=== PATIENT | female | born 1970 | race Caucasian/White ===

== ENCOUNTER 2020-07-18 14:27 | Outpatient (REF) | payer OTHER, SELFPAY ==
--- NOTE | 2020-07-18 | MM_ITS ---
EXAMINATION: MM SCREENING DIGITAL BREAST TOMOSYNTHESIS, BILATERAL CLINICAL INFORMATION: Screening. Asymptomatic. The lifetime risk of breast cancer based on the Tyrer-Cuzick Model is 8%. COMPARISON: Mammography: 07/20/2019, 07/14/2019, 04/07/2018, 12/29/2013; ultrasound right breast 07/20/2019 TECHNIQUE: Digital breast tomosynthesis is performed in both the craniocaudal and mediolateral oblique views along with computer-aided detection (CAD). Synthesized 2D images are generated from the tomosynthesis. FINDINGS: The breasts are heterogeneously dense, which may obscure small masses (ACR BI-RADS breast composition Category c). There are no significant masses, abnormal calcifications, or other abnormalities. The axilla are unremarkable. There is chronic bilateral nipple retraction on CC view similar to prior studies. MM/MM tomosynthesis screening BI IMPRESSION: No significant changes from prior exams. ASSESSMENT: BI-RADS 2: Benign RECOMMENDATION: Routine annual mammography screening. This patient's information was entered into a reminder system with a target due date for their next mammogram.
== END 2020-07-18 14:28 | disposition home or self-care (01) ==
LOC: HO.MAMMO 14:27
PROVIDERS: PCP Internal Medicine; Visit Provider Internal Medicine
DX: Z12.31 Encounter for screening mammogram for malignant neoplasm of breast (principal)
CPT/HCPCS: 77063; 77067

== ENCOUNTER 2021-07-27 13:37 | Outpatient (REF) | payer OTHER, SELFPAY ==
[2021-07-27 19:10] LABS: Free T4 (Free Thyroxine) 1.57 ng/dL (0.71-1.85); Thyroid Stimulating Hormone 1.14 uIU/mL (0.32-4.0)
[2021-07-30 04:11] LABS: SARS COV2 IgG Negative (Negative)
== END 2021-07-27 13:38 | disposition home or self-care (01) ==
LOC: HO.MANLDS 13:37
PROVIDERS: PCP Physician Assistant; Visit Provider Physician Assistant
DX: E03.9 Hypothyroidism, unspecified (principal); U07.1 COVID-19
CPT/HCPCS: 36415; 84439; 84443; 86769

== ENCOUNTER 2021-10-05 10:41 | Outpatient (REF) | payer OTHER, SELFPAY ==
--- NOTE | ~2021-10-05 | MM_ITS ---
EXAMINATION: MM SCREENING DIGITAL BREAST TOMOSYNTHESIS, BILATERAL CLINICAL INFORMATION: Screening. Asymptomatic. The lifetime risk of breast cancer based on the Tyrer-Cuzick Model is 8%. COMPARISON: Mammography: 07/18/2020, 07/20/2019, 07/14/2019, 04/07/2018; right breast ultrasound 07/20/2019. TECHNIQUE: Digital breast tomosynthesis is performed in both the craniocaudal and mediolateral oblique views along with computer-aided detection (CAD). Synthesized 2D images are generated from the tomosynthesis. FINDINGS: The breasts are heterogeneously dense, which may obscure small masses (ACR BI-RADS breast composition Category c). There is no interval mass or architectural abnormality or developing density. Mild bilateral chronic nipple retraction is again demonstrated. There are some scattered bilateral punctate and vascular calcifications again seen. There are no significant changes. MM/MM tomosynthesis screening BI IMPRESSION: No significant changes from prior studies. ASSESSMENT: BI-RADS 2: Benign RECOMMENDATION: Routine annual mammography screening. This patient's information was entered into a reminder system with a target due date for their next mammogram.
== END 2021-10-05 10:42 | disposition home or self-care (01) ==
LOC: HO.MAMMO 10:41
PROVIDERS: PCP Internal Medicine; Visit Provider Internal Medicine
DX: Z12.31 Encounter for screening mammogram for malignant neoplasm of breast (principal)
CPT/HCPCS: 77063; 77067

== ENCOUNTER 2021-12-20 07:57 | Outpatient (REF) | payer OTHER, SELFPAY ==
--- NOTE | ~2021-12-20 | XR_ITS ---
EXAMINATION: BILATERAL KNEES AND LEFT ANKLE CLINICAL INFORMATION: Psoriatic arthropathy, chronic bilateral knee pain COMPARISON: Left ankle 01/29/2017, bilateral knees 06/09/2012 TECHNIQUE: 3 views ankle, 2 views each knee FINDINGS: Left ankle, no significant abnormality is seen without evidence of arthritis. Again noted are 2 small accessory ossicles adjacent to the cuboid. Right knee: There is some minimal narrowing of the medial compartment. A tiny medial distal femoral condyle osteophyte is noted. No joint effusion. No chondrocalcinosis. Left knee: No significant bone joint or soft tissue abnormality is seen. XR/XR knee RT 2V IMPRESSION: Some mild degenerative changes in the knees with some minimal narrowing of the medial compartments bilaterally.
--- NOTE | ~2021-12-20 | XR_ITS ---
EXAMINATION: BILATERAL KNEES AND LEFT ANKLE CLINICAL INFORMATION: Psoriatic arthropathy, chronic bilateral knee pain COMPARISON: Left ankle 01/29/2017, bilateral knees 06/09/2012 TECHNIQUE: 3 views ankle, 2 views each knee FINDINGS: Left ankle, no significant abnormality is seen without evidence of arthritis. Again noted are 2 small accessory ossicles adjacent to the cuboid. Right knee: There is some minimal narrowing of the medial compartment. A tiny medial distal femoral condyle osteophyte is noted. No joint effusion. No chondrocalcinosis. Left knee: No significant bone joint or soft tissue abnormality is seen. XR/XR knee LT 2V IMPRESSION: Some mild degenerative changes in the knees with some minimal narrowing of the medial compartments bilaterally.
--- NOTE | ~2021-12-20 | XR_ITS ---
EXAMINATION: BILATERAL KNEES AND LEFT ANKLE CLINICAL INFORMATION: Psoriatic arthropathy, chronic bilateral knee pain COMPARISON: Left ankle 01/29/2017, bilateral knees 06/09/2012 TECHNIQUE: 3 views ankle, 2 views each knee FINDINGS: Left ankle, no significant abnormality is seen without evidence of arthritis. Again noted are 2 small accessory ossicles adjacent to the cuboid. Right knee: There is some minimal narrowing of the medial compartment. A tiny medial distal femoral condyle osteophyte is noted. No joint effusion. No chondrocalcinosis. Left knee: No significant bone joint or soft tissue abnormality is seen. XR/XR ankle LT min 3V IMPRESSION: Some mild degenerative changes in the knees with some minimal narrowing of the medial compartments bilaterally.
== END 2021-12-20 07:58 | disposition home or self-care (01) ==
LOC: HO.XRAY 07:57
PROVIDERS: PCP Internal Medicine; Visit Provider Internal Medicine Rheumatology
DX: L40.50 Arthropathic psoriasis, unspecified (principal)
CPT/HCPCS: 73560; 73610

== ENCOUNTER 2022-06-23 18:05 | Emergency (ER) | payer OTHER, SELFPAY ==
--- NOTE | ~2022-06-23 | CT_ITS ---
EXAMINATION: CT ABDOMEN AND PELVIS WITHOUT CONTRAST CLINICAL INFORMATION: Flank pain COMPARISON: None TECHNIQUE: Multidetector volumetric imaging was performed from the superior aspect of the liver through the pubic symphysis. Sagittal and coronal reformatted images were obtained on the technologist's workstation. This CT examination was performed using dose optimization techniques as appropriate, variously including the following: *Automated exposure control *Adjustment of mA and/or kV according to patient size (this includes techniques or standardized protocols for targeted exams where dose is matched to indication/reason for exam; i.e. extremities or head) *Use of iterative reconstruction technique DLP: 647 mGy-cm FINDINGS: LUNG BASES: Solid right lower lobe pulmonary micronodule, 4:1. ABDOMINAL AND PELVIC WALL: Unremarkable. LIVER AND BILIARY TREE: Unremarkable. GALLBLADDER: Unremarkable. PANCREAS: Unremarkable. SPLEEN: Unremarkable. ADRENAL GLANDS: Unremarkable. KIDNEYS AND URETERS: A punctate obstructing stone is noted in the distal left ureter, 4:539, with with question of possible additional stone slightly distally 4:574 which results in mild proximal hydroureteronephrosis. Few additional punctate nonobstructing bilateral renal stones are also seen. Left renal hypodensity too small to characterize. GASTROINTESTINAL TRACT: Colonic diverticulosis without evidence of diverticulitis. Normal appendix. VASCULAR: Retroaortic left renal vein. LYMPH NODES/PERITONEUM: No lymphadenopathy. FREE FLUID: None. BLADDER: Unremarkable. PELVIC VISCERA: Sclerosis of the sacroiliac joints which could be seen in the setting of osteitis condensans ilii. OSSEOUS STRUCTURES: Unremarkable. CT/CT abdomen pelvis wo IV con IMPRESSION: * A punctate obstructing stone is noted in the distal left ureter, with question of possible additional stone slightly distally which results in mild proximal hydroureteronephrosis. Few additional punctate nonobstructing bilateral renal stones are also seen. * Solid right lower lobe pulmonary micronodule. Assuming patient has no history of malignancy, recommend follow-up per Fleischner Society recommendations. According to the UPDATED 2017 Fleischner Society recommendations, the advised followup imaging for solid nodules < 6 mm is: * LOW RISK PATIENT: No routine follow up. * HIGH RISK PATIENT: Optional CT at 12 months.
[2022-06-23 20:16] VITALS: BP 124/55; PULSE 58; RESP 18; TEMP 36.5; O2SAT 99; BMI 32.1
[2022-06-23 20:59] LABS: Appearance Urine Clear; Color Urine Yellow; Glucose Urine UA Negative (Negative); Leukocyte Esterase Urine Trace (Negative); Nitrite Urine Negative (Negative); PH 5.5 (5.0-9.0); Specific Gravity - Urine 1.025 (1.005-1.025); UMIC TRIGGER UACC YES; Urine Blood Large (3+) (Negative); Urine Ketones Negative (Negative); Urine Protein Trace mg/dL (Neg-Trace)
[2022-06-23 21:04] LABS: Bacteria Urine None Seen (None Seen); Hyaline Casts Urine 0-2 /LPF (0-2); RBC Urine >20 /HPF (0-2); Squamous Epithelial Cell Urine 0-2 /HPF (0-2); WBC Urine 0-5 /HPF (0-5)
--- OUTSIDE RECORDS SUMMARY | 2022-06-23 22:47 | XMS_ITS ---
:1970 Author Care Team Providers Name Role Phone Noemy Del Cid Mehdi Primary Care Provider Unavailable Allergies Code Code System Name Reaction Severity Status Onset 953741 RxNorm Humira Rash ? Active ? Penicillin Rash Moderate Active ? ? Respiratory Distress Mild Active ? Medications Name Status Start Date Stop Date ? ? albuterol sulfate HFA 90 mcg/actuation aerosol inhaler Active ? Not available azithromycin 250 mg tablet Active ? Not a vailable TAKE 2 TABLETS BY MOUTH TODAY, THEN TAKE 1 TABLET DAILY FOR 4 D AYS betamethasone dipropionate 0.05 % lotion Completed ? 05/24/2020 Cosentyx Pen 300 mg/2 Pens (150 mg/mL) subcutaneous Active ? Not available cyclobenzaprine 10 mg tablet Completed ? 01/2019 Take 1 tablet every day by oral route at bedtime. cyclosporine 0.05 % eye drops in a dropperette Active ? Not available diclofenac 1 % topical gel Active ? Not a vailable APPLY 2G TO AFFECTED AREA EVERY 4-6 HOURS NEEDED. diclofenac sodium 50 mg tablet,delayed release Completed ? 05/24/2020 erythromycin 5 mg/gram (0.5 %) eye ointment Completed ? 06/30/2019 folic acid 1 mg tablet Active ? Not avail able Humira(CF) Pen 40 mg/0.4 mL subcutaneous kit Completed ? 06/30/2019 iron Active ? Not available 325 mg qd levothyroxine 112 mcg tablet Active ? Not available meloxicam 15 mg tablet Completed ? 9 methotrexate sodium 2.5 mg tablet Active ? Not available TAKE 8 TABLETS BY MOUTH ONE TIME PER WEEK methylprednisolone 4 mg tablets in a dose pack Active ? Not available USE DIRECTED molnupiravir 200 mg capsule (EUA) Active ? Not available TAKE 4 CAPSULES EVERY 12 HOURS BY ORAL ROUTE FOR 5 DAYS. nabumetone 750 mg tablet Active ? Not regina ilable Otezla 30 mg tablet Active ? Not availabl e Take 1 mg twice a day by oral route for 30 days. Otezla Starter 10 mg (4)-20 mg (4)-30 mg(47) tablets in Complete d ? 06/30/2019 a dose pack TobraDex 0.3 %-0.1 % eye ointment Completed ? 05/24/2020 Vitamin D3 50 mcg (2,000 unit) tablet Active ? Not available Take 1 tablet every day by oral route. Xeljanz XR 11 mg tablet,extended release Active ? Not available Problems Name Status Onset Date Source ? Hypothyroidism Active 04/08/2018 ? 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 Vitamin D Deficiency Active 06/30/2019 ? Body Mass Index 25-29 - Overweight Active 06/30/2019 ? Wears Bifocal Glasses Active 06/30/2019 ? Covid-19 Active 01/09/2022 ? Pneumonia Caused by SARS-CoV-2 Active 01/11/2022 ? Acute Pharyngitis Active 05/29/2022 ? Procedures Date Name Performed by ? 07/09/2013 Arthroscopic Surgery Information not regina ilable 06/30/2019 Electrocardiogram [facility] [address],[facility] [place] [phone] (Work Place) 06/30/2019 Exercise Stress Test [facility] (Shaista ging) [place] [address] (Work Place) 07/16/2019 MAMMO, Diagnostic, Digital, Unilateral [facility] (Imaging) [place] [address] (Work Place) 05/24/2020 US, Thyroid [facility]Scheduling Dept[facility] [address], [place] [address] (Work Place) Results Lab Results Date Name Specimen Result Interpretation Description Value Range Status Address ? 07/27/2021 TSH + Free T4, Serum ? No observation ? ? ? Keshawn recorded. [facility] (Medical Records): [address] [place] [address] 05/24/2020 TSH + Free T4, Serum ? No observation ? ? ? Keshawn recorded. [facility] : [address] [place] [address] 07/09/2019 Vitamin D, ? No observation ? ? ? Keshawn 25-Hydroxy, Total, recorded. [facility] Serum Laboratory : [address] [place] [address] 07/09/2019 TSH + Free T4, Serum ? No observation ? ? ? Chauncey recorded. [facility] Laboratory : [address] [place] [address] 07/09/2019 Lipids, Total, Serum ? No observation ? ? ? Chauncey recorded. [facility] : [address] [place] [address] 10/13/2018 Vitamin D, 25-Hydroxy ? No observation ? ? ? Chauncey + 1,25-Dihydroxy, recorded. [facility] Serum Laboratory : [address] [place] [address] 10/13/2018 Iron + TIBC + ? No observation ? ? ? Chauncey Ferritin, Serum recorded. [facility] : [address] [place] [address] 04/08/2018 Vitamin D, ? No observation ? ? ? Chauncey 25-Hydroxy, Total, recorded. [facility] : [address] [place] [address] 04/08/2018 Iron + TIBC + ? No observation ? ? ? Chauncey Ferritin, Serum recorded. [facility] : [address] [place] [address] 04/08/2018 TSH + Free T4, Serum ? No observation ? ? ? Chauncey recorded. [facility] : [address] [place] [address], Chauncey ? Electrocardiogram ? Rate & Rhythm 59 sinus ? ? [facility] Internal Medicine: [address] ,[place] ? ? ? Qrs 98 ms ? ? [facility] Internal Medicine: [address] ,[place] ? ? ? AL Interval 134 ms ? ? [facility] Medicine: [address] ,[place] ? ? ? QRS Duration 98 ms ? ? [facility] Internal Medicine: [address] ,[place] ? ? ? QT Interval 420 ? ? [facility] Internal Medicine: [address] ,[place] Past Encounters None recorded. Social History Tobacco Smoking Status Never Smoker Vaccine List Vaccine Type COVID-19, mRNA, LNP-S, PF, 30 mcg/0.3 mL dose (Venafi) 10/06/2020 11/06/2020 Tdap 0.5 mL 0.5 mL Plan of Care Reminders Provider Appointments None recorded. ? ? Lab None recorded. ? ? Referral None recorded. ? ? Procedures None recorded. ? ? Surgeries None recorded. ? ? Imaging None recorded. ? ? Vitals 05/24/2020 09:30AM NEW PROBLEM 15 Height Weight BMI Blood Pressure 5 ft 2 in 163.7 lbs 29.9 kg/m2 120/70 mm[Hg] 06/30/2019 01:30PM ANNUAL EXAM Height Weight BMI Blood Pressure 5 ft 2 in 161.6 lbs 29.6 kg/m2 110/78 mm[Hg] 10/14/2018 09:00AM FOLLOW UP 15 Height Blood Pressure 5 ft 2.25 in 110/62 mm[Hg] 04/08/2018 11:45AM NEW PATIENT 30 Height Weight BMI Blood Pressure 5 ft 2.25 in 157.7 lbs 28.6 kg/m2 94/62 mm[Hg]
--- NOTE | 2022-06-23 22:56 | ED.GENADULT ---
HPI - General Adult General Chief complaint: General Medical Stated complaint: lower back pain,? UTI Time Seen by Provider: 06/23/22 22:55 Source: patient and family (, Bk) Mode of arrival: ambulatory Limitations: no limitations History of Present Illness HPI narrative: 51-year-old female who presents emergency department for evaluation frequency, lower abdominal pressure, left flank pain. Patient states that over the last 3-4 days she has had felt a pressure-like sensation in her lower bladder. She states she has also had frequency where she will urinate and the need to urinate again but only in small amounts. She denied dysuria. She states that today she had a sudden onset of severe left flank pain at 16:00 hours. The pain was a constant sharp pain that came on suddenly was greater than 10/10. She had associated nausea and 2 episodes of vomiting. She states she took Tylenol at 16:00 hours with only minimal improvement of her pain. On presentation to the emergency room her pain was greater than 10/10 at the time my evaluation the patient's pain is 5/10. This is the patient's 1st episode of this type of pain. 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 complaint: Left flank pain Onset (ago): hour(s) (6) Location: left (Flank) Radiation: non-radiation Severity: severe Severity scale (1-10): >10 Quality: sharp Pain Consistency: constant Relieving factors: none Exacerbating factors: none Associated symptoms: nausea/vomiting and other (Urinary frequency) Treatments prior to arrival: other (Tylenol) Related Data Previous Rx's Medication Instructions Recorded morphine 15 mg immediate release 15 mg PO Q4-6H PRN pain #14 tabs 06/24/22 tablet Allergies Allergy/AdvReac Type Severity Reaction Status Date / Time adalimumab [Humira] Allergy Unknown Verified 07/20/19 00:00 penicillin V Allergy Unknown hives, Verified 11/19/17 00:00 throat swelling Penicillins [PENICILLINS] Allergy Unknown HIVES, Unverified 05/11/20 14:51 DIFF BREATHING penicillin Allergy Unknown Uncoded 07/20/19 00:00 Review of Systems Review of Systems: Yes all other systems are reviewed and are negative PMFSH Past Medical History PMFSH Narrative: Past medical history: Psoriatic arthritis on biologic agent, 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 Past surgical history left kidney surgery (partial removal secondary to infection when she was 6 years old. Social history: She denies tobacco, alcohol and drug use. Social History Social History Advance Directives: No Advance Directives Information Provided: No Patient : No Physical Exam ED Vital Signs: Vital Signs - 24 hr 06/23/22 20:16 06/23/22 23:56 Temperature 97.7 F 98.3 F Pulse Rate 58 51 Respiratory Rate 18 16 Blood Pressure 124/55 L 112/48 L Pulse Oximetry 99 99 Oxygen Delivery Method Room Air Room Air BMI result Body Mass Index 32.1 Const General: cooperative and no acute distress Orientation/consciousness: oriented to person and oriented to place Limitations: no limitations HENMT Head: Yes normal to inspection, Yes normocephalic and Yes atraumatic Ears: external ears normal General nose exam: Normal external nose present Face and sinus: Yes normal facial exam Mouth: Normal oral and palatal mucosa present Throat: Yes posterior oropharynx normal Eyes General: appearance normal, both eyes and all related structures Pupils: Equal, round and reactive pupils present Neck Neck: Yes normal visual inspection, Yes no lymphadenopathy, Yes trachea midline and Yes supple Chest Chest palpation & inspection: normal inspection of the chest and normal palpation of entire chest wall Resp Effort & Inspection: normal respiratory effort and able to speak in complete sentences Auscultation: clear to auscultation bilaterally Cardio Rate: regular rate Rhythm: regular rhythm Heart sounds: S1 normal heart sound present, S2 normal heart sound present and no murmurs GI Inspection: Yes normal to inspection Palpation (GI): Soft to palpation, Tenderness to palpation present (GI) in the LLQ (Moderate), in the RLQ (Mild) and suprapubicly (Moderate) and no guarding Auscultation: normal bowel sounds General: Yes CVA tenderness on the left (Mild) Back/Spine/Pelvis Back: CVA tenderness Skin General skin exam: no rashes or lesions noted Neuro General: oriented to person and oriented to place Cranial nerves: Yes CN's II-XII intact bilaterally and Yes Equal, round and reactive pupils present Cognition (Neuro): normal cognition Motor exam (neuro): 5/5 motor strength present throughout Extrem General: Yes normal to inspection Psych Appearance: grossly normal Speech and movement: Normal speech and movement present Affect: normal affect Attitude: cooperative Thought process: Normal thought process present Thought content: Normal thought content present Course Course Course Narrative: 51-year-old female who presents emergency department for evaluation of lower abdominal pressure with urinary frequency times 2 days with sudden onset of left flank pain that occurred today at 16:00 hours which was a constant, sharp pain which was greater than 10/10. Patient had associated nausea and vomiting. At the time of my evaluation her pain improved to 5/10 without treatment. Vital signs were unremarkable. Physical examination did revealed mild left CVA tenderness, moderate suprapubic and left lower quadrant tenderness and mild right lower quadrant tenderness. The patient did have a urinalysis at triage which revealed 3+ blood and trace leukocyte esterase with the microscopic revealing greater than 20 RBCs, 0 WBCs and no bacteria. Patient's presentation is consistent with kidney stone/ureteral stone. I did order laboratory evaluation includes CBC, CMP and lipase. I will obtain a CT scan of the abdomen pelvis without IV contrast to further evaluate her abdominal pain. 0130: Patient did get improvement with the above treatment. Laboratory evaluation did reveal an elevated WBC 42218 and elevated BUN of [address] scan of the abdomen pelvis with IV contrast revealed 2 punctate stones in the distal left ureter with mild proximal hydroureteronephrosis. Patient also had additional bilateral punctate nonobstructing renal stones. There were several incidental findings which I did discuss with the patient as well. Patient was advised to take Tylenol for pain and for pain not relieved by Tylenol she was prescribed morphine. She is also prescribed Zofran ODT for her nausea and vomiting. She was given printed and verbal instructions. She will need to follow-up with our on-call urologist. Medical Decision Making Lab Data Result diagrams: 06/23/22 23:24 06/23/22 23:24 Labs: Lab Results 06/23/22 06/23/22 06/23/22 Range/Units 20:32 23:24 23:24 WBC 19.1 H (4.8-10.8) X10*3/uL RBC 4.44 (4.20-5.50) X10*6/uL Hgb 13.9 (12.0-16.0) g/dl Hct 41.5 (37.0-47.0) % MCV 93.5 (80.0-98.0) fL MCH 31.3 (27.0-33.0) pg MCHC 33.5 (31.0-35.0) g/dl RDW 13.5 (11.0-16.0) % Plt Count 447 H (160-400) X10*3/uL MPV 9.3 L (9.4-12.3) fL Immature Gran % (Auto) 0.7 H (0.0-0.4) % Neut % (Auto) 79.8 H (45-73) % Lymph % (Auto) 14.9 L (20-40) % [place] % (Auto) 4.3 (2-11) % Eos % (Auto) 0.1 (0-4) % Baso % (Auto) 0.2 (0-2) % Lymph # (Auto) 2.8 (1.2-4.9) X10*3/uL [place] # (Auto) 0.8 (0.1-1.2) X10*3/uL Eos # (Auto) 0.0 (0.0-0.4) X10*3/uL Baso # (Auto) 0.0 (0.0-0.2) X10*3/uL Abs Immat Gran (auto) 0.14 H (0.00-0.03) X10*3/uL Absolute Neuts (auto) 15.2 H (2.0-8.3) x10*3/uL Absolute Nucleated RBC 0.000 (0.0-0.012) X10*3/uL Nucleated RBC % (auto) 0.0 (0.0-0.2) /100WBC Sodium 140 (135-145) mmol/L Potassium 4.1 (3.3-5.1) mmol/L Chloride 104 (96-108) mmol/L Carbon Dioxide 25 (22-29) mmol/L Anion Gap 15 (12-20) BUN 25 H (9-16) mg/dL Creatinine 0.86 (0.5-1.4) mg/dL Estim Creat Clear Calc 73.5 Estimated GFR > 60 Random Glucose 95 (60-115) mg/dL Calcium 9.7 (8.4-10.2) mg/dL Total Bilirubin 0.4 (0.0-1.0) mg/dL AST 17 (5-31) U/L ALT 20 (0-31) U/L Alkaline Phosphatase 70 (39-117) U/L Total Protein 7.9 (6.5-8.0) g/dL Albumin 4.6 (3.5-5.0) g/dL Lipase 11 (8-78) U/L Urine Color Yellow Urine Appearance Clear Urine pH 5.5 (5.0-9.0) Ur Specific [place] 1.025 (1.005-1.025) Urine Protein Trace (Neg-Trace) mg/dL Urine Glucose (UA) Negative (Negative) mg/dL Urine Ketones Negative (Negative) mg/dL Urine Blood Large (3+) H (Negative) Urine Nitrite Negative (Negative) Ur Leukocyte Esterase Trace H (Negative) Urine RBC >20 H (0-2) /HPF Urine WBC 0-5 (0-5) /HPF Ur Squamous Epith Cells 0-2 (0-2) /HPF Urine Bacteria None Seen (None Seen) Hyaline Casts 0-2 (0-2) /LPF Discharge Plan Discharge Clinical Impression: Renal colic on left side, Left ureteral calculus, Bilateral renal stones Patient Disposition: Home, Self-Care Instructions: How to Strain Your Urine (ED), Ureteral Stones (ED) Additional Instructions: Your blood work [place] [address], at this time I suspect that this is caused by your pain and not by an infectious process. Your urine did reveal blood in the urine which is consistent with a kidney stone but there was no evidence for a urine infection. The CT scan of your abdomen pelvis without IV contrast did reveal 2 very small stones in the left distal ureter (the tube that connects the kidney to the bladder). These 2 small stones are the cause of your left sided flank pain in your symptom of having to urinate frequently and having bladder pressure. Take Tylenol (acetaminophen) 2 pills every 4-6 hours as needed for pain. For pain not relieved by Tylenol take morphine 15 mg pills, 1 pill every 4 hours as needed for pain. This medication will make you sleepy, do not drive or work while taking this medication. Morphine is a narcotic medication and can be addicting. If you are concerned about addiction you can ask the pharmacist for less pills or do not get this prescription filled. Follow-up with your doctor in 2 days. Please return to the emergency department if your symptoms get worse or if you develop any symptoms that are concerning to you. You had several incidental findings on your CT scan as I discussed with you, that are not related to your symptoms that you had today. You have a solid right lower lobe pulmonary micronodule which may require follow-up as per the radiologist's recommendation. You should discuss getting a CT scan of your chest with your primary care doctor based on your primary care doctor's assessment of your risks for lung cancer. Prescriptions: New morphine 15 mg tablet 15 mg PO Q4-6H PRN (Reason: pain) Qty: 14 0RF Rx Instructions: Patient may request partial fill; Partial Fill upon patient request. Referrals: Pasquale Stewart MD [Physician] - 10 days
[2022-06-23 23:28] LABS: MANUAL DIFF FLAG NO
[2022-06-23 23:29] LABS: Basophils Percent Auto 0.2 % (0-2); Eosinophils Percent Auto 0.1 % (0-4); Hematocrit 41.5 % (37.0-47.0); Hemoglobin 13.9 g/dl (12.0-16.0); Imm Gran Abs Auto 0.14 X10*3/uL (0.00-0.03); Imm Gran Pct Auto 0.7 % (0.0-0.4); Lymphocytes Absolute Auto 2.8 X10*3/uL (1.2-4.9); Lymphocytes Percent Auto 14.9 % (20-40); Mean Corpuscular HGB Conc 33.5 g/dl (31.0-35.0); Mean Corpuscular Hemoglobin 31.3 pg (27.0-33.0); Mean Corpuscular Volume 93.5 fL (80.0-98.0); Mean Platelet Volume 9.3 fL (9.4-12.3); Monocytes Absolute Auto 0.8 X10*3/uL (0.1-1.2); Monocytes Percent Auto 4.3 % (2-11); Neutrophils Absolute Auto 15.2 x10*3/uL (2.0-8.3); Neutrophils Percent Auto 79.8 % (45-73); Platelet Count 447 X10*3/uL (160-400); Red Blood Count 4.44 X10*6/uL (4.20-5.50); Red Cell Distribution Width 13.5 % (11.0-16.0); White Blood Count 19.1 X10*3/uL (4.8-10.8)
[2022-06-23] MEDS: Ketorolac Tromethamine 15 MG/ML VIAL IVPUSH (23:29)
[2022-06-23 23:56] VITALS: BP 112/48; PULSE 51; RESP 16; TEMP 36.8; O2SAT 99
[2022-06-23 23:56] LABS: Alanine Aminotransferase 20 U/L (0-31); Albumin Level 4.6 g/dL (3.5-5.0); Alkaline Phosphatase 70 U/L (39-117); Anion Gap 15 (12-20); Aspartate Amino Transferase 17 U/L (5-31); Bilirubin Total 0.4 mg/dL (0.0-1.0); Blood Urea Nitrogen 25 mg/dL (9-16); Calcium 9.7 mg/dL (8.4-10.2); Carbon Dioxide 25 mmol/L (22-29); Chloride 104 mmol/L (96-108); Creatinine Clr Calc Pharmacy 73.5; Estimated Glomerular Filt Rate > 60; Glucose Random 95 mg/dL (60-115); Lipase 11 U/L (8-78); Potassium 4.1 mmol/L (3.3-5.1); Sodium 140 mmol/L (135-145); Total Protein 7.9 g/dL (6.5-8.0)
[2022-06-24] MEDS: 0.9 % Sodium Chloride 1,000 ML 999 ML IV (00:04)
[2022-06-24 01:56] VITALS: BP 112/59; PULSE 59; RESP 16; O2SAT 99
== END 2022-06-24 01:57 | disposition home or self-care (01) ==
PROVIDERS: Emergency Provider Emergency Medicine Emergency Medical Services; PCP Internal Medicine
DX: N13.2 Hydronephrosis with renal and ureteral calculous obstruction (principal); N23 Unspecified renal colic
CPT/HCPCS: 36415; 74176; 80053; 81001; 81003; 83690; 85025; 96361; 96374; 99284; 99285; J1885

== ENCOUNTER 2022-06-25 11:31 | Inpatient (IN) | payer OTHER, SELFPAY ==
--- NOTE | ~2022-06-25 | FL_ITS ---
EXAMINATION: XR FLUOROSCOPY WITH IMAGES CLINICAL INFORMATION: Left-sided stent placement. COMPARISON: CT abdomen and pelvis 06/23/2022 TECHNIQUE: Fluoroscopy performed by Dr. Mouna Davis. Fluoroscopy time: 39.4 seconds. Cumulative Dose: 13.25 mGy. Images: 2. FINDINGS: Double-J stent is present with its proximal end coiled in the renal pelvis and the distal end in the bladder. FL/FL guidance in OR IMPRESSION: Fluoroscopy and spot films provided during left double-J stent placement.
[2022-06-25 11:33] VITALS: BP 146/67; PULSE 88; RESP 19; TEMP 36.1; O2SAT 99; BMI 32.1
[2022-06-25 11:53] LABS: Basophils Percent Auto 0.2 % (0-2); Eosinophils Percent Auto 0.1 % (0-4); Hematocrit 41.5 % (37.0-47.0); Hemoglobin 13.8 g/dl (12.0-16.0); Imm Gran Pct Auto 0.8 % (0.0-0.4); Lymphocytes Absolute Auto 1.7 X10*3/uL (1.2-4.9); Lymphocytes Percent Auto 6.8 % (20-40); MANUAL DIFF FLAG SCAN; Mean Corpuscular HGB Conc 33.3 g/dl (31.0-35.0); Mean Corpuscular Hemoglobin 31.1 pg (27.0-33.0); Mean Corpuscular Volume 93.5 fL (80.0-98.0); Monocytes Absolute Auto 1.6 X10*3/uL (0.1-1.2); Monocytes Percent Auto 6.6 % (2-11); Neutrophils Percent Auto 85.5 % (45-73); Platelet Count 413 X10*3/uL (160-400); Red Blood Count 4.44 X10*6/uL (4.20-5.50); Red Cell Distribution Width 13.6 % (11.0-16.0); SCAN SMEAR FLAG 1; White Blood Count 24.6 X10*3/uL (4.8-10.8)
[2022-06-25 11:56] LABS: UPreg QC Valid YES; Urine Pregnancy NEGATIVE (NEGATIVE)
[2022-06-25 12:07] LABS: Appearance Urine Cloudy; Color Urine Yellow; Glucose Urine UA Negative (Negative); Leukocyte Esterase Urine Small (1+) (Negative); Nitrite Urine Negative (Negative); PH 5.5 (5.0-9.0); Specific Gravity - Urine 1.025 (1.005-1.025); UMIC TRIGGER UACC YES; Urine Blood Large (3+) (Negative); Urine Ketones Trace mg/dL (Negative); Urine Protein Trace mg/dL (Neg-Trace)
[2022-06-25 12:08] LABS: Anion Gap 16 (12-20); Blood Urea Nitrogen 24 mg/dL (9-16); Calcium 9.6 mg/dL (8.4-10.2); Carbon Dioxide 24 mmol/L (22-29); Chloride 106 mmol/L (96-108); Creatinine Clr Calc Pharmacy 57.5; Estimated Glomerular Filt Rate 53; Glucose Random 109 mg/dL (60-115); Potassium 4.2 mmol/L (3.3-5.1); Sodium 142 mmol/L (135-145)
[2022-06-25 12:10] LABS: Bacteria Urine None Seen (None Seen); RBC Urine >20 /HPF (0-2); UACC Culture Trigger YES; WBC Urine 21-50 /HPF (0-5)
[2022-06-25 12:18] LABS: SLIDE REVIEW VERIFIED
[2022-06-25] MEDS: 0.9 % Sodium Chloride 1,000 ML 999 ML IV (12:55)
--- NOTE | 2022-06-25 12:57 | ED.FEMALEGU ---
HPI - Female Genitourinary General Chief complaint: Urogenital-Female Stated complaint: returning with kidney stones Time Seen by Provider: 06/25/22 12:16 Source: patient Mode of arrival: ambulatory Limitations: no limitations History of Present Illness HPI Narrative: 51-year-old female with history of psoriatic arthritis, Bradley's disease presents with left flank pain, nausea, vomiting, suprapubic discomfort, urinary urgency and voiding small amounts. Patient was seen here June 23. Diagnosed with left punctate obstructing stone in the distal left ureter with question of slightly distal stone with mild proximal hydroureteronephrosis. Patient at that [place] [address]. She fell discharge and was sent home with morphine for pain and recommendations to follow-up with Urology. Patient reports continued pain despite taking morphine now with vomiting and now with some urinary symptoms as well. No fevers or chills. Related Data Home Medications Medication Instructions Recorded Confirmed cholecalciferol (vitamin D3) 50 50 mcg PO BEDTIME 06/25/22 06/25/22 mcg (2,000 unit) capsule cyclosporine 0.05 % eye drops in a 1 drp ophthalmic (eye) BID 06/25/22 06/25/22 dropperette (Restasis) ferrous sulfate 325 mg (65 mg 325 mg PO BEDTIME 06/25/22 06/25/22 iron) tablet folic acid 1 mg tablet 1 tab PO DAILY@0630 06/25/22 06/25/22 levothyroxine 112 mcg tablet 1 tab PO DAILY@0630 06/25/22 06/25/22 methotrexate sodium 2.5 mg tablet 8 tab PO QWEEK 06/25/22 06/25/22 nabumetone 750 mg tablet 1 tab PO BID 06/25/22 06/25/22 secukinumab 150 mg/mL subcutaneous 2 syringe subcut Q4W 06/25/22 06/25/22 pen injector (Cosentyx Pen 300 mg/2 Pens () Previous Rx's Medication Instructions Recorded morphine 15 mg immediate release 15 mg PO Q4-6H PRN pain #14 tabs 06/24/22 tablet Allergies Allergy/AdvReac Type Severity Reaction Status Date / Time adalimumab [Humira] Allergy Unknown Verified 07/20/19 00:00 penicillin V Allergy Unknown hives, Verified 11/19/17 00:00 throat swelling Penicillins [PENICILLINS] Allergy Unknown HIVES, Unverified 05/11/20 14:51 DIFF BREATHING penicillin Allergy Unknown Uncoded 07/20/19 00:00 Review of Systems Review of Systems: Yes all other systems are reviewed and are negative Constitutional: Constitutional: Reports no additional constitutional complaints, Denies body ache(s), Denies chills, Denies fever(s), Denies headache(s) and Denies weakness Eyes: Eyes: Reports no additional eye complaints and Denies change in vision ENT: Reports system reviewed and no additional complaints, except as documented, Denies dizziness, Denies headache(s), Denies nasal congestion, Denies nasal discharge and Denies neck pain Cardiovascular: Cardiovascular: Reports no additional cardiovascular complaints, Denies chest pain, Denies leg edema and Denies dyspnea Respiratory: Respiratory: Reports no additional respiratory complaints, Denies cough and Denies dyspnea Gastrointestinal: Gastrointestinal: Reports no additional gastrointestinal complaints, Denies abdominal pain, Denies diarrhea, Reports nausea and Reports vomiting Genitourinary: Genitourinary: Reports no additional female genitourinary complaints, Denies dysuria, Reports flank pain, Denies urinary incontinence, Reports urinary hesitancy and Reports urinary urgency Musculoskeletal: Musculoskeletal: Reports no additional musculoskeletal complaints, Reports back pain, Denies arthralgias, Denies joint swelling, Denies neck pain, Denies numbness and Denies tingling Integumentary/Breasts: Skin/Breast: Reports system reviewed and no additional complaints, except as docu and Denies rash Neurologic: Reports system reviewed and no additional complaints, except as documented, Denies Abnormal speech present, Denies dizziness, Denies headache(s), Denies numbness, Denies tingling and Denies weakness [facility] Past Medical History Attestation statement: The following information was validated with the patient. Source: old records reviewed and nursing notes reviewed Social History Social History Advance Directives: No Advance Directives Information Provided: Yes Physical Exam Vital Signs: Vital Signs: Last Vital Signs Temp 97 F 06/25/22 11:33 Pulse 88 06/25/22 11:33 Resp 19 06/25/22 11:33 BP 146/67 H 06/25/22 11:33 Pulse Ox 99 06/25/22 11:33 O2 Del Method 06/25/22 11:33 BMI result Body Mass Index 32.1 Const: General: cooperative, healthy appearing, comfortable and no acute distress Orientation/consciousness: patient oriented x3 Limitations: no limitations HEENT: Head: Yes normal to inspection Ears: hearing grossly normal bilaterally General nose exam: Normal external nose present Face and sinus: Yes normal facial exam Mouth: Normal oral and palatal mucosa present Throat: Yes posterior oropharynx normal Eyes: General: appearance normal, both eyes and all related structures Pupils: Equal, round and reactive pupils present Neck: Neck: Yes normal visual inspection Chest: Chest palpation & inspection: normal inspection of the chest Resp: Effort & Inspection: normal respiratory effort Auscultation: clear to auscultation bilaterally Cardio: Rate: regular rate Rhythm: regular rhythm Peripheral pulses: Peripheral pulses 2+ throughout GI: Inspection: Yes normal to inspection Palpation (GI): Soft to palpation and nontender Auscultation: normal bowel sounds : General: Yes CVA tenderness (Left side) Back/Spine/Pelvis: Back: CVA tenderness (Left side) Thoracic/Lumbar Spine: thoracic and lumbar spine normal to inspection Skin: General skin exam: no rashes or lesions noted Neuro: General: patient oriented x3, no focal motor deficits and normal sensation to monofilament Cranial nerves: Yes Equal, round and reactive pupils present Cognition (Neuro): normal cognition Speech: No Abnormal speech present Gait exam (Neuro): Normal gait present Motor exam (neuro): 5/5 motor strength present throughout Extrem: General: Yes normal to inspection Course Course Course Narrative: 1255-UA is consistent with UTI. At this time infection is suspected. Antibiotics ordered. Reviewed additional labs. Patient has leukocytosis worsening from previous. Anticipate patient will need admission. Will consult Urology and medicine Consultations Consultation #1: UROLOGY DR. JANG-AT THIS TIME NO NEED FOR REPEAT IMAGING. MANAGED CONSERVATIVELY WITH IV FLUIDS AND ANTIBIOTICS Consultation #2: 1400-Spoke to Dr Rhodes who accepted admission. MDM - Female Genitourinary MDM Narrative Medical decision making narrative: 51-year-old female diagnosed with left kidney stone on the presents with worsening pain now with vomiting and some urinary urgency, frequency and voiding small amounts. Will need labs, UA Medical Records Attestation: I reviewed the patient's medical records. Lab Data Attestation: I reviewed the patient's lab results. Result diagrams: 06/25/22 11:44 06/25/22 11:44 Labs: Lab Results 06/25/22 06/25/22 06/25/22 Range/Units 11:44 11:44 11:44 WBC 24.6 H (4.8-10.8) X10*3/uL RBC 4.44 (4.20-5.50) X10*6/uL Hgb 13.8 (12.0-16.0) g/dl Hct 41.5 (37.0-47.0) % MCV 93.5 (80.0-98.0) fL MCH 31.1 (27.0-33.0) pg MCHC 33.3 (31.0-35.0) g/dl RDW 13.6 (11.0-16.0) % Plt Count 413 H (160-400) X10*3/uL MPV 9.0 L (9.4-12.3) fL Immature Gran % (Auto) 0.8 H (0.0-0.4) % Neut % (Auto) 85.5 H (45-73) % Lymph % (Auto) 6.8 L (20-40) % [place] % (Auto) 6.6 (2-11) % Eos % (Auto) 0.1 (0-4) % Baso % (Auto) 0.2 (0-2) % Lymph # (Auto) 1.7 (1.2-4.9) X10*3/uL [place] # (Auto) 1.6 H (0.1-1.2) X10*3/uL Eos # (Auto) 0.0 (0.0-0.4) X10*3/uL Baso # (Auto) 0.0 (0.0-0.2) X10*3/uL Abs Immat Gran (auto) 0.20 H (0.00-0.03) X10*3/uL Absolute Neuts (auto) 21.0 H (2.0-8.3) x10*3/uL Absolute Nucleated RBC 0.000 (0.0-0.012) X10*3/uL Nucleated RBC % (auto) 0.0 (0.0-0.2) /100WBC Smear Tech's Comments VERIFIED Sodium 142 (135-145) mmol/L Potassium 4.2 (3.3-5.1) mmol/L Chloride 106 (96-108) mmol/L Carbon Dioxide 24 (22-29) mmol/L Anion Gap 16 (12-20) BUN 24 H (9-16) mg/dL Creatinine 1.10 (0.5-1.4) mg/dL Estim Creat Clear Calc 57.5 Estimated GFR 53 Random Glucose 109 (60-115) mg/dL Lactic Acid (0.5-2.0) mmol/L Calcium 9.6 (8.4-10.2) mg/dL Total Bilirubin 0.3 (0.0-1.0) mg/dL Direct Bilirubin 0.3 (0.0-0.5) mg/dL AST 17 (5-31) U/L ALT 17 (0-31) U/L Alkaline Phosphatase 73 (39-117) U/L Total Protein 7.7 (6.5-8.0) g/dL Albumin 4.5 (3.5-5.0) g/dL Urine Color Yellow Urine Appearance Cloudy Urine pH 5.5 (5.0-9.0) Ur Specific [place] 1.025 (1.005-1.025) Urine Protein Trace (Neg-Trace) mg/dL Urine Glucose (UA) Negative (Negative) mg/dL Urine Ketones Trace (Negative) mg/dL Urine Blood Large (3+) H (Negative) Urine Nitrite Negative (Negative) Ur Leukocyte Esterase Small (1+) H (Negative) Urine RBC >20 H (0-2) /HPF Urine WBC 21-50 H (0-5) /HPF Ur Squamous Epith Cells 6-10 (0-2) /HPF Urine Bacteria None Seen (None Seen) Hyaline Casts 3-5 (0-2) /LPF Urine Test (NEGATIVE) COVID-19 (KAMILA) (Negative) COVID-19 Clin Com 06/25/22 06/25/22 06/25/22 Range/Units 11:44 12:41 14:00 WBC (4.8-10.8) X10*3/uL RBC (4.20-5.50) X10*6/uL Hgb (12.0-16.0) g/dl Hct (37.0-47.0) % MCV (80.0-98.0) fL MCH (27.0-33.0) pg MCHC (31.0-35.0) g/dl RDW (11.0-16.0) % Plt Count (160-400) X10*3/uL MPV (9.4-12.3) fL Immature Gran % (Auto) (0.0-0.4) % Neut % (Auto) (45-73) % Lymph % (Auto) (20-40) % [place] % (Auto) (2-11) % Eos % (Auto) (0-4) % Baso % (Auto) (0-2) % Lymph # (Auto) (1.2-4.9) X10*3/uL [place] # (Auto) (0.1-1.2) X10*3/uL Eos # (Auto) (0.0-0.4) X10*3/uL Baso # (Auto) (0.0-0.2) X10*3/uL Abs Immat Gran (auto) (0.00-0.03) X10*3/uL Absolute Neuts (auto) (2.0-8.3) x10*3/uL Absolute Nucleated RBC (0.0-0.012) X10*3/uL Nucleated RBC % (auto) (0.0-0.2) /100WBC Smear Tech's Comments Sodium (135-145) mmol/L Potassium (3.3-5.1) mmol/L Chloride (96-108) mmol/L Carbon Dioxide (22-29) mmol/L Anion Gap (12-20) BUN (9-16) mg/dL Creatinine (0.5-1.4) mg/dL Estim Creat Clear Calc Estimated GFR Random Glucose (60-115) mg/dL Lactic Acid 1.6 (0.5-2.0) mmol/L Calcium (8.4-10.2) mg/dL Total Bilirubin (0.0-1.0) mg/dL Direct Bilirubin (0.0-0.5) mg/dL AST (5-31) U/L ALT (0-31) U/L Alkaline Phosphatase (39-117) U/L Total Protein (6.5-8.0) g/dL Albumin (3.5-5.0) g/dL Urine Color Urine Appearance Urine pH (5.0-9.0) Ur Specific [place] (1.005-1.025) Urine Protein (Neg-Trace) mg/dL Urine Glucose (UA) (Negative) mg/dL Urine Ketones (Negative) mg/dL Urine Blood (Negative) Urine Nitrite (Negative) Ur Leukocyte Esterase (Negative) Urine RBC (0-2) /HPF Urine WBC (0-5) /HPF Ur Squamous Epith Cells (0-2) /HPF Urine Bacteria (None Seen) Hyaline Casts (0-2) /LPF Urine Test NEGATIVE (NEGATIVE) COVID-19 (KAMILA) Negative (Negative) COVID-19 Clin Com See Note Discharge Plan Discharge Clinical Impression: Pyelonephritis, Hydronephrosis, Ureteral stone, Nephrolithiasis Patient Disposition: Admitted As Inpatient
[2022-06-25 13:05] LABS: Lactic Acid 1.6 mmol/L (0.5-2.0)
--- OUTSIDE RECORDS SUMMARY | 2022-06-25 13:08 | XMS_ITS ---
:1970 Author Care Team Providers Name Role Phone Noemy Del Cid Mehdi Primary Care Provider Unavailable Allergies Code Code System Name Reaction Severity Status Onset 104860 RxNorm Humira Rash ? Active ? Penicillin [...] Surgery Information not regina ilable 06/30/2019 Electrocardiogram [facility] [address],[facility] [place] [phone] (Work Place) 06/30/2019 Exercise Stress Test [facility] (Shaista ging) [place] [address] (Work Place) 07/16/2019 MAMMO, Diagnostic, Digital, Unilateral [facility] [place] (Imaging) [place] [address] (Work Place) 05/24/2020 US, Thyroid [facility] (Scheduling Dept[facility] [address], [place] [address] (Work Place) Results Lab Results Date Name Specimen Result Interpretation Description Value Range Status Address ? 07/27/2021 TSH + Free T4, Serum ? No observation ? ? ? [place] recorded. [facility] (Medical Records): [address] [place] [address] 05/24/2020 TSH + Free T4, Serum ? No observation ? ? ? [place]hawn recorded. [facility] : [address] [place] [address] 07/09/2019 Vitamin D, ? No observation ? ? ? [place]hawn 25-Hydroxy, Total, recorded. [facility] Serum Laboratory : [address] [place] [address] 07/09/2019 TSH + Free T4, Serum ? No observation ? ? ? [place] recorded. [facility] Laboratory : [address] [place] [address] 07/09/2019 Lipids, Total, Serum ? No observation ? ? ? [place] recorded. [facility] : [address] [place] [address] 10/13/2018 Vitamin D, 25-Hydroxy ? No observation ? ? ? [place] + 1,25-Dihydroxy, recorded. [facility] : [address] [place] [address] 10/13/2018 Iron + TIBC + ? No observation ? ? ? [place] Ferritin, Serum recorded. [facility] : [address] [place] [address] 04/08/2018 Vitamin D, ? No observation ? ? ? [place] 25-Hydroxy, Total, recorded. [facility] : [address] [place] [address] 04/08/2018 Iron + TIBC + ? No observation ? ? ? [place] Ferritin, Serum recorded. [facility] : [address] [place] [address] 04/08/2018 TSH + Free T4, Serum ? No observation ? ? ? [place] recorded. [facility] : [address] [place] [address], [place] ? Electrocardiogram ? Rate & Rhythm 59 sinus ? ? [facility] Internal Medicine: [address] ,[place] ? ? ? Qrs 98 ms ? ? [facility] Internal Medicine: [address] ,[place], [place] ? ? ? [place] Interval 134 ms ? ? [facility] Internal Medicine: [address] ,[place] ? ? ? QRS Duration 98 ms ? ? [facility] Internal Medicine: [address] ,[place] ? ? ? QT Interval 420 ? ? [facility] Internal Medicine: [address] ,[place] Past Encounters None recorded. Social History Tobacco Smoking Status Never Smoker Vaccine List Vaccine Type COVID-19, mRNA, LNP-S, PF, 30 mcg/0.3 mL dose (Profig) 10/06/2020 11/06/2020 Tdap 0.5 mL 0.5 mL [...]
--- NOTE | 2022-06-25 13:20 | PM.UROCN ---
History of Present Illness Consult details Consult date: 06/25/22 Narrative: 51-year-old female with history of psoriatic arthritis, Bradley's disease presents with left flank pain, nausea, vomiting, suprapubic discomfort, urinary urgency and voiding small amounts.? The patient states this is her first episode with kidney stone issues. The Patient was seen here June 23.? Diagnosed with left punctate obstructing stone in the distal left ureter with question of slightly more distal stone with mild proximal hydroureteronephrosis.? She was sent home with PO morphine instructions on urology fu. She returns today with continued pain now with vomiting and some irritative urinary symptoms as well.? No fevers or chills. She denies recurrent UTI's. Pertinent Findings: CT Abd/pelvis 06/23/22--KIDNEYS AND URETERS: A punctate obstructing stone is noted in the distal left ureter, 4:539, with with question of possible additional stone slightly distally 4:574 which results in mild proximal hydroureteronephrosis. Few additional punctate nonobstructing bilateral renal stones are also seen. Left renal hypodensity too small to characterize. Review of Systems Review of Systems: 10 point ROS negative other than stated in [facility] Social History Social History Advance Directives: No Advance Directives Information Provided: Yes Meds Allergies Allergy/AdvReac Type Severity Reaction Status Date / Time adalimumab [Humira] Allergy Unknown Verified 07/20/19 00:00 penicillin V Allergy Unknown hives, Verified 11/19/17 00:00 throat swelling Penicillins [PENICILLINS] Allergy Unknown HIVES, Unverified 05/11/20 14:51 DIFF BREATHING penicillin Allergy Unknown Uncoded 07/20/19 00:00 Active Medications: Current Medications Sodium Chloride (Ns) 1,000 mls @ 999 mls/hr IV .Q1H1M [facility] Stop: 06/25/22 13:30 Last Admin: 06/25/22 12:55 Dose: 999 mls/hr Levofloxacin (Levaquin) 500 mg in 100 mls @ 100 mls/hr IV ONCE ONE Stop: 06/25/22 13:54 Lactated Ringer's (Lr) 1,000 mls @ 150 mls/hr IVCONT .Q6H40M [facility] Pharmacy Consult (Consult Rx Perform Med Rec) 1 each MISCELLANE ONCE PRN PRN Reason: Consult order Home Medications Medication Instructions Recorded Confirmed Last Taken Type cholecalciferol (vitamin D3) 50 50 mcg PO BEDTIME 06/25/22 06/25/22 06/23/22 History mcg (2,000 unit) capsule cyclosporine 0.05 % eye drops in a 1 drp ophthalmic (eye) BID 06/25/22 06/25/22 06/23/22 History dropperette (Restasis) ferrous sulfate 325 mg (65 mg 325 mg PO BEDTIME 06/25/22 06/25/22 06/23/22 History iron) tablet folic acid 1 mg tablet 1 tab PO DAILY 06/25/22 Unknown History levothyroxine 112 mcg tablet 1 tab PO DAILY 06/25/22 Unknown History methotrexate sodium 2.5 mg tablet 8 tab PO QWEEK 06/25/22 Unknown History nabumetone 750 mg tablet 1 tab PO BID 06/25/22 Unknown History secukinumab 150 mg/mL subcutaneous 2 syringe subcut Q4W 06/25/22 Unknown History pen injector (Cosentyx Pen 300 mg/2 Pens () Physical Exam Vital Signs: Vital Signs: Last Vital Signs Temp 97 F 06/25/22 11:33 Pulse 88 06/25/22 11:33 Resp 19 06/25/22 11:33 BP 146/67 H 06/25/22 11:33 Pulse Ox 99 06/25/22 11:33 O2 Del Method 06/25/22 11:33 BMI result Body Mass Index 32.1 Const: General: cooperative, healthy appearing and no acute distress Orientation/consciousness: patient oriented x3 HEENT: Head: Yes normal to inspection, Yes normocephalic and Yes atraumatic Eyes: Conjunctivae: conjunctivae normal Neck: Neck: Yes normal visual inspection and Yes trachea midline Chest: Chest palpation & inspection: normal inspection of the chest Resp: Effort & Inspection: normal respiratory effort Cardio: Rate: regular rate GI: Inspection: Yes normal to inspection Palpation (GI): Soft to palpation : General: Yes CVA tenderness on the left Back/Spine/Pelvis: Back: CVA tenderness Skin: General skin exam: no rashes or lesions noted Neuro: General: patient oriented x3 Extrem: General: No edema Psych: Appearance: grossly normal Results Labs Result diagrams: 06/25/22 11:44 06/25/22 11:44 Labs: Abnormal lab results 06/25/22 06/25/22 06/25/22 Range/Units 11:44 11:44 11:44 WBC 24.6 H (4.8-10.8) X10*3/uL Plt Count 413 H (160-400) X10*3/uL MPV 9.0 L (9.4-12.3) fL Immature Gran % (Auto) 0.8 H (0.0-0.4) % Neut % (Auto) 85.5 H (45-73) % Lymph % (Auto) 6.8 L (20-40) % [place] # (Auto) 1.6 H (0.1-1.2) X10*3/uL Abs Immat Gran (auto) 0.20 H (0.00-0.03) X10*3/uL Absolute Neuts (auto) 21.0 H (2.0-8.3) x10*3/uL BUN 24 H (9-16) mg/dL Urine Blood Large (3+) H (Negative) Ur Leukocyte Esterase Small (1+) H (Negative) Urine RBC >20 H (0-2) /HPF Urine WBC 21-50 H (0-5) /HPF Short CBC 06/25/22 Range/Units 11:44 WBC 24.6 H (4.8-10.8) X10*3/uL Hgb 13.8 (12.0-16.0) g/dl Hct 41.5 (37.0-47.0) % Plt Count 413 H (160-400) X10*3/uL BMP 06/25/22 11:44 Sodium 142 Potassium 4.2 Chloride 106 Carbon Dioxide 24 BUN 24 H Creatinine 1.10 Calcium 9.6 Urine 06/25/22 06/25/22 Range/Units 11:44 11:44 Urine Color Yellow Urine Appearance Cloudy Urine pH 5.5 (5.0-9.0) Ur Specific [place] 1.025 (1.005-1.025) Urine Protein Trace (Neg-Trace) mg/dL Urine Glucose (UA) Negative (Negative) mg/dL Urine Test NEGATIVE (NEGATIVE) Imaging Abdomen CT scan report/results: report reviewed and image reviewed Additional studies: Date of Service: 06/23/22 EXAMINATION: CT ABDOMEN AND PELVIS WITHOUT CONTRAST? CLINICAL INFORMATION: Flank pain? COMPARISON: None? FINDINGS: LUNG BASES: Solid right lower lobe pulmonary micronodule, 4:1.? ABDOMINAL AND PELVIC WALL:? Unremarkable.? LIVER AND BILIARY TREE: Unremarkable.? GALLBLADDER: Unremarkable.? PANCREAS: Unremarkable.? SPLEEN: Unremarkable.? ADRENAL GLANDS: Unremarkable.? KIDNEYS AND URETERS: A punctate obstructing stone is noted in the distal left ureter, 4:539, with with question of possible additional stone slightly distally 4:574 which results in mild proximal hydroureteronephrosis. Few additional punctate nonobstructing bilateral renal stones are also seen. Left renal hypodensity too small to characterize. GASTROINTESTINAL TRACT: Colonic diverticulosis without evidence of diverticulitis.? Normal appendix. VASCULAR: Retroaortic left renal vein.? LYMPH NODES/PERITONEUM: No lymphadenopathy. FREE FLUID: None. BLADDER: Unremarkable.? PELVIC VISCERA: Sclerosis of the sacroiliac joints which could be seen in the setting of osteitis condensans ilii. IMPRESSION: *? A punctate obstructing stone is noted in the distal left ureter, with question of possible additional stone slightly distally which results in mild proximal hydroureteronephrosis. Few additional punctate nonobstructing bilateral renal stones are also seen. Assessment and Plan (1) Pyelonephritis: Status: Acute (2) Hydronephrosis: Status: Acute (3) Ureteral stone: Status: Acute (4) Nephrolithiasis: Status: Acute Plan IVF hydration LR 150 cc/h IV Levaquin 500mg q 24 h, pending urine c/s flomax 0.4 mg q 24 h Left punctate stones will manage nonsurgically at this time I Will follow Procedures Date of Service Date of Service: 06/25/22
[2022-06-25] MEDS: ondansetron HCL 4 MG/2 ML VIAL IVPUSH ×2 (13:26→18:37)
[2022-06-25 13:28] LABS: Alanine Aminotransferase 17 U/L (0-31); Albumin Level 4.5 g/dL (3.5-5.0); Alkaline Phosphatase 73 U/L (39-117); Aspartate Amino Transferase 17 U/L (5-31); Bilirubin Direct 0.3 mg/dL (0.0-0.5); Bilirubin Total 0.3 mg/dL (0.0-1.0); Total Protein 7.7 g/dL (6.5-8.0)
[2022-06-25] MEDS: Ketorolac Tromethamine 30 MG/ML VIAL IVPUSH (13:28)
[2022-06-25] MEDS: levoFLOXacin/D5W 500 MG/100 ML PIGGYBACK 100 MG IV (13:33)
--- NOTE | 2022-06-25 13:53 | PHA.MEDREC ---
Pharmacy Consult ? Medication Reconciliation Pharmacy has completed the medication reconciliation.Patient reviewed medication list with me and she was able to confirm medications based on claim history and over the counter medications also. Due to vomiting this morning she was not able to take most of her medications this morning but did take some regular meds yesterday.
[2022-06-25] MEDS: Tamsulosin HCL 0.4 MG CAPSULE PO (13:54)
[2022-06-25 14:23] LABS: COVID-19 Test Negative (Negative)
--- OUTSIDE RECORDS SUMMARY | 2022-06-25 15:34 | XMS_ITS ---
:1970 Author Care Team Providers Name Role Phone Noemy Del Cid Mehdi Primary Care Provider Unavailable Allergies Code Code System Name Reaction Severity Status Onset 093082 RxNorm Humira Rash ? Active ? Penicillin [...] Surgery Information not regina ilable 06/30/2019 Electrocardiogram [facility] [address],[facility] [place] [phone] (Work Place) 06/30/2019 Exercise Stress Test [facility] (Shaista ging) [place] [address] (Work Place) 07/16/2019 MAMMO, Diagnostic, Digital, Unilateral [facility] (Imaging) [place] [address] (Work Place) 05/24/2020 US, Thyroid [facility]Scheduling Dept[facility] [address] [place], [place] [address] (Work Place) Results Lab Results Date Name Specimen Result Interpretation Description Value Range Status Address ? 07/27/2021 TSH + Free T4, Serum ? No observation ? ? ? [place] recorded. [facility] (Medical Records): [address] [place] [address] 05/24/2020 TSH + Free T4, Serum ? No observation ? ? ? [place] recorded. [facility] Outpatient : [address] [place] [address] 07/09/2019 Vitamin D, ? No observation ? ? ? [place] 25-Hydroxy, Total, recorded. [facility] Serum Laboratory : [address] [place] [address] 07/09/2019 TSH + Free T4, Serum ? No observation ? ? ? [place] recorded. [facility] : [address] [place] [address] 07/09/2019 Lipids, Total, Serum ? No observation ? ? ? [place] recorded. [facility] : [address] [place] [address] 10/13/2018 Vitamin D, 25-Hydroxy ? No observation ? ? ? [place] + 1,25-Dihydroxy, recorded. [facility] : [address] [place] [address] 10/13/2018 Iron + TIBC + ? No observation ? ? ? [place] Ferritin, Serum recorded. [facility] : [address] [place] [address] 04/08/2018 Vitamin D, ? No observation ? ? ? [place] 25-Hydroxy, Total, recorded. [facility] : [address] [place] [address] 04/08/2018 Iron + TIBC + ? No observation ? ? ? [place] Ferritin, Serum recorded. [facility] : [address] [place] [address] 04/08/2018 TSH + Free T4, Serum ? No observation ? ? ? [place] recorded. [facility] : [address] [place] [address], [place] ? Electrocardiogram ? Rate & Rhythm 59 sinus ? ? [facility] Internal Medicine: [address] ,[place] ? ? ? Qrs 98 ms ? ? [facility] Internal Medicine: [address] ,[place], [place] ? ? ? [place] Interval 134 ms ? ? [facility] Internal Medicine: [address] ,[place], [place] ? ? ? QRS Duration 98 ms ? ? [facility] Internal Medicine: [address] ,[place], [place] ? ? ? [place] Interval 420 ? ? [facility] Internal Medicine: [address] ,[place], [place] Past Encounters None recorded. Social History Tobacco Smoking Status Never Smoker Vaccine List Vaccine Type COVID-19, mRNA, LNP-S, PF, 30 mcg/0.3 mL dose ([employer]) 10/06/2020 11/06/2020 Tdap 0.5 mL 0.5 mL [...]
[2022-06-25] MEDS: Lactated Ringers 1,000 ML 150 ML IVCONT ×2 (15:47→20:12)
[2022-06-25] MEDS: 0.9 % Sodium Chloride Flush 3 ML SYRINGE IVFLUSH (15:47)
[2022-06-25 16:35] VITALS: BP 116/55; PULSE 67; RESP 14; TEMP 37.1; O2SAT 98
--- NOTE | 2022-06-25 17:31 | PM.IMHP ---
History of Present Illness Date of Service: 06/25/22 Chief Complaint: left flank pain 51-year-old female with history of psoriatic arthritis, Bradley's disease presents with left flank pain, nausea, vomiting, suprapubic discomfort, urinary urgency and voiding small amounts.? Patient was seen here June 23.? imaging left punctate obstructing stone in the distal left ureter with question of slightly distal stone with mild proximal hydroureteronephrosis. patient has elevated WBC count of 24.6k, also had nausea vomiting, abdominal pain is still not improving with pain medications, unable to tolerate p.o. currently. she says that it is her 1st episode of renal colic, her brother has renal stone issues, she says pain in the left flank area going to the back, 7/10, sharp, does not get better with any position. Denies any new complaint of chest pain or shortness of breath or chills or nausea or vomiting Denies any cough Denies any weakness or numbness. Lab imaging reviewed: BUN is 24, creatinine is 1.[address] scan was done yesterday: findings as above in HPI. UA abnormal: has pyuria blood cultures and urine cultures sent Patient was given IV pain medication, hydration, iv antibiotics,Flomax and antiemetics: Still has significant pain- ED physician discussed the case with Urology recommended to admit and observe for renal colic and possible UTI . social history: Lives with family, denies any alcohol, smoking or recreation drug use. Review of Systems Review of Systems: as above. PMFSH Pertinent family history: has family history of nephrolithiasis(brother) Social History (Updated 06/25/22 @ 17:52 by Ewa Rhodes MD) Household Members: Family Alcohol intake: never Patient Tobacco Use Status: Never used Tobacco Use of substances other than those prescribed or required for medical reasons: No Advance Directives: No Advance Directives Information Provided: Yes Meds Allergies Allergy/AdvReac Type Severity Reaction Status Date / Time adalimumab [Humira] Allergy Unknown Verified 07/20/19 00:00 penicillin V Allergy Unknown hives, Verified 11/19/17 00:00 throat swelling Penicillins [PENICILLINS] Allergy Unknown HIVES, Unverified 05/11/20 14:51 DIFF BREATHING penicillin Allergy Unknown Uncoded 07/20/19 00:00 Active Medications: Current Medications Ferrous Sulfate (Ferrous Sulfate 324 Mg Tablet.) 324 mg PO BEDTIME [facility] Folic Acid (Folic Acid 1 Mg Tablet) 1 mg PO DAILY@0630 [facility] Lactated Ringer's (Lr) 1,000 mls @ 150 mls/hr IVCONT .Q6H40M [facility] Last Admin: 06/25/22 15:47 Dose: 150 mls/hr Levothyroxine Sodium (Levothyroxine Sodium 112 Mcg Tablet) 112 mcg PO DAILY@0630 [facility] Methotrexate (Methotrexate Sodium 2.5 Mg Tablet) 20 mg PO QWEEK [facility] Non-Formulary Medication (Cyclosporine [Restasis]) 1 drop EYE-BOTH BID [facility] Non-Formulary Medication (Nabumetone) 1 tab PO BID [facility] Non-Formulary Medication (Secukinumab [Cosentyx Pen (2 Pens)]) 2 syr SUBCUT Q28D [facility] Pharmacy Consult (Consult Rx Perform Med Rec) 1 each MISCELLANE ONCE PRN PRN Reason: Consult order Sodium Chloride (0.9 % Sodium Chloride Flush 3 Ml Syringe) 3 ml IVFLUSH QSHIFT [facility] Last Admin: 06/25/22 15:47 Dose: 3 ml Tamsulosin HCl (Tamsulosin Hcl 0.4 Mg Capsule) 0.4 mg PO DAILY [facility] Vitamin D (Cholecalciferol (Vitamin D3) 25 Mcg Tablet) 50 mcg PO BEDTIME [facility] Home Medications Medication Instructions Recorded Confirmed Last Taken Type cholecalciferol (vitamin D3) 50 50 mcg PO BEDTIME 06/25/22 06/25/22 06/23/22 History mcg (2,000 unit) capsule cyclosporine 0.05 % eye drops in a 1 drp ophthalmic (eye) BID 06/25/22 06/25/22 06/23/22 History dropperette (Restasis) ferrous sulfate 325 mg (65 mg 325 mg PO BEDTIME 06/25/22 06/25/22 06/23/22 History iron) tablet folic acid 1 mg tablet 1 tab PO DAILY@0630 06/25/22 06/25/22 06/24/22 History levothyroxine 112 mcg tablet 1 tab PO DAILY@0630 06/25/22 06/25/22 06/24/22 History methotrexate sodium 2.5 mg tablet 8 tab PO QWEEK 06/25/22 06/25/22 06/20/22 History nabumetone 750 mg tablet 1 tab PO BID 06/25/22 06/25/22 06/24/22 History secukinumab 150 mg/mL subcutaneous 2 syringe subcut Q4W 06/25/22 06/25/22 06/21/22 History pen injector (Cosentyx Pen 300 mg/2 Pens () Physical Exam Vital Signs and Narrative: Vital Signs: Last Vital Signs Temp 98.7 F 06/25/22 16:35 Pulse 67 06/25/22 16:35 Resp 14 06/25/22 16:35 BP 116/55 L 06/25/22 16:35 Pulse Ox 98 06/25/22 16:35 O2 Del Method 06/25/22 16:35 BMI result Body Mass Index 32.1 Appearance: Alert.? Oriented X3.? not in distress.? Eyes: Pupils equal, round and reactive to light.? Sclera nonicteric.? ENT: Pharynx normal.? Moist mucous membranes. cvs: rrr, [id number] . res: clear to auscultation ,no rhonchii or wheezing abd: no rebound or guarding ,left flank pain /cva left tenderness , bs present. ext pulses present , no cyanosis . neuro: axo3 , nonfocal. Results Labs CBC and Chem 7: 06/25/22 11:44 06/25/22 11:44 Labs: Laboratory Results - last 24 hr 06/25/22 06/25/22 06/25/22 11:44 11:44 11:44 MCV 93.5 MCH 31.1 MCHC 33.3 RDW 13.6 Plt Count 413 H MPV 9.0 L Immature Gran % (Auto) 0.8 H Neut % (Auto) 85.5 H Lymph % (Auto) 6.8 L [place] % (Auto) 6.6 Eos % (Auto) 0.1 Baso % (Auto) 0.2 Lymph # (Auto) 1.7 [place] # (Auto) 1.6 H Eos # (Auto) 0.0 Baso # (Auto) 0.0 Abs Immat Gran (auto) 0.20 H Absolute Neuts (auto) 21.0 H Absolute Nucleated RBC 0.000 Nucleated RBC % (auto) 0.0 Smear Tech's Comments VERIFIED Anion Gap 16 Estim Creat Clear Calc 57.5 Estimated GFR 53 Random Glucose 109 Lactic Acid Calcium 9.6 Total Bilirubin 0.3 Direct Bilirubin 0.3 AST 17 ALT 17 Alkaline Phosphatase 73 Total Protein 7.7 Albumin 4.5 Urine Color Yellow Urine Appearance Cloudy Urine pH 5.5 Ur Specific [place] 1.025 Urine Protein Trace Urine Glucose (UA) Negative Urine Ketones Trace Urine Blood Large (3+) H Urine Nitrite Negative Ur Leukocyte Esterase Small (1+) H Urine RBC >20 H Urine WBC 21-50 H Ur Squamous Epith Cells 6-10 Urine Bacteria None Seen Hyaline Casts 3-5 Urine Test COVID-19 ([facility]IL[facility]) COVID-19 Clin Com 06/25/22 06/25/22 06/25/22 11:44 12:41 14:00 MCV MCH MCHC RDW Plt Count MPV Immature Gran % (Auto) Neut % (Auto) Lymph % (Auto) [place] % (Auto) Eos % (Auto) Baso % (Auto) Lymph # (Auto) [place] # (Auto) Eos # (Auto) Baso # (Auto) Abs Immat Gran (auto) Absolute Neuts (auto) Absolute Nucleated RBC Nucleated RBC % (auto) Smear Tech's Comments Anion Gap Estim Creat Clear Calc Estimated GFR Random Glucose Lactic Acid 1.6 Calcium Total Bilirubin Direct Bilirubin AST ALT Alkaline Phosphatase Total Protein Albumin Urine Color Urine Appearance Urine pH Ur Specific [place] Urine Protein Urine Glucose (UA) Urine Ketones Urine Blood Urine Nitrite Ur Leukocyte Esterase Urine RBC Urine WBC Ur Squamous Epith Cells Urine Bacteria Hyaline Casts Urine Test NEGATIVE COVID-19 ([facility]ILA) Negative COVID-19 Clin Com See Note Assessment and Plan (1) Nephrolithiasis: Status: Acute (2) Pyelonephritis: Status: Acute (3) UTI (urinary tract infection): Status: Acute (4) Ureteral stone: Status: Acute (5) Hydronephrosis: Status: Acute (6) MILLIE (acute kidney injury): Status: Acute (7) Nausea & vomiting: Status: Acute Plan 51-year-old female with history of psoriatic arthritis, Bradley's disease presents Renal colic, hydronephrosis, mild MILLIE, possible UTI. 1. MILLIE and Obstructive uropathy secondary to renal colic , possible UTI. has hydronephrosis on the left side. Continue hydration, IV morphine, Flomax, IV antibiotics await blood and urine culture if patient condition does not improve then may need repeat imaging. 2. Nausea vomiting:Possible secondary to above. Continue antiemetic, pain management and hydration. 3. 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 4. Psoriatic arthritis: Continue home medications. DVT prophylaxis: subQ Lovenox patient will benefit from inpatient 2midnight stays - due to MILLIE, UTI/obstructive uropathy may need supportive care as well as IV pain medication as well as IV antibiotics and possible urological procedure if does not improve. Quality Stroke Does the patient have a stroke diagnosis?: No VTE Prior VTE?: No VTE Risk Level:: Medical - low VTE Device Contraindication: N/A - Device Ordered VTE Drug Contraindication: N/A - Med Ordered
[2022-06-25] MEDS: Enoxaparin Sodium 40 MG/0.4 ML SYRINGE SUBCUT (18:36)
[2022-06-25] MEDS: Morphine Sulfate 2 MG/ML CARTRIDGE IVPUSH ×2 (18:36→23:20)
[2022-06-25 20:13] VITALS: BP 103/44; PULSE 62; RESP 16; TEMP 37.1; O2SAT 95
[2022-06-25] MEDS: Ferrous Sulfate 324 MG TABLET.DR PO (20:14)
[2022-06-25] MEDS: Cholecalciferol (Vitamin D3) 25 MCG TABLET 50 MCG PO (20:14)
--- NOTE | 2022-06-25 21:01 | PC.NURSE ---
Addendum entered by Carolin Becker RN 06/26/22 07:05: report given to FERN Taylor Original Note: report received from FERN Montoya pt is alert and oriented resting in bed no signs of acute distress notice breathing equally unlabored
--- NOTE | 2022-06-25 21:01 | PC.NURSE ---
Report given to FERN Coe - pt moved to overflow #2. message sent to Elinor Bhatti MD re:diet order NPO vs. Reg.Diet waiting for clarification
[2022-06-25 21:07] VITALS: BP 115/57; PULSE 63; RESP 16; TEMP 36.8; O2SAT 96
[2022-06-26] VITALS (15 sets, daily range): BP systolic 99–145; BP diastolic 44–67; PULSE 50–65; RESP 14–24; TEMP 36.1–37.1; O2SAT 94–98; BMI 32.1
[2022-06-26] MEDS: Lactated Ringers 1,000 ML 150 ML IVCONT ×4 (02:32→22:49)
[2022-06-26] MEDS: Morphine Sulfate 2 MG/ML CARTRIDGE IVPUSH (04:24)
[2022-06-26] MEDS: Levothyroxine Sodium 112 MCG TABLET PO (05:30)
[2022-06-26] MEDS: Folic Acid 1 MG TABLET PO (05:30)
[2022-06-26] MEDS: ondansetron HCL 4 MG/2 ML VIAL IVPUSH ×2 (05:30→09:39)
[2022-06-26] MEDS: 0.9 % Sodium Chloride Flush 3 ML SYRINGE IVFLUSH ×2 (07:59→16:46)
[2022-06-26] MEDS: Tamsulosin HCL 0.4 MG CAPSULE PO (08:00)
[2022-06-26 08:06] LABS: Glucose, Whole Blood 94 mg/dL (60-115)
--- NOTE | 2022-06-26 08:16 | P.PNUR_ITS ---
Subjective Subjective Date of Service: 06/26/22 Interval history: 51-year-old female with history of psoriatic arthritis, Bradley's disease presents with left flank pain, nausea, vomiting, suprapubic discomfort, urinary urgency and voiding small amounts.? The patient states this is her first episode with kidney stone issues.? The Patient was seen here June 23.? Diagnosed with left punctate obstructing stone in the distal left ureter with question of slightly more distal stone with mild proximal hydroureteronephrosis.? She was sent home with PO morphine instructions on urology fu. She returned 06/25/22 with continued pain now with vomiting and? some irritative urinary symptoms as well.? No fevers or chills. She denies recurrent UTI's. Pertinent Findings: CT Abd/pelvis 06/23/22--KIDNEYS AND URETERS: A punctate obstructing stone is noted in the distal left ureter, 4:539, with with question of possible additional stone slightly distally 4:574 which results in mild proximal hydroureteronephrosis. Few additional punctate nonobstructing bilateral renal stones are also seen. Left renal hypodensity too small to characterize. 06/26/22-- pain persistent, labs pending, plan cysto left ureteral stent today Physical Exam Vital Signs: Vital Signs: Last Vital Signs Temp 98.1 F 06/26/22 05:15 Pulse 58 06/26/22 07:55 Resp 24 H 06/26/22 07:55 BP 145/61 H 06/26/22 07:55 Pulse Ox 97 06/26/22 07:55 O2 Del Method 06/26/22 07:55 BMI result Body Mass Index 32.1 Const: General: cooperative, healthy appearing and no acute distress Orientation/consciousness: patient oriented x3 HEENT: Head: Yes normal to inspection, Yes normocephalic and Yes atraumatic Eyes: Conjunctivae: conjunctivae normal Neck: Neck: Yes normal visual inspection and Yes trachea midline Chest: Chest palpation & inspection: normal inspection of the chest Resp: Effort & Inspection: normal respiratory effort Cardio: Rate: regular rate GI: Inspection: Yes normal to inspection Palpation (GI): Soft to palpation : General: Yes CVA tenderness on the left Back/Spine/Pelvis: Back: CVA tenderness Skin: General skin exam: no rashes or lesions noted Neuro: General: patient oriented x3 Extrem: General: No edema Psych: Appearance: grossly normal Urology Results Labs CBC & Chem 7: 06/25/22 11:44 06/25/22 11:44 Labs: Laboratory Results - last 24 hr 06/25/22 06/25/22 06/25/22 11:44 11:44 11:44 WBC 24.6 H RBC 4.44 Hgb 13.8 Hct 41.5 MCV 93.5 MCH 31.1 MCHC 33.3 RDW 13.6 Plt Count 413 H MPV 9.0 L Immature Gran % (Auto) 0.8 H Neut % (Auto) 85.5 H Lymph % (Auto) 6.8 L [place] % (Auto) 6.6 Eos % (Auto) 0.1 Baso % (Auto) 0.2 Lymph # (Auto) 1.7 [place] # (Auto) 1.6 H Eos # (Auto) 0.0 Baso # (Auto) 0.0 Abs Immat Gran (auto) 0.20 H Absolute Neuts (auto) 21.0 H Absolute Nucleated RBC 0.000 Nucleated RBC % (auto) 0.0 Smear Tech's Comments VERIFIED Sodium 142 Potassium 4.2 Chloride 106 Carbon Dioxide 24 Anion Gap 16 BUN 24 H Creatinine 1.10 Estim Creat Clear Calc 57.5 Estimated GFR 53 POC Glucose Random Glucose 109 Lactic Acid Calcium 9.6 Total Bilirubin 0.3 Direct Bilirubin 0.3 AST 17 ALT 17 Alkaline Phosphatase 73 Total Protein 7.7 Albumin 4.5 Urine Color Yellow Urine Appearance Cloudy Urine pH 5.5 Ur Specific [place] 1.025 Urine Protein Trace Urine Glucose (UA) Negative Urine Ketones Trace Urine Blood Large (3+) H Urine Nitrite Negative Ur Leukocyte Esterase Small (1+) H Urine RBC >20 H Urine WBC 21-50 H Ur Squamous Epith Cells 6-10 Urine Bacteria None Seen Hyaline Casts 3-5 Urine Test COVID-19 ([facility]ILA) COVID-19 Clin Com 06/25/22 06/25/22 06/25/22 11:44 12:41 14:00 WBC RBC Hgb Hct MCV MCH MCHC RDW Plt Count MPV Immature Gran % (Auto) Neut % (Auto) Lymph % (Auto) [place] % (Auto) Eos % (Auto) Baso % (Auto) Lymph # (Auto) [place] # (Auto) Eos # (Auto) Baso # (Auto) Abs Immat Gran (auto) Absolute Neuts (auto) Absolute Nucleated RBC Nucleated RBC % (auto) Smear Tech's Comments Sodium Potassium Chloride Carbon Dioxide Anion Gap BUN Creatinine Estim Creat Clear Calc Estimated GFR POC Glucose Random Glucose Lactic Acid 1.6 Calcium Total Bilirubin Direct Bilirubin AST ALT Alkaline Phosphatase Total Protein Albumin Urine Color Urine Appearance Urine pH Ur Specific [place] Urine Protein Urine Glucose (UA) Urine Ketones Urine Blood Urine Nitrite Ur Leukocyte Esterase Urine RBC Urine WBC Ur Squamous Epith Cells Urine Bacteria Hyaline Casts Urine Test NEGATIVE COVID-19 ([facility]IL[facility]) Negative COVID-19 Clin Com See Note 06/26/22 08:01 WBC RBC Hgb Hct MCV MCH MCHC RDW Plt Count MPV Immature Gran % (Auto) Neut % (Auto) Lymph % (Auto) [place] % (Auto) Eos % (Auto) Baso % (Auto) Lymph # (Auto) [place] # (Auto) Eos # (Auto) Baso # (Auto) Abs Immat Gran (auto) Absolute Neuts (auto) Absolute Nucleated RBC Nucleated RBC % (auto) Smear Tech's Comments Sodium Potassium Chloride Carbon Dioxide Anion Gap BUN Creatinine Estim Creat Clear Calc Estimated GFR POC Glucose 94 Random Glucose Lactic Acid Calcium Total Bilirubin Direct Bilirubin AST ALT Alkaline Phosphatase Total Protein Albumin Urine Color Urine Appearance Urine pH Ur Specific [place] Urine Protein Urine Glucose (UA) Urine Ketones Urine Blood Urine Nitrite Ur Leukocyte Esterase Urine RBC Urine WBC Ur Squamous Epith Cells Urine Bacteria Hyaline Casts Urine Test COVID-19 ([facility]) COVID-19 Clin Com Progress Note: A&P Assessment and plan (1) Nephrolithiasis: Status: Acute (2) Ureteral stone: Status: Acute (3) Hydronephrosis: Status: Acute (4) Pyelonephritis: Status: Acute Plan Cysto Left ureteral stent. Discussed risks to include but not limited to, blood in the urine, burning with urination, urgency. The patient had an opportunity to ask questions regarding treatment plan. All questions were answered. Imaging studies, laboratory studies and physical exam results were discussed and reviewe d in detail. No major barriers to understanding were identified. The patient expressed understanding and agreement with the above treatment plan. Time Spent With Patient Time: Total time spent is greater than 50% in coordination of care (as documented) at patient's floor/unit and/or counseling patient: Progress Note: Quality Stroke Does the patient have a stroke diagnosis?: No
[2022-06-26] MEDS: Morphine Sulfate 4 MG/ML CARTRIDGE IVPUSH (09:39)
[2022-06-26 10:04] LABS: MANUAL DIFF FLAG NO
[2022-06-26 10:06] LABS: Basophils Percent Auto 0.2 % (0-2); Eosinophils Absolute Auto 0.1 X10*3/uL (0.0-0.4); Eosinophils Percent Auto 0.6 % (0-4); Hematocrit 35.8 % (37.0-47.0); Hemoglobin 11.9 g/dl (12.0-16.0); Imm Gran Abs Auto 0.23 X10*3/uL (0.00-0.03); Imm Gran Pct Auto 1.4 % (0.0-0.4); Lymphocytes Percent Auto 12.3 % (20-40); Mean Corpuscular HGB Conc 33.2 g/dl (31.0-35.0); Mean Corpuscular Hemoglobin 31.4 pg (27.0-33.0); Mean Corpuscular Volume 94.5 fL (80.0-98.0); Mean Platelet Volume 9.2 fL (9.4-12.3); Monocytes Absolute Auto 0.8 X10*3/uL (0.1-1.2); Monocytes Percent Auto 5.1 % (2-11); Neutrophils Absolute Auto 13.1 x10*3/uL (2.0-8.3); Neutrophils Percent Auto 80.4 % (45-73); Platelet Count 341 X10*3/uL (160-400); Red Blood Count 3.79 X10*6/uL (4.20-5.50); Red Cell Distribution Width 13.8 % (11.0-16.0); White Blood Count 16.2 X10*3/uL (4.8-10.8)
[2022-06-26 10:07] LABS: Hematocrit 35.3 % (37.0-47.0); Hemoglobin 11.8 g/dl (12.0-16.0); Mean Corpuscular HGB Conc 33.4 g/dl (31.0-35.0); Mean Corpuscular Hemoglobin 31.4 pg (27.0-33.0); Mean Corpuscular Volume 93.9 fL (80.0-98.0); Mean Platelet Volume 9.2 fL (9.4-12.3); Platelet Count 339 X10*3/uL (160-400); Red Blood Count 3.76 X10*6/uL (4.20-5.50); Red Cell Distribution Width 13.6 % (11.0-16.0); White Blood Count 16.2 X10*3/uL (4.8-10.8)
--- NOTE | 2022-06-26 10:17 | PC.NURSE ---
medicated as ordered for pain x 2, morphine 2mg q4 h wasn't working well for her, changed to morphine 4mg q 3 h, also medicated w zofran for nausea, npo x 2 days, skin wpd, alert, speech clear, aware npo and of plan to go to or about 1130
[2022-06-26 10:52] LABS: Anion Gap 13 (12-20); Blood Urea Nitrogen 18 mg/dL (9-16); Calcium 8.7 mg/dL (8.4-10.2); Carbon Dioxide 26 mmol/L (22-29); Chloride 105 mmol/L (96-108); Creatinine Clr Calc Pharmacy 73.5; Estimated Glomerular Filt Rate > 60; Glucose Random 94 mg/dL (60-115); Potassium 3.8 mmol/L (3.3-5.1); Sodium 140 mmol/L (135-145)
--- NOTE | 2022-06-26 11:51 | MHC.SHP ---
Pre-Procedural Eval Section A Date of Service: 06/26/22 The patient is an INPATIENT: Yes Section B Chief Complaint: uti/ nephrolithasis Allergies: Allergies Allergy/AdvReac Type Severity Reaction Status Date / Time adalimumab [Humira] Allergy Unknown Shortness Verified 06/25/22 18:35 of Breath penicillin V Allergy Unknown hives, Verified 06/25/22 18:35 throat swelling Penicillins [PENICILLINS] Allergy Unknown HIVES, Verified 06/25/22 18:35 DIFF BREATHING penicillin Allergy Unknown Hives Uncoded 06/25/22 18:35 Plan I have reviewed the history and physical and performed a pertinent physical examination on my patient. No changes have occurred unless specified. Cystoscopy left ureteral stent insertion. Discussed risks to include but not limited to, blood in the urine, burning with urination, urgency.
--- NOTE | 2022-06-26 11:52 | P.CONAN_ITS ---
HPI - Anesthesia Eval Consult details Narrative: 51 yo female patient for cystoscopy, left ureteroscopy, retro, stent left ureter PMFSH Active Problems Active Problems: All Active Problems (Updated 06/25/22 @ 17:53 by Ewa Rhodes MD) Nausea & vomiting (Acute) MILLIE (acute kidney injury) (Acute) UTI (urinary tract infection) (Acute) Nephrolithiasis (Acute) Ureteral stone (Acute) Hydronephrosis (Acute) Pyelonephritis (Acute) Psoriatic arthritis. Cosentyx, methotrexate Family History Family history of problems with anesthesia: No Surgical History History of Problems with Anesthesia: Yes (Slow awakening, PONV with knee surgery) Social History Social History Household Members: Family Alcohol intake: never Patient Tobacco Use Status: Never used Tobacco Use of substances other than those prescribed or required for medical reasons: No Are you DNR?: No Advance Directives: No Advance Directives Information Provided: Yes Meds Allergies Allergy/AdvReac Type Severity Reaction Status Date / Time adalimumab [Humira] Allergy Unknown Shortness Verified 06/25/22 18:35 of Breath penicillin V Allergy Unknown hives, Verified 06/25/22 18:35 throat swelling Penicillins [PENICILLINS] Allergy Unknown HIVES, Verified 06/25/22 18:35 DIFF BREATHING penicillin Allergy Unknown Hives Uncoded 06/25/22 18:35 Active Medications: Current Medications Enoxaparin Sodium (Enoxaparin Sodium 40 Mg/0.4 Ml Syringe) 40 mg SUBCUT Q24H [facility] Last Admin: 06/25/22 18:36 Dose: 40 mg Ferrous Sulfate (Ferrous Sulfate 324 Mg Tablet.) 324 mg PO BEDTIME [facility] Last Admin: 06/25/22 20:14 Dose: 324 mg Folic Acid (Folic Acid 1 Mg Tablet) 1 mg PO DAILY@0630 [facility] Last Admin: 06/26/22 05:30 Dose: 1 mg Lactated Ringer's (Lr) 1,000 mls @ 150 mls/hr IVCONT .Q6H40M [facility] Last Admin: 06/26/22 08:01 Dose: 150 mls/hr Levofloxacin (Levaquin) 500 mg in 100 mls @ 100 mls/hr IV Q24H [facility] Levofloxacin (Levaquin) 500 mg in 100 mls @ 100 mls/hr IV ONCE ONE Stop: 06/26/22 12:49 Levothyroxine Sodium (Levothyroxine Sodium 112 Mcg Tablet) 112 mcg PO DAILY@0630 [facility] Last Admin: 06/26/22 05:30 Dose: 112 mcg Methotrexate (Methotrexate Sodium 2.5 Mg Tablet) 20 mg PO Th [facility] Morphine Sulfate (Morphine Sulfate 2 Mg/Ml Cartridge) 4 mg IVPUSH Q3H PRN; Protocol PRN Reason: Pain, Mild (Pain Scale 1-3) Non-Formulary Medication (Cyclosporine [Restasis]) 1 drop EYE-BOTH BID [facility] Non-Formulary Medication (Nabumetone) 1 tab PO BID [facility] Non-Formulary Medication (Secukinumab [Cosentyx Pen (2 Pens)]) 2 syr SUBCUT Q28D [facility] Ondansetron HCl (Ondansetron Hcl 4 Mg/2 Ml Vial) 4 mg IVPUSH Q4H PRN PRN Reason: Nausea and Vomiting Last Admin: 06/26/22 09:39 Dose: 4 mg Pharmacy Consult (Consult Rx Perform Med Rec) 1 each MISCELLANE ONCE PRN PRN Reason: Consult order Sodium Chloride (0.9 % Sodium Chloride Flush 3 Ml Syringe) 3 ml IVFLUSH QSHIFT [facility] Last Admin: 06/26/22 07:59 Dose: 3 ml Tamsulosin HCl (Tamsulosin Hcl 0.4 Mg Capsule) 0.4 mg PO DAILY [facility] Last Admin: 06/26/22 08:00 Dose: 0.4 mg Vitamin D (Cholecalciferol (Vitamin D3) 25 Mcg Tablet) 50 mcg PO BEDTIME [facility] Last Admin: 06/25/22 20:14 Dose: 50 mcg Home Medications Medication Instructions Recorded Confirmed Last Taken Type cholecalciferol (vitamin D3) 50 50 mcg PO BEDTIME 06/25/22 06/25/22 06/23/22 History mcg (2,000 unit) capsule cyclosporine 0.05 % eye drops in a 1 drp ophthalmic (eye) BID 06/25/22 06/25/22 06/23/22 History dropperette (Restasis) ferrous sulfate 325 mg (65 mg 325 mg PO BEDTIME 06/25/22 06/25/22 06/23/22 History iron) tablet folic acid 1 mg tablet 1 tab PO DAILY@0630 06/25/22 06/25/22 06/24/22 History levothyroxine 112 mcg tablet 1 tab PO DAILY@0630 06/25/22 06/25/22 06/24/22 History methotrexate sodium 2.5 mg tablet 8 tab PO QWEEK 06/25/22 06/25/22 06/20/22 History nabumetone 750 mg tablet 1 tab PO BID 06/25/22 06/25/22 06/24/22 History secukinumab 150 mg/mL subcutaneous 2 syringe subcut Q4W 06/25/22 06/25/2206/21 History pen injector (Cosentyx Pen 300 mg/2 Pens () Exam Exam Date and Time: June 26, 2022 1152 Height,Weight and Vital Signs: Height 5 ft 1 in Weight 77.111 kg Last Vital Signs Temp 98.3 F 06/26/22 11:26 Pulse 65 06/26/22 11:26 Resp 18 06/26/22 11:26 BP 99/44 L 06/26/22 11:26 Pulse Ox 95 06/26/22 11:26 O2 Del Method 06/26/22 11:26 Pertinent Lab Results Pertinent Lab Results: Laboratory Tests 06/25/22 06/25/22 06/25/22 11:44 11:44 11:44 WBC 24.6 H RBC 4.44 Hgb 13.8 Hct 41.5 MCV 93.5 MCH 31.1 MCHC 33.3 RDW 13.6 Plt Count 413 H MPV 9.0 L Immature Gran % (Auto) 0.8 H Neut % (Auto) 85.5 H Lymph % (Auto) 6.8 L [place] % (Auto) 6.6 Eos % (Auto) 0.1 Baso % (Auto) 0.2 Lymph # (Auto) 1.7 [place] # (Auto) 1.6 H Eos # (Auto) 0.0 Baso # (Auto) 0.0 Abs Immat Gran (auto) 0.20 H Absolute Neuts (auto) 21.0 H Absolute Nucleated RBC 0.000 Nucleated RBC % (auto) 0.0 Smear Tech's Comments VERIFIED Sodium 142 Potassium 4.2 Chloride 106 Carbon Dioxide 24 Anion Gap 16 BUN 24 H Creatinine 1.10 Estim Creat Clear Calc 57.5 Estimated GFR 53 POC Glucose Random Glucose 109 Lactic Acid Calcium 9.6 Total Bilirubin 0.3 Direct Bilirubin 0.3 AST 17 ALT 17 Alkaline Phosphatase 73 Total Protein 7.7 Albumin 4.5 Urine Color Yellow Urine Appearance Cloudy Urine pH 5.5 Ur Specific [place] 1.025 Urine Protein Trace Urine Glucose (UA) Negative Urine Ketones Trace Urine Blood Large (3+) H Urine Nitrite Negative Ur Leukocyte Esterase Small (1+) H Urine RBC >20 H Urine WBC 21-50 H Ur Squamous Epith Cells 6-10 Urine Bacteria None Seen Hyaline Casts 3-5 Urine Test COVID-19 (KAMILA) COVID-19 Clin Com 06/25/22 06/25/22 06/25/22 11:44 12:41 14:00 WBC RBC Hgb Hct MCV MCH MCHC RDW Plt Count MPV Immature Gran % (Auto) Neut % (Auto) Lymph % (Auto) [place] % (Auto) Eos % (Auto) Baso % (Auto) Lymph # (Auto) [place] # (Auto) Eos # (Auto) Baso # (Auto) Abs Immat Gran (auto) Absolute Neuts (auto) Absolute Nucleated RBC Nucleated RBC % (auto) Smear Tech's Comments Sodium Potassium Chloride Carbon Dioxide Anion Gap BUN Creatinine Estim Creat Clear Calc Estimated GFR POC Glucose Random Glucose Lactic Acid 1.6 Calcium Total Bilirubin Direct Bilirubin AST ALT Alkaline Phosphatase Total Protein Albumin Urine Color Urine Appearance Urine pH Ur Specific [place] Urine Protein Urine Glucose (UA) Urine Ketones Urine Blood Urine Nitrite Ur Leukocyte Esterase Urine RBC Urine WBC Ur Squamous Epith Cells Urine Bacteria Hyaline Casts Urine Test NEGATIVE COVID-19 (KAMILA) Negative COVID-19 Clin Com See Note 06/26/22 06/26/22 06/26/22 08:01 09:46 09:46 WBC 16.2 H RBC 3.76 L Hgb 11.8 L Hct 35.3 L MCV 93.9 MCH 31.4 MCHC 33.4 RDW 13.6 Plt Count 339 MPV 9.2 L Immature Gran % (Auto) Neut % (Auto) Lymph % (Auto) [place] % (Auto) Eos % (Auto) Baso % (Auto) Lymph # (Auto) [place] # (Auto) Eos # (Auto) Baso # (Auto) Abs Immat Gran (auto) Absolute Neuts (auto) Absolute Nucleated RBC 0.000 Nucleated RBC % (auto) 0.0 Smear Tech's Comments Sodium 140 Potassium 3.8 Chloride 105 Carbon Dioxide 26 Anion Gap 13 BUN 18 H Creatinine 0.86 Estim Creat Clear Calc 73.5 Estimated GFR > 60 POC Glucose 94 Random Glucose 94 Lactic Acid Calcium 8.7 D Total Bilirubin Direct Bilirubin AST ALT Alkaline Phosphatase Total Protein Albumin Urine Color Urine Appearance Urine pH Ur Specific [place] Urine Protein Urine Glucose (UA) Urine Ketones Urine Blood Urine Nitrite Ur Leukocyte Esterase Urine RBC Urine WBC Ur Squamous Epith Cells Urine Bacteria Hyaline Casts Urine Test COVID-19 ([facility]ILA) COVID-19 Clin Com 06/26/22 09:46 WBC 16.2 H RBC 3.79 L Hgb 11.9 L Hct 35.8 L MCV 94.5 MCH 31.4 MCHC 33.2 RDW 13.8 Plt Count 341 MPV 9.2 L Immature Gran % (Auto) 1.4 H Neut % (Auto) 80.4 H Lymph % (Auto) 12.3 L [place] % (Auto) 5.1 Eos % (Auto) 0.6 Baso % (Auto) 0.2 Lymph # (Auto) 2.0 [place] # (Auto) 0.8 Eos # (Auto) 0.1 Baso # (Auto) 0.0 Abs Immat Gran (auto) 0.23 H Absolute Neuts (auto) 13.1 H Absolute Nucleated RBC 0.000 Nucleated RBC % (auto) 0.0 Smear Tech's Comments Sodium Potassium Chloride Carbon Dioxide Anion Gap BUN Creatinine Estim Creat Clear Calc Estimated GFR POC Glucose Random Glucose Lactic Acid Calcium Total Bilirubin Direct Bilirubin AST ALT Alkaline Phosphatase Total Protein Albumin Urine Color Urine Appearance Urine pH Ur Specific [place] Urine Protein Urine Glucose (UA) Urine Ketones Urine Blood Urine Nitrite Ur Leukocyte Esterase Urine RBC Urine WBC Ur Squamous Epith Cells Urine Bacteria Hyaline Casts Urine Test COVID-19 (KAMILA) COVID-19 Clin Com Airway Mallampati Class: II TM Dist: >3cm Neck ROM: Full Loose/Missing/Broken Teeth: No (Denies broken or loose teeth) Heart: RRR Lungs: CTAB Assessment and Plan Assessment Anesthesia Assessment: Anesthesia Plan Discussed and Chart Reviewed Final Anesthetic Review Family History of Problems with Anesthesia: No History of Problems with Anesthesia: Yes (Slow awakening, PONV with knee surgery) ASA Class: II Final Preanesthetic Review: No Changes in Pt Med Stat, Meds/Allgs Chart Reviewed, Consent Obtained/Reviewed and Anes Risks/Benef Reviewed Patient Risk: Intermediate Procedure Risk: Low Assessment/Block/Sedation in SS: Assess/Block/Sedation-SS Anesthetic Plan Anesthetic Plan: GA Disposition: Standard PACU
--- NOTE | 2022-06-26 13:40 | W.PM.OPN ---
Operative Note Operative Note Date of Service: 06/26/22 Narrative: PreOperative Diagnosis:?? Left pyelonephritis, Left hydronephrosis, ureteral stone Post Operative Diagnosis:?? ? Left pyelonephritis, Left hydronephrosis, ureteral stone Procedure: - cystoscopy, left retrograde left ureteral stent placement 6 fr by 24 cm Surgeon:?Dr Hernando Davis Anesthesia:? 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 Pertinent Findings: CT Abd/pelvis 06/23/22--KIDNEYS AND URETERS: A punctate obstructing stone is noted in the distal left ureter, with question of possible additional stone slightly distally which results in mild proximal hydroureteronephrosis. Few additional punctate nonobstructing bilateral renal stones are also seen. Procedure: After informed consent was verified the patient was brought to the operating placed on the OR table in supine position.? General Anesthesia was administered per protocol.? The patient was placed in lithotomy position, prepped and draped in the usual sterile fashion.? Safety pause time-out and side of surgery confirmed.? Antibiotics confirmed. A 22 Citizen [place] cystoscope was inserted transurethrally, The bladder was visualized.? Both ureteric orifices were in normal position. The? left ureteric orifice was noted to be edematous. The left ureteral orifice was cannulated? and a retrograde examination was performed, a filling defect was noted distally consistent with a stone and dilatation proximally. A hydrophilic guidewire was placed up to the level of the renal pelvis under fluoroscopy. A? 6 Citizen [place] by 24 length stent was placed into the ureter and renal pelvis under a combination of fluoroscopy and direct visualization. The bladder was emptied.? The rigid cystoscope was removed. ? 2 % lidocaine jelly was passed transurethrally into the bladder. The patient tolerated the procedure well and was brought to the recovery room in stable condition. Complications: None Drains: Ureteral stent as dictated above
--- NOTE | 2022-06-26 13:46 | MHC.CM.PN ---
Patient is in the OR; CM met with Patient's /Peter at bedside and addressed WEIR with him, providing him with the original and a copy will be placed on the chart. Patient lives in a house with her and Son and her Mother and she is functionally independent and working. Home, self care is the goal and CM has initiated and will follow for dc planning. PCP is Dr. Ton Robert and Patient has received [employer] vax x3.
--- NOTE | 2022-06-26 15:10 | HO.PM.IMPN ---
Subjective Subjective Date of Service: 06/26/22 Interval History: left flank pain Review of Systems still has similar abdominal pain and feeling nauseated. no fever or sob. Physical Exam Vital Signs: Vital Signs: Last Vital Signs Temp 97 F 06/26/22 14:27 Pulse 59 06/26/22 14:27 Resp 16 06/26/22 14:27 BP 109/55 L 06/26/22 14:27 Pulse Ox 95 06/26/22 14:27 O2 Del Method 06/26/22 14:27 O2 Flow Rate 4 06/26/22 12:57 BMI result Body Mass Index 32.1 ?Appearance: Alert.? Oriented X3.? not in distress.? cvs: rrr, [id number] . res: clear to auscultation ,no rhonchii or wheezing abd: no rebound or guarding ,left flank pain /cva left tenderness , bs present. ext pulses present , no cyanosis . neuro: axo3 , nonfocal. Objective Data Active Medications Acetaminophen (Acetaminophen 325 Mg Tablet) 650 mg PO ONCE PRN PRN Reason: Pain, Mild (Pain Scale 1-3) Enoxaparin Sodium (Enoxaparin Sodium 40 Mg/0.4 Ml Syringe) 40 mg SUBCUT Q24H [facility] Last Admin: 06/25/22 18:36 Dose: 40 mg Documented By: DREW Fentanyl (Fentanyl Citrate/Pf 100 Mcg/2 Ml Vial) 25 mcg IVPUSH Q5M PRN; Protocol PRN Reason: Pain, Moderate (Pain Scale 4-6 Ferrous Sulfate (Ferrous Sulfate 324 Mg Tablet.Dr) 324 mg PO BEDTIME [facility] Last Admin: 06/25/22 20:14 Dose: 324 mg Documented By: DREW Folic Acid (Folic Acid 1 Mg Tablet) 1 mg PO DAILY@0630 [facility] Last Admin: 06/26/22 05:30 Dose: 1 mg Documented By: N-ANICL Lactated Ringer's (Lr) 1,000 mls @ 150 mls/hr IVCONT .Q6H40M [facility] Last Admin: 06/26/22 08:01 Dose: 150 mls/hr Documented By: FRANK Levofloxacin (Levaquin) 500 mg in 100 mls @ 100 mls/hr IV Q24H [facility] Lactated Ringer's (Lr) 1,000 mls @ 100 mls/hr IVCONT .Q10H [facility] Promethazine HCl 6.25 mg/ (Sodium Chloride) 50.25 mls @ 201 mls/hr IV ONCE PRN PRN Reason: Nausea and Vomiting Levothyroxine Sodium (Levothyroxine Sodium 112 Mcg Tablet) 112 mcg PO DAILY@0630 [facility] Last Admin: 06/26/22 05:30 Dose: 112 mcg Documented By: JESUS MANUEL-EDUARDO Methotrexate (Methotrexate Sodium 2.5 Mg Tablet) 20 mg PO Th [facility] Morphine Sulfate (Morphine Sulfate 2 Mg/Ml Cartridge) 4 mg IVPUSH Q3H PRN; Protocol PRN Reason: Pain, Mild (Pain Scale 1-3) Non-Formulary Medication (Cyclosporine [Restasis]) 1 drop EYE-BOTH BID [facility] Non-Formulary Medication (Nabumetone) 1 tab PO BID [facility] Non-Formulary Medication (Secukinumab [Cosentyx Pen (2 Pens)]) 2 syr SUBCUT Q28D [facility] Ondansetron HCl (Ondansetron Hcl 4 Mg/2 Ml Vial) 4 mg IVPUSH Q4H PRN PRN Reason: Nausea and Vomiting Last Admin: 06/26/22 09:39 Dose: 4 mg Documented By: FRANK Ondansetron HCl (Ondansetron Hcl 4 Mg/2 Ml Vial) 4 mg IVPUSH ONCE PRN PRN Reason: Nausea and Vomiting Oxycodone HCl (Oxycodone Hcl Immed Release 5 Mg Tablet) 5 mg PO ONCE PRN PRN Reason: Pain, Severe (Pain Scale 7-10) Pharmacy Consult (Consult Rx Perform Med Rec) 1 each MISCELLANE ONCE PRN PRN Reason: Consult order Sodium Chloride (0.9 % Sodium Chloride Flush 3 Ml Syringe) 3 ml IVFLUSH QSHIFT [facility] Last Admin: 06/26/22 07:59 Dose: 3 ml Documented By: FRANK Tamsulosin HCl (Tamsulosin Hcl 0.4 Mg Capsule) 0.4 mg PO DAILY [facility] Last Admin: 06/26/22 08:00 Dose: 0.4 mg Documented By: FRANK Vitamin D (Cholecalciferol (Vitamin D3) 25 Mcg Tablet) 50 mcg PO BEDTIME [facility] Last Admin: 06/25/22 20:14 Dose: 50 mcg Documented By: DREW Labs CBC & Chem 7: 06/26/22 09:46 06/26/22 09:46 Labs: Laboratory Results - last 24 hr 06/26/22 06/26/22 06/26/22 08:01 09:46 09:46 MCV 93.9 MCH 31.4 MCHC 33.4 RDW 13.6 Plt Count 339 MPV 9.2 L Immature Gran % (Auto) Neut % (Auto) Lymph % (Auto) [place] % (Auto) Eos % (Auto) Baso % (Auto) Lymph # (Auto) [place] # (Auto) Eos # (Auto) Baso # (Auto) Abs Immat Gran (auto) Absolute Neuts (auto) Absolute Nucleated RBC 0.000 Nucleated RBC % (auto) 0.0 Anion Gap 13 Estim Creat Clear Calc 73.5 Estimated GFR > 60 POC Glucose 94 Random Glucose 94 Calcium 8.7 D 06/26/22 09:46 MCV 94.5 MCH 31.4 MCHC 33.2 RDW 13.8 Plt Count 341 MPV 9.2 L Immature Gran % (Auto) 1.4 H Neut % (Auto) 80.4 H Lymph % (Auto) 12.3 L [place] % (Auto) 5.1 Eos % (Auto) 0.6 Baso % (Auto) 0.2 Lymph # (Auto) 2.0 [place] # (Auto) 0.8 Eos # (Auto) 0.1 Baso # (Auto) 0.0 Abs Immat Gran (auto) 0.23 H Absolute Neuts (auto) 13.1 H Absolute Nucleated RBC 0.000 Nucleated RBC % (auto) 0.0 Anion Gap Estim Creat Clear Calc Estimated GFR POC Glucose Random Glucose Calcium Microbiology Microbiology Results: Microbiology 06/25/22 12:41 Blood Culture - Preliminary Blood - Venous No growth after 24 hours. 06/25/22 12:41 Blood Culture - Preliminary Blood - Venous No growth after 24 hours. 06/25/22 Unknown Urine Culture - Final Urine clean catch - Urine mathias top Strep agalactiae (Grp B) Assessment and Plan (1) Nausea & vomiting: Status: Acute (2) UTI (urinary tract infection): Status: Acute (3) Nephrolithiasis: Status: Acute (4) Ureteral stone: Status: Acute Plan 51-year-old female with history of psoriatic arthritis, Bradley's disease presents ? Renal colic, hydronephrosis, mild MALLORY, possible UTI. 1.? Obstructive uropathy secondary to renal colic/uretral stone , possible UTI. ?has hydronephrosis on the left side. mallory improving with hydration ? Continue hydration, IV? morphine, Flomax, IV antibiotics ?await blood and urine culture. possible need urology intervention -for uretral stone . 2.? Nausea vomiting:Possible secondary to above. ? Continue antiemetic, pain management and hydration. ? 3. ? 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 4. ? Psoriatic arthritis: Continue home medications. ? DVT prophylaxis:? subQ Lovenox ? ongoing hospitilsation need :possible need urology intervention -for uretral stone , uti on iv antibiotics . Quality Stroke Does the patient have a stroke diagnosis?: No VTE Prior VTE?: No VTE Risk Level:: Medical - low VTE Device Contraindication: N/A - Device Ordered VTE Drug Contraindication: N/A - Med Ordered
[2022-06-26] MEDS: Enoxaparin Sodium 40 MG/0.4 ML SYRINGE SUBCUT (16:46)
[2022-06-26] MEDS: Cholecalciferol (Vitamin D3) 25 MCG TABLET 50 MCG PO (19:20)
[2022-06-26] MEDS: Ferrous Sulfate 324 MG TABLET.DR PO (19:20)
[2022-06-27] VITALS: BP 117/59; PULSE 60; RESP 16; TEMP 36.8; O2SAT 96
[2022-06-27] MEDS: Acetaminophen 325 MG TABLET 650 MG PO (00:02)
[2022-06-27 03:33] VITALS: BP 123/64; PULSE 60; RESP 18; TEMP 36.8; O2SAT 97
[2022-06-27] MEDS: Lactated Ringers 1,000 ML 150 ML IVCONT (05:41)
[2022-06-27] MEDS: Folic Acid 1 MG TABLET PO (05:42)
[2022-06-27] MEDS: Levothyroxine Sodium 112 MCG TABLET PO (05:42)
[2022-06-27] MEDS: Tamsulosin HCL 0.4 MG CAPSULE PO (07:26)
[2022-06-27] MEDS: metHOTREXate sodium 2.5 MG TABLET 20 MG PO (07:27)
[2022-06-27 08:00] VITALS: BP 123/64; PULSE 50; RESP 18; TEMP 36.9; O2SAT 94
--- NOTE | 2022-06-27 08:37 | P.PNUR_ITS ---
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 The patient states this is her first episode with kidney stone issues.? The Patient was seen here June 23.? Diagnosed with left punctate obstructing stone in the distal left ureter with question of slightly more distal stone with mild proximal hydroureteronephrosis.? She was sent home with PO morphine instructions on urology fu. She returned 06/25/22 with continued pain, vomiting and? some irritative urinary symptoms as well.? No fevers or chills. Pertinent Findings: CT Abd/pelvis 06/23/22--KIDNEYS AND URETERS: A punctate obstructing stone is noted in the distal left ureter, 4:539, with with question of possible additional stone slightly distally 4:574 which results in mild proximal hydroureteronephrosis. Few additional punctate nonobstructing bilateral renal stones are also seen. Left renal hypodensity too small to characterize. 06/26/22-- s/p cysto left ureteral stent - findings: distal ureteral stone with significant hydroureter 06/27/22- doing well post procedure, WBC trending down. stable for DC on PO abx from standpoint with outpatient fu for stone management Physical Exam Vital Signs: Vital Signs: Last Vital Signs Temp 98.4 F 06/27/22 08:00 Pulse 50 06/27/22 08:00 Resp 18 06/27/22 08:00 BP 123/64 06/27/22 08:00 Pulse Ox 94 06/27/22 08:00 O2 Del Method 06/27/22 08:00 O2 Flow Rate 4 06/26/22 12:57 BMI result Body Mass Index 32.1 Const: General: cooperative and no acute distress Orientation/consci ousness: patient oriented x3 HEENT: Head: Yes normal to inspection, Yes normocephalic and Yes atraumatic Eyes: Conjunctivae: conjunctivae normal Neck: Neck: Yes normal visual inspection and Yes trachea midline Chest: Chest palpation & inspection: normal inspection of the chest Resp: Effort & Inspection: normal respiratory effort Cardio: Rate: regular rate GI: Inspection: Yes normal to inspection Skin: General skin exam: no rashes or lesions noted Neuro: General: patient oriented x3 Extrem: General: No edema Psych: Appearance: grossly normal Urology Results Labs CBC & Chem 7: 06/26/22 09:46 06/26/22 09:46 Labs: Laboratory Results - last 24 hr 06/26/22 06/26/22 06/26/22 09:46 09:46 09:46 WBC 16.2 H 16.2 H RBC 3.76 L 3.79 L Hgb 11.8 L 11.9 L Hct 35.3 L 35.8 L MCV 93.9 94.5 MCH 31.4 31.4 MCHC 33.4 33.2 RDW 13.6 13.8 Plt Count 339 341 MPV 9.2 L 9.2 L Immature Gran % (Auto) 1.4 H Neut % (Auto) 80.4 H Lymph % (Auto) 12.3 L [place] % (Auto) 5.1 Eos % (Auto) 0.6 Baso % (Auto) 0.2 Lymph # (Auto) 2.0 [place] # (Auto) 0.8 Eos # (Auto) 0.1 Baso # (Auto) 0.0 Abs Immat Gran (auto) 0.23 H Absolute Neuts (auto) 13.1 H Absolute Nucleated RBC 0.000 0.000 Nucleated RBC % (auto) 0.0 0.0 Sodium 140 Potassium 3.8 Chloride 105 Carbon Dioxide 26 Anion Gap 13 BUN 18 H Creatinine 0.86 Estim Creat Clear Calc 73.5 Estimated GFR > 60 Random Glucose 94 Calcium 8.7 D Progress Note: A&P Assessment and plan (1) Nephrolithiasis: Status: Acute (2) Ureteral stone: Status: Acute (3) Hydronephrosis: Status: Acute (4) Pyelonephritis: Status: Acute Plan 06/27/22- doing well post Cysto Left Ureteral stent, WBC trending down. stable for DC on PO abx from standpoint with outpatient fu for stone managemen Time Spent With Patient Time: Total time spent is greater than 50% in coordination of care (as documented) at patient's floor/unit and/or counseling patient: Progress Note: Quality Stroke Does the patient have a stroke diagnosis?: No
--- NOTE | 2022-06-27 10:25 | PM.DS ---
DS: Providers Provider Date of Service: 06/27/22 Date of admission: 06/26/22 13:05 Primary care physician: Ton Robert MD Consults: 06/25/22 13:04 Consult to Urology Stat Consulting Provider: Hernando Davis Reason for consultation: stone 06/25/22 18:01 Consult to Urology Routine Consulting Provider: [facility] [place] Urology Services Reason for consultation: millie, Obstructive uropathy, UTI secondary to renal stone. 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 ?Patient was seen here June 23.? imaging left punctate obstructing stone in the distal left ureter with question of slightly distal stone with mild proximal hydroureteronephrosis. ?patient has elevated WBC count of 24.6k, also had nausea vomiting, abdominal pain is still not improving with pain medications, unable to tolerate p.o. currently. ?she says that it is her 1st episode of renal colic, her brother has renal stone issues,? she says pain in the left flank area going to the back, 7/10,? sharp, does not get better with any position. ? Denies any new complaint of chest pain or shortness of breath? or chills or nausea or vomiting Denies any cough Denies any weakness or numbness. ? Lab imaging reviewed: ? BUN is 24,? creatinine is 1.1 ?abdominal CT scan was done yesterday: findings as above in HPI. ?UA abnormal: has pyuria ?blood cultures and urine cultures sent ? Patient was given IV pain medication, hydration, iv antibiotics,Flomax and antiemetics:? Still has significant pain-? ED physician discussed the case with Urology recommended to admit and observe for renal colic and possible UTI . ?social history:? Lives with family, denies any alcohol, smoking or recreation drug use. Hospital course: patient admitted for acute kidney injury, obstructive uropathy secondary to ureter stone, possible pyelonephritis- started on IVhydration, antibiotics, IV pain medications, also added antiemetics due to nausea vomiting: patient seems to be significantly improved with above care, in addition patient was seen by Urology and stent was placed in ureter- patient pain is improved significantly and patient will be going home with p.o. antibiotics. leukocytosis is trending down, blood culture negative at 24 hours, urine culture pending- but further discussion with Urology patient can go home with Levaquin since patient is doing better no need to wait for urine culture currently. patient was explained in detail to follow up outpatient with Urology and CBC, BMP in [address] abd incidental finding: Solid right lower lobe pulmonary micronodule.? Assuming patient has no history of malignancy, recommend follow-up per Fleischner Society recommendations. According to the UPDATED 2017 Fleischner Society recommendations, the advised followup imaging for solid nodules < 6 mm is: * ? ? LOW RISK PATIENT: No routine follow up. * ? ? HIGH RISK PATIENT: Optional CT at 12 months Further management outpatient. plan: As above- complete course of antibiotic, follow-up with urology, CBC, BMP in 1 week out patiently. Assessment and plan coordination time spent 50 minutes. Patient understand and in agreement with the above plan. Time Spent with Patient Time attestation: Total time spent providing and/or coordinating discharge services: Discharge coordination time: Greater than 30 minutes Quality: Safe Use of Opioids Does Pt have an Active Cancer Diagnosis on the Problem List?: No Quality: Stroke Does the patient have a stroke diagnosis?: No Physical Exam Vital Signs: Vital Signs: Last Vital Signs Temp 98.4 F 06/27/22 08:00 Pulse 50 06/27/22 08:00 Resp 18 06/27/22 08:00 BP 123/64 06/27/22 08:00 Pulse Ox 94 06/27/22 08:00 O2 Del Method 06/27/22 08:00 O2 Flow Rate 4 06/26/22 12:57 BMI result Body Mass Index 32.1 Appearance: Alert.? Oriented X3.? not in distress.? cvs: rrr, [id number] . res: clear to auscultation ,no rhonchii or wheezing abd: no rebound or guarding ,nt , bs present. ext pulses present , no cyanosis . neuro: axo3 , nonfocal. DS: Data Data Completed and Pending Labs on day of discharge: Laboratory Results - last 24 hr 06/26/22 09:46 Sodium 140 Potassium 3.8 Chloride 105 Carbon Dioxide 26 Anion Gap 13 BUN 18 H Creatinine 0.86 Estim Creat Clear Calc 73.5 Estimated GFR > 60 Random Glucose 94 Calcium 8.7 D Preliminary micro results at discharge 06/25/22 12:41 Blood Culture - Preliminary Blood - Venous No growth after 24 hours. 06/25/22 12:41 Blood Culture - Preliminary Blood - Venous No growth after 24 hours. Additional Comments Additional comments: CT/CT abdomen pelvis wo IV con IMPRESSION: *? A punctate obstructing stone is noted in the distal left ureter, with question of possible additional stone slightly distally which results in mild proximal hydroureteronephrosis. Few additional punctate nonobstructing bilateral renal stones are also seen. *? Solid right lower lobe pulmonary micronodule.? Assuming patient has no history of malignancy, recommend follow-up per Fleischner Society recommendations. According to the UPDATED 2017 Fleischner Society recommendations, the advised followup imaging for solid nodules < 6 mm is: * ? ? LOW RISK PATIENT: No routine follow up. * ? ? HIGH RISK PATIENT: Optional CT at 12 months Discharge Plan Discharge Anticipated Discharge Date/Time: 06/27/22 10:18 Patient Disposition: Home, Self-Care Discharge Diagnosis: MILLIE, obstructive uropathy secondary to renal stone, UTI/ pyelo. Referrals: Ton Robert MD [Primary Care Provider] - 1 Week Discharge Medications: New levofloxacin 500 mg tablet 500 mg PO DAILY Qty: 8 0RF Continued morphine 15 mg tablet 15 mg PO Q4-6H PRN (Reason: pain) Qty: 14 0RF Rx Instructions: Patient may request partial fill; Partial Fill upon patient request. nabumetone 750 mg tablet 1 tab PO BID methotrexate sodium 2.5 mg tablet 8 tab PO QWEEK folic acid 1 mg tablet 1 tab PO DAILY@0630 levothyroxine 112 mcg tablet 1 tab PO DAILY@0630 Cosentyx Pen (2 Pens) 150 mg/mL pen injector 2 syringe subcut Q4W ferrous sulfate 325 mg (65 mg iron) Tablet 325 mg PO BEDTIME cyclosporine [Restasis] 0.05 % Dropperette 1 drp ophthalmic (eye) BID cholecalciferol (vitamin D3) 50 mcg (2,000 unit) Capsule 50 mcg PO BEDTIME Discharge Orders: Discharge Order (Routine); Ordered 06/27/22 Ordered By: Ewa Rhodes Diet: Advance to usual diet Activity on Discharge: As tolerated Stand Alone Forms: Patient Portal Discharge page Care Plan Goals: patient admitted for acute kidney injury, obstructive uropathy secondary to ureter stone, possible pyelonephritis- started on IVhydration, antibiotics, IV pain medications, also added antiemetics due to nausea vomiting: patient seems to be significantly improved with above care, in addition patient was seen by Urology and stent was placed in ureter- patient pain is improved significantly and patient will be going home with p.o. antibiotics. leukocytosis is trending down, blood culture negative at 24 hours, urine culture pending- but further discussion with Urology patient can go home with Levaquin since patient is doing better no need to wait for urine culture currently. patient was explained in detail to follow up outpatient with Urology and CBC, BMP in 1 week out patiently. Solid right lower lobe pulmonary micronodule on abd CT scan incidental finding: May consider repeating imaging of chest outpatient as per PCP. Further management outpatient. Health Concerns: As above- complete course of antibiotic, follow-up with urology, CBC, BMP in 1 week out patiently. Plan of Treatment: As above. Assessment: As above. Patient Instructions: Acute Kidney Injury (DC), Urinary Tract Infection in Women (DC), Renal Colic (ED), Kidney Infection (DC), Ureteral Stones (DC)
[2022-06-27] MEDS: levoFLOXacin 500 MG TABLET PO (11:11)
--- NOTE | 2022-06-27 11:59 | MHC.CM.PN ---
PATIENT DC HOME - SELF CARE
--- NOTE | 2022-06-27 12:51 | HO.POSTANES ---
Post Anesthesia Evaluation Post Anesthesia Evaluation Vital Signs: Vital Signs Temp Pulse Resp BP Pulse Ox O2 Del Method 06/27/22 08:00 98.4 F 50 18 123/64 94 Room Air 06/27/22 03:33 98.3 F 60 18 123/64 97 Room Air Anesthesia: General Mental Status: Awake Pain Control: Satisfactory Nausea/Vomiting: None Hydration: Adequate Anesthesia-Related Issues: No Anes. Related Issues
== END 2022-06-27 11:42 | disposition home or self-care (01) | DRG 661 ==
LOC: HO.ED 13:58 → HO.EDOVER 15:32 → HO.S3 06-26 15:05
PROVIDERS: Nurse Practitioner Family; Urology; Admitting Provider Internal Medicine; Emergency Provider Emergency Medicine; PCP Internal Medicine; Visit Provider Internal Medicine
PROC: 0T778DZ Dilation of Left Ureter with Intraluminal Device, Via Natural or Artificial Opening Endoscopic (ICD-10-PCS; principal; 2022-06-26 12:30)
DX: N13.6 Pyonephrosis (principal); N17.9 Acute kidney failure, unspecified; L40.50 Arthropathic psoriasis, unspecified; E06.3 Autoimmune thyroiditis; Z20.822 Contact with and (suspected) exposure to COVID-19; Z23 Encounter for immunization; Z88.0 Allergy status to penicillin; Z88.8 Allergy status to other drugs, medicaments and biological substances; Z79.890 Hormone replacement therapy; Z79.899 Other long term (current) drug therapy
CPT/HCPCS: 36415; 80048; 80076; 81001; 81003; 81025; 82947; 83605; 85025; 85027; 87040; 87086; 87147; 87635; 99218; 99284; C1758; C1769; C2617; J1100; J1650; J1885; J1956; J2250; J2270; J2405; J3010; Q9965

== ENCOUNTER 2022-07-10 10:06 | Outpatient (REF) | payer OTHER, SELFPAY ==
[2022-07-10 11:20] LABS: MANUAL DIFF FLAG NO
[2022-07-10 11:36] LABS: Basophils Percent Auto 0.3 % (0-2); Eosinophils Absolute Auto 0.2 X10*3/uL (0.0-0.4); Eosinophils Percent Auto 3.1 % (0-4); Hematocrit 40.7 % (37.0-47.0); Hemoglobin 13.3 g/dl (12.0-16.0); Imm Gran Abs Auto 0.03 X10*3/uL (0.00-0.03); Imm Gran Pct Auto 0.4 % (0.0-0.4); Lymphocytes Absolute Auto 1.9 X10*3/uL (1.2-4.9); Lymphocytes Percent Auto 27.1 % (20-40); Mean Corpuscular HGB Conc 32.7 g/dl (31.0-35.0); Mean Corpuscular Hemoglobin 30.8 pg (27.0-33.0); Mean Corpuscular Volume 94.2 fL (80.0-98.0); Monocytes Absolute Auto 0.5 X10*3/uL (0.1-1.2); Monocytes Percent Auto 7.1 % (2-11); Neutrophils Absolute Auto 4.4 x10*3/uL (2.0-8.3); Platelet Count 488 X10*3/uL (160-400); Red Blood Count 4.32 X10*6/uL (4.20-5.50); Red Cell Distribution Width 13.6 % (11.0-16.0); White Blood Count 7.2 X10*3/uL (4.8-10.8)
[2022-07-10 12:28] LABS: Free T4 (Free Thyroxine) 1.51 ng/dL (0.71-1.85); Thyroid Stimulating Hormone 3.23 uIU/mL (0.32-4.0)
== END 2022-07-10 10:07 | disposition home or self-care (01) ==
LOC: HO.MANLDS 10:06
PROVIDERS: Visit Provider Physician Assistant
DX: N10 Acute pyelonephritis (principal); E03.8 Other specified hypothyroidism
CPT/HCPCS: 36415; 84439; 84443; 85025

== ENCOUNTER 2022-07-16 09:21 | Day surgery (SDC) | payer OTHER, SELFPAY ==
--- NOTE | 2022-07-15 09:19 | HO.ANESPROP2 ---
HPI - Anesthesia Eval Consult details Narrative: 51yo F for Left Cystoscopy, Ureteroroscopy, Retro, Laser,with stent exchange s/p cysto, etc 06/26/22 with [facility]-LMA 4 PMFSH Active Problems Active Problems: All Active Problems (Updated 07/15/22 @ 08:06 by Indu An, RN) Pyelonephritis (Acute) Hydronephrosis (Acute) Ureteral stone (Acute) Nephrolithiasis (Acute) UTI (urinary tract infection) (Acute) MILLIE (acute kidney injury) (Acute) Nausea & vomiting (Acute) Past Medical History Medical History (Updated 07/15/22 @ 08:06 by Indu An, RN) Nephrolithiasis Psoriatic arthritis Family History Family history of problems with anesthesia: No Surgical History Surgical History (Updated 07/15/22 @ 08:07 by Indu An RN) S/P cystoscopy with ureteral stent placement History of Problems with Anesthesia: Yes (Slow awakening, PONV with knee surgery) Social History Social History Household Members: Spouse and Children Housing: House Do you presently have visiting nurse or other home services: No Alcohol intake: never Patient Tobacco Use Status: Never used Tobacco service: No Current occupational status: employed Meds Allergies Allergy/AdvReac Type Severity Reaction Status Date / Time adalimumab [Humira] Allergy Unknown Shortness Verified 07/05/22 10:37 of Breath penicillin V Allergy Unknown hives, Verified 07/05/22 10:37 throat swelling Penicillins [PENICILLINS] Allergy Unknown HIVES, Verified 07/05/22 10:37 DIFF BREATHING penicillin Allergy Unknown Hives Uncoded 06/25/22 18:35 Home Medications Medication Instructions Recorded Confirmed Last Taken Type cholecalciferol (vitamin D3) 50 50 mcg PO BEDTIME 06/25/22 06/25/22 06/23/22 History mcg (2,000 unit) capsule cyclosporine 0.05 % eye drops in a 1 drp ophthalmic (eye) BID 06/25/22 06/25/22 06/23/22 History dropperette (Restasis) ferrous sulfate 325 mg (65 mg 325 mg PO BEDTIME 06/25/22 06/25/22 07/14/22 History iron) tablet folic acid 1 mg tablet 1 tab PO DAILY@0630 11/09/1506/25/22 07/16/22 History levothyroxine 112 mcg tablet 1 tab PO DAILY@0630 06/25/22 06/25/22 07/16/22 History methotrexate sodium 2.5 mg tablet 8 tab PO QWEEK 06/25/22 06/25/22 07/10/22 History nabumetone 750 mg tablet 1 tab PO BID 06/25/22 06/25/22 07/10/22 History secukinumab 150 mg/mL subcutaneous 2 syringe subcut Q4W 06/25/22 06/25/22 06/21/22 History pen injector (Cosentyx Pen 300 mg/2 Pens () Exam Exam Date and Time: July 15, [id number] Pertinent Lab Results Pertinent Lab Results: Laboratory Tests 06/26/22 07/10/22 09:46 10:09 WBC 7.2 Hgb 13.3 Hct 40.7 Plt Count 488 H D Sodium 140 Potassium 3.8 Chloride 105 Carbon Dioxide 26 BUN 18 H Creatinine 0.86 Assessment and Plan Assessment Anesthesia Assessment: Chart Reviewed Final Anesthetic Review Family History of Problems with Anesthesia: No History of Problems with Anesthesia: Yes (Slow awakening, PONV with knee surgery)
--- NOTE | ~2022-07-16 | FL_ITS ---
EXAMINATION: XR FLUOROSCOPY WITH IMAGES CLINICAL INFORMATION: Urinary tract calculi. Cystoscopy, ureteroscopy, laser, retrograde COMPARISON: Fluoroscopic spot view 06/26/2022, CT abdomen and pelvis 06/23/2022 TECHNIQUE: Fluoroscopy Supervised By: Dr. Davis. Fluoroscopy Time: 9 seconds. Cumulative Dose: 2.58 mGy. Images: 2. FINDINGS: There is a guidewire in the left urinary tract. The left ureteral stent noted on prior exam 06/26/2022 is no longer demonstrated. FL/FL guidance in OR IMPRESSION: Fluoroscopy for urologic procedures.
[2022-07-16 07:22] VITALS: BMI 32.1
[2022-07-16 10:01] VITALS: BP 135/66; PULSE 57; RESP 16; TEMP 36.6; O2SAT 98
[2022-07-16] MEDS: Lactated Ringers 1,000 ML 100 ML IVCONT (10:25)
--- NOTE | 2022-07-16 11:14 | MHC.SHP ---
Pre-Procedural Eval Section A Date of Service: 07/16/22 The patient is an INPATIENT: No Section B Chief Complaint: Calculus of kidney Allergies: Allergies Allergy/AdvReac Type Severity Reaction Status Date / Time adalimumab [Humira] Allergy Unknown Shortness Verified 07/05/22 10:37 of Breath penicillin V Allergy Unknown hives, Verified 07/05/22 10:37 throat swelling Penicillins [PENICILLINS] Allergy Unknown HIVES, Verified 07/05/22 10:37 DIFF BREATHING penicillin Allergy Unknown Hives Uncoded 06/25/22 18:35 Plan I have reviewed the history and physical and performed a pertinent physical examination on my patient. No changes have occurred unless specified. Plan for Cystoscopy, Left ureteroscopy, possible laser lithotripsy, possible ureteral stent exchange. Risks discussed included but not limited to, possible need to repeat procedure if stone is not completely fragmented, Irritative voiding symptoms, bladder spasms, urgency, blood in urine.
[2022-07-16 13:35] VITALS: BP 127/61; PULSE 75; RESP 16; TEMP 36.6; O2SAT 94
[2022-07-16 13:40] VITALS: BP 139/52; PULSE 66; RESP 16; O2SAT 95
[2022-07-16] MEDS: ondansetron HCL 4 MG/2 ML VIAL IVPUSH (13:40)
[2022-07-16 13:45] VITALS: BP 139/52; PULSE 67; RESP 14; O2SAT 99
--- NOTE | 2022-07-16 13:47 | W.PM.OPN ---
Operative Note Operative Note Date of Service: 07/16/22 Narrative: PreOperative Diagnosis:?? Left ureteral stone Post Operative Diagnosis:?? Left ureteral stone Procedure: - cystoscopy, Left ureteroscopy stone extraction, stent removal Surgeon:?Dr Hernando Davis Anesthesia:? General Procedure: After informed consent was verified the patient was brought to the operating placed on the OR table in supine position.? General Anesthesia was administered per protocol.? The patient was placed in lithotomy position, prepped and draped in the usual sterile fashion.? Safety pause time-out and side of surgery confirmed.? Antibiotics confirmed. A 22 Polish cystoscope was inserted transurethrally, bladder was visualized.? Both ureteric orifices were in normal position. The distal end of the left ureteral stent was visualized. The stent was grasped and brought out through the urethra, a guidewire was passed through the stent and the stent was removed leaving the guidewire in place. The semi rigid ureteroscope was passed transurethrally alongside the guidewire, the stone was seen distally in the ureter. The 0 degree basket was passed through the ureteroscope, the stone was removed to send for analysis. The ureteroscope was removed. The cystoscope was placed into the bladder , the guidewire was removed and the bladder was emptied.? The rigid cystoscope was removed. ? 2% lidocaine jelly 10 mL was passed transurethrally. The patient tolerated the procedure well and was brought to the recovery room in stable condition. Complications: None Drains: none
[2022-07-16 14:05] VITALS: BP 116/58; PULSE 65; RESP 16; O2SAT 100
[2022-07-16 14:20] VITALS: BP 123/62; PULSE 60; RESP 16; TEMP 36.1; O2SAT 98
[2022-07-22 16:26] LABS: Stone Source LEFT URETERAL STONE
== END 2022-07-16 14:43 | disposition home or self-care (01) ==
PROVIDERS: PCP Internal Medicine; Visit Provider Urology
PROC: (CPT 52352; principal; 2022-07-16 11:00)
DX: N20.1 Calculus of ureter (principal); Z79.899 Other long term (current) drug therapy; Z88.0 Allergy status to penicillin
CPT/HCPCS: 52352; 82365; 87086; 88300; C1769; J1100; J1885; J1956; J2250; J2405; J3010; Q9967

== ENCOUNTER → 2022-10-02 14:14 | Outpatient (BNVA) | payer OTHER, SELFPAY | PROVIDERS: PCP Internal Medicine; Visit Provider Urology | DX: Z13.89 Encounter for screening for other disorder (principal) ==

== ENCOUNTER 2022-10-16 09:07 | Outpatient (REF) | payer OTHER, SELFPAY ==
--- NOTE | ~2022-10-16 | MM_ITS ---
EXAMINATION: MM SCREENING DIGITAL BREAST TOMOSYNTHESIS, BILATERAL CLINICAL INFORMATION: Screening. Asymptomatic. The lifetime risk of breast cancer based on the Tyrer-Cuzick Model is 7%. COMPARISON: Mammography: 10/05/2021, 07/18/2020, 07/20/2019, 07/14/2019 TECHNIQUE: Digital breast tomosynthesis is performed in both the craniocaudal and mediolateral oblique views along with computer-aided detection (CAD). Synthesized 2D images are generated from the tomosynthesis. FINDINGS: The breasts are heterogeneously dense, which may obscure small masses (ACR BI-RADS breast composition Category c). No architectural abnormality or developing density or significant change from prior studies. No abnormal calcifications. The axilla are unremarkable. There is chronic bilateral nipple retraction similar to prior exams. MM/MM tomosynthesis screening BI IMPRESSION: No mammographic evidence of malignancy. ASSESSMENT: BI-RADS 2: Benign RECOMMENDATION: Routine annual mammography screening. This patient's information was entered into a reminder system with a target due date for their next mammogram.
== END 2022-10-16 09:08 | disposition home or self-care (01) ==
LOC: HO.MAMMO 09:07
PROVIDERS: PCP Internal Medicine; Visit Provider Internal Medicine
DX: Z12.31 Encounter for screening mammogram for malignant neoplasm of breast (principal)
CPT/HCPCS: 77063; 77067

== ENCOUNTER 2023-02-27 07:50 | Outpatient (REF) | payer OTHER, SELFPAY ==
--- NOTE | ~2023-02-27 | XR_ITS ---
EXAMINATION: XR ABDOMEN KUB CLINICAL INDICATION: Calculus of kidney. COMPARISON: Renal ultrasound performed today. CT scan of the abdomen and pelvis dated 06/23/2022. TECHNIQUE: AP view of the abdomen. FINDINGS: The bowel gas pattern is normal with no evidence of ileus or obstruction. A 0.3 cm radiopaque density overlies the upper pole the right kidney. Multiple phleboliths are seen overlying the inferior pelvis. Mild degenerative disc disease is seen at L3-L4 and L4-L5. L5-S1 is transitional with partial sacralization of L5 on the right side. XR/XR KUB IMPRESSION: 1. 0.3 cm radiopaque density overlying of both right kidney may represent intrarenal calculus. Other known intrarenal calculi are not as well visualized radiographically. Please refer to the renal ultrasound from today for more detailed findings.
--- NOTE | ~2023-02-27 | US_ITS ---
EXAMINATION: US RETROPERITONEAL LIMITED (RENAL ONLY) CLINICAL INFORMATION: Calculus of kidney. COMPARISON: X-ray abdomen KUB same date. CT abdomen and pelvis 06/23/2022. TECHNIQUE: Real-time imaging of the kidneys. FINDINGS: RIGHT KIDNEY: 10.9 x 4.7 x 6.0 cm (SAG x AP x TRV). Medial midpole 0.5 cm cyst is difficult to characterize due to small size. There is a 0.7 cm upper pole and a 0.3 cm mid pole calculi. No hydronephrosis. Limited visualization. Renal cortical thickness is normal. LEFT KIDNEY: 10.4 x 4.6 x 4.4 cm (SAG x AP x TRV). Renal calculi measure 0.3 cm midpole, 0.6 cm lower pole and 0.6 cm lower pole. Renal cortical thickness is normal. No hydronephrosis. Limited visualization. There is a 1.2 x 1.1 x 1.1 cm cyst lower pole with benign features. There is no indication for follow-up imaging. US/US renal BI IMPRESSION: Bilateral renal calculi. No hydronephrosis.
== END 2023-02-27 07:51 | disposition home or self-care (01) ==
LOC: HO.US 07:50
PROVIDERS: PCP Internal Medicine; Visit Provider Urology
DX: N20.0 Calculus of kidney (principal)
CPT/HCPCS: 74018; 76775

== ENCOUNTER 2023-04-17 11:21 | Outpatient (AMB) | payer OTHER, SELFPAY ==
--- NOTE | 2023-04-17 05:58 | A.OFFVIS_ITS ---
Intake Intake Visit Reasons: 6m follow up/US(?)KUB(?) Intake Note: Patient presents today for a 6m follow up US & KUB Results, completed on 02/27/2023: Bilateral kidney stones Meds- Pyridium Allergies to Antibiotic- Penicillin Blood Thinner- None Wedding Decorator Required: No Accompanied by: Self / Same As Patient Allergies adalimumab [Humira] Allergy (Unknown, Verified 04/17/23 11:23) Shortness of Breath Penicillins [PENICILLINS] Allergy (Unknown, Verified 04/17/23 11:23) HIVES, DIFF BREATHING HPI HPI Comments History of Present Illness Details Joan is a 52-year-old female who presents today to the office for a 6- month follow-up US and KUB results. 04/17/2023? She is followed today for US and KUB results. PMH of psoriatic arthritis, Bradley's disease. She was last seen by me on 10/02/2022 for bilateral kidney stones. Patient was instructed on the importance of fluid intake up to 2.5 liters at that time. She was advised to continue with Low-oxalate diet, low-sodium diet, and to follow up in 6 months with renal sono, KUB and repeat 24-hour urine. She states that she is trying to consume adequate amount of fluids. She states that she is adding lemon to water. I reviewed the US retroperitoneal results from 02/27/2023 revealed bilateral renal calculi. No hydronephrosis. I reviewed the X ray KUB results from 02/27/2023 revealed 0.3 cm radiopaque density overlying of both right kidney may represent intrarenal calculus. Other known intrarenal calculi are not as well visualized radiographically. Please refer to the renal ultrasound from today for more detailed findings. 04/17/2023: Evaluation today?UA?leukocyt es: negative; blood: negative. Review of charts: Last visit: 10/02/2022? 51-year-old female followed for kidney s tones here in fu post 24 hr urine PMhistory of psoriatic arthritis, Bradley's disease. s/p Left ureteral stent on 06/26/22.? s/p left ureteroscopy stone extraction, stent removal on 07/16/22? --? Discussed 24 hour urine results-Jann ected 09/06/22:? Total volume? 590? mL, Calcium? 142 mg; Oxalate? 17? mg, Sodium 113, Citrate? 437? mg.? Instructed on importance of fluid intake up to 2.5 liters important, Continue with Low oxalate diet, low sodium diet. Plan: follow up in 6months renal sono, KUB and repeat 24 hr urine Treatment course: s/p Left ureteral stent on 06/26/22.? s/p left ureteroscopy left distal stone extraction, stent removal on 07/16/22? Imaging: CT Abd/pelvis 06/23/22--KIDNEYS AND URETERS: A punctate obstructing stone is noted in the distal left ureter,? with with question of possible additional stone slightly distally? which results in mild proximal hydroureteronephrosis. Few additional punctate nonobstructing bilateral renal stones are also seen. Left renal hypodensity too small to characterize. (note s/p Left ureteral stent 06/26/22) 04/17/2023: Plan: Vitamin B6 100 mg QD was ordered. Follow up in 7 months. CAT scan of the abdomen/pelvis stone protocol, prior [facility] Medical History Nephrolithiasis Psoriatic arthritis Surgical History S/P cystoscopy with ureteral stent placement Family History Father No problems noted. Mother No problems noted. Social History Household Members: Spouse and Children Housing: House Do you presently have visiting nurse or other home services: No Alcohol intake: never Patient Tobacco Use Status: Never used Tobacco service: No Current occupational status: employed Review of Systems Const All systems reviewed & are unremarkable except as noted in HPI and below Reports no additional complaints Eyes Reports no additional complaints ENT Reports no additional complaints Card Denies dyspnea Resp Denies cough and Denies dyspnea GI Reports no additional complaints Reports no additional complaints Musc Reports no additional complaints Skin/Breast Denies rash and Denies unusual bruising Neuro Reports no additional complaints Psych Reports no additional complaints Endo Reports no additional complaints Yinka/Lymph Reports no additional complaints Aller/Immun Reports no additional complaints Physical Exam Const General: cooperative and no acute distress Orientation/consciousness: patient oriented x3 HEENT Head: Yes normal to inspection, Yes normocephalic and Yes atraumatic Eyes Conjunctivae: conjunctivae normal Neck Neck: Yes normal visual inspection and Yes trachea midline Chest Chest palpation & inspection: normal inspection of the chest Resp Effort & Inspection: normal respiratory effort Cardio Rate: regular rate GI Inspection: Yes normal to inspection Skin General skin exam: no rashes or lesions noted Neuro General: patient oriented x3 Psych Appearance: grossly normal Results AMB Urinalysis, Automated UA Leukoctes 0 Yani/uL Last Edit by BRANDIE Billings on 04/17/23 11:33 UA Nitrite Negative Last Edit by Fercho Turner [place] on 04/17/23 11:33 UA Urobilinogen 0.2 mg/dL Last Edit by Fercho Turner [place] on 04/17/23 11:3 3 UA Protein 15 mg/dL Last Edit by Fercho Turner [place] on 04/17/23 11:33 UA pH 6.0 Last Edit by Fercho Turner [facility] on 04/17/23 11:33 UA Blood 0 Rober/uL Last Edit by Fercho Turner [place] on 04/17/23 11:33 UA Specific [place] 1.030 Last Edit by Fercho Turner [place] on 04/17/23 11: 33 UA Ketone Negative Last Edit by BRANDIE Billings on 04/17/23 11:33 UA Bilirubin 0 mg/dL Last Edit by Fercho Turner [facility] on 04/17/23 11:33 UA Glucose 0 mg/dL Last Edit by Fercho Turner [facility] on 04/17/23 11:33 Results Reviewed Results Reviewed: Laboratory Last Values Urine pH (Auto) 6.0 08/24/23 11:32 Specific [place] (Auto) 1.030 04/17/23 11:32 Urine Protein (Auto) 15 mg/dL 04/17/23 11:32 Glucose (UA)(Auto) 0 mg/dL 04/17/23 11:32 Urine Ketones (Auto) Negative 04/17/23 11:32 Urine Blood (Auto) 0 Rober/uL 04/17/23 11:32 Urine Nitrite (Auto) Negative 04/17/23 11:32 Urine Bilirubin (Auto) 0 mg/dL 04/17/23 11:32 Urine Urobilinogen (Auto) 0.2 mg/dL 04/17/23 11:32 Leukocyte Esterase (Auto) 0 Yani/uL 04/17/23 11:32 Date of Service: 02/27/23 EXAMINATION: US RETROPERITONEAL LIMITED (RENAL ONLY) CLINICAL INFORMATION: Calculus of kidney. COMPARISON: X-ray abdomen KUB same date. CT abdomen and pelvis 06/23/2022. FINDINGS: RIGHT KIDNEY: 10.9 x 4.7 x 6.0 cm (SAG x AP x TRV). Medial midpole 0.5 cm cyst is difficult to characterize due to small size. There is a 0.7 cm upper pole and a 0.3 cm mid pole calculi. No hydronephrosis. Limited visualization. Renal cortical thickness is normal. LEFT KIDNEY: 10.4 x 4.6 x 4.4 cm (SAG x AP x TRV). Renal calculi measure 0.3 cm midpole, 0.6 cm lower pole and 0.6 cm lower pole. Renal cortical thickness is normal. No hydronephrosis. Limited visualization. There is a 1.2 x 1.1 x 1.1 cm cyst lower pole with benign features. There is no indication for follow-up imaging. IMPRESSION: Bilateral renal calculi. No hydronephrosis. Date of Service: 02/27/23 EXAMINATION: XR ABDOMEN KUB CLINICAL INDICATION: Calculus of kidney.? COMPARISON: Renal ultrasound performed today. CT scan of the abdomen and pelvis dated 06/23/2022.? FINDINGS: The bowel gas pattern is normal with no evidence of ileus or obstruction. A 0.3 cm radiopaque density overlies the upper pole the right kidney. Multiple phleboliths are seen overlying the inferior pelvis. Mild degenerative disc disease is seen at L3-L4 and L4-L5. L5-S1 is transitional with partial sacralization of L5 on the right side. IMPRESSION: 1.? 0.3 cm radiopaque density overlying of both right kidney may represent intrarenal calculus. Other known intrarenal calculi are not as well visualized radiographically. Please refer to the renal ultrasound from today for more detailed findings. Assessment & Plan Assessment & Plan (1) Bilateral kidney stones: Code(s): N20.0 - Calculus of kidney (2) Nephrolithiasis: Code(s): N20.0 - Calculus of kidney Plan Vitamin B6 100 mg QD was ordered. Follow up in 7 months. CAT scan of the abdomen/pelvis stone protocol, prior Orders: Orders CT abdomen pelvis wo IV con 6 Months N20.0 - Calculus of kidney AMB Urinalysis Automated 04/17/23 Z13.9 - Encounter for screening, unspecified Medications: New pyridoxine (vitamin B6) 100 mg PO DAILY 90 tabs 3RF Patient Instructions: The patient had an opportunity to ask questions regarding treatment plan. All questions were answered. Imaging, Laboratory studies and physical exam results were discussed and reviewed in detail. No major barriers to understanding were identified. The patient expressed understanding and agreement with the above treatment plan.? ? ? The patient is aware they should contact our office by phone for worsening of their current condition or the appearance of new symptoms. Compliance is encouraged with any medications and followup testing that is ordered.? ? ? It is a privilege to be allowed the opportunity to participate in the urologic care of your patient. If you have any questions or concerns regarding treatment for the above conditions please do not hesitate to contact me. The office telephone contact is [phone].? ? ? This note is constructed in part using voice recognition software. While every effort has been made to ensure accuracy nuclear plant construction worker errors may have been included.? ? ? Yours sincerely,? ? ? Hernando Davis MD? ? Coding Level of Care Code Est Pt Level 4 (77998) Diagnoses Bilateral kidney stones N20.0 Nephrolithiasis N20.0
== END 2023-04-17 11:56 | disposition home or self-care (01) ==
PROVIDERS: PCP Internal Medicine; Visit Provider Urology
DX: N20.0 Calculus of kidney (principal)
CPT/HCPCS: 99214

== ENCOUNTER → 2023-04-17 11:21 | Outpatient (BNVA) | payer OTHER, SELFPAY | PROVIDERS: Visit Provider Urology | DX: N20.0 Calculus of kidney (principal) | CPT/HCPCS: 81003; 99212 ==

== ENCOUNTER 2023-11-03 09:49 | Outpatient (REF) | payer OTHER, SELFPAY ==
--- NOTE | ~2023-11-03 | US_ITS ---
EXAMINATION: US RETROPERITONEAL COMPLETE (RENAL) CLINICAL INFORMATION: Renal calculus. COMPARISON: Renal ultrasound from 02/27/2023. Abdomen CT from 06/23/2022. TECHNIQUE: Real-time imaging of the kidneys and bladder. FINDINGS: RIGHT KIDNEY: 12 x 5 x 5.1 cm (SAG x AP x TRV). 0.7 cm simple cyst of the interpolar region. No renal imaging follow-up is recommended for simple cyst. Questionable finding of a small 0.4 cm calyceal stone of the interpolar area. A calyceal stone in the upper pole measures up to 0.5 cm and is unchanged compared to 02/27/2023. No hydronephrosis. LEFT KIDNEY: 10.4 x 5.1 x 4.1 cm (SAG x AP x TRV). 1.1 cm simple cyst of the lower pole. No renal imaging follow-up recommended. 0.5 cm calyceal stone of the lower pole is unchanged compared to 02/27/2023. Also, there appears to be a small, approximately 0.3 cm stone in the interpolar area and possible 0.4 cm stone in the upper pole. No large calculi or hydronephrosis. A region of decreased echotexture at the posterior upper pole corresponds to site of chronic cortical thinning/atrophy seen on abdomen CT from 06/23/2022. BLADDER: Well distended and normal. Bilateral ureteral jets are demonstrated. Prevoid bladder volume is 170 mL. Postvoid bladder volume is 4 mL. US/US retroperitoneal comp IMPRESSION: * Again noted are small bilateral renal calculi. No large stones or hydronephrosis. * Urinary bladder is normal.
== END 2023-11-03 09:50 | disposition home or self-care (01) ==
LOC: HO.US 09:49
PROVIDERS: PCP Internal Medicine; Visit Provider Urology
DX: N20.0 Calculus of kidney (principal); R10.9 Unspecified abdominal pain; Z52.4 Kidney donor
CPT/HCPCS: 76770

== ENCOUNTER 2023-11-12 09:01 | Outpatient (REF) | payer OTHER, SELFPAY ==
--- NOTE | ~2023-11-12 | MM_ITS ---
EXAMINATION: MM SCREENING DIGITAL BREAST TOMOSYNTHESIS, BILATERAL CLINICAL INFORMATION: Screening. Asymptomatic. COMPARISON: Mammography: 10/16/2022, 10/05/2021, 07/18/2020, 07/20/2019, 07/14/2019 TECHNIQUE: Digital breast tomosynthesis is performed in both the craniocaudal and mediolateral oblique views along with computer-aided detection (CAD). Synthesized 2D images are generated from the tomosynthesis. FINDINGS: The breasts are heterogeneously dense, which may obscure small masses (ACR BI-RADS breast composition Category c). There is chronic nipple retraction, unchanged from prior exams. There are bilateral subtle vascular calcifications. There are no suspicious masses, suspicious grouped calcifications, or areas of architectural distortion in either breast. The parenchymal pattern is stable from prior exams. MM/MM tomosynthesis screening BI IMPRESSION: No mammographic evidence of malignancy. Stable examination. ASSESSMENT: BI-RADS BI-RADS 2 - Benign Findings RECOMMENDATION: Routine annual mammography screening. 1 year F/U This examination should not preclude the clinical evaluation of a suspicious palpable abnormality. This patient's information was entered into a reminder system with a target due date for their next mammogram.
== END 2023-11-12 09:02 | disposition home or self-care (01) ==
LOC: HO.MAMMO 09:01
PROVIDERS: PCP Internal Medicine; Visit Provider Internal Medicine
DX: Z12.31 Encounter for screening mammogram for malignant neoplasm of breast (principal)
CPT/HCPCS: 77063; 77067

== ENCOUNTER → 2023-11-12 09:15 | Outpatient (BNV) | payer OTHER, SELFPAY | PROVIDERS: PCP Internal Medicine; Visit Provider Radiology Diagnostic Radiology | DX: Z12.31 Encounter for screening mammogram for malignant neoplasm of breast (principal) | CPT/HCPCS: 77063; 77067 ==

== ENCOUNTER 2023-11-17 09:54 | Outpatient (AMB) | payer OTHER, SELFPAY ==
--- NOTE | 2023-11-17 09:56 | A.OFFVIS_ITS ---
Intake Visit Reasons: Follow up Intake Note: Patient presents today for a follow up on US Meds- None Allergies to Antibiotic- Penicillins Blood Thinner- None Patient stated he is no longer taking Tamsulosin, or Pyridium Oracle Adf Developer Required: No Accompanied by: Self / Same As Patient Allergies adalimumab [Humira] Allergy (Unknown, Verified 11/17/23 10:01) Shortness of Breath Penicillins [PENICILLINS] Allergy (Unknown, Verified 11/17/23 10:01) HIVES, DIFF BREATHING HPI Comments Details: Joan is a 53-year-old female who presents today to the office for follow-up to review US results. She states she is doing well. She denies gross hematuria or renal colic. Reviewed renal US 11/03/23- no significant change, bilateral renal calculi, small, no hydronephrosis. Plan cont to monitor kidney stones. FU in one year. Review of chart: 04/17/2023? She is followed today for US and KUB results. PMH of psoriatic arthritis, Bradley's disease. She was last seen by me on 10/02/2022 for bilateral kidney stones. Patient was instructed on the importance of fluid intake up to 2.5 liters at that time. She was advised to continue with Low-oxalate diet, low-sodium diet, and to follow up in 6 months with renal sono, KUB and repeat 24-hour urine. She states that she is trying to consume adequate amount of fluids. She states that she is adding lemon to water. I reviewed the US retroperitoneal results from 02/27/2023 revealed bilateral renal calculi. No hydronephrosis. I reviewed the X ray KUB results from 02/27/2023 revealed 0.3 cm radiopaque density overlying of both right kidney may represent intrarenal calculus. Other known intrarenal calculi are not as well visualized radiographically. Please refer to the renal ultrasound from today for more detailed findings. Evaluation today?UA?leukocytes: negative; blood: negative. Plan Vit B6 100mg daily, monitor kidney stones. Last visit: 10/02/2022? 51-year-old female followed for kidney stones here in fu post 24 hr urine PMhistory of psoriatic arthritis, Bradley's disease. s/p Left ureteral stent on 06/26/22.? s/p left ureteroscopy stone extraction, stent removal on 07/16/22? --? Discussed 24 hour urine results-Collected 09/06/22:? Total volume? 590? mL, Calcium? 142 mg; Oxalate? 17? mg, Sodium 113, Citrate? 437? mg.? Instructed on importance of fluid intake up to 2.5 liters important, Continue with Low oxalate diet, low sodium diet. Plan: follow up in 6months renal sono, KUB and repeat 24 hr urine Treatment course: s/p Left ureteral stent on 06/26/22.? s/p left ureteroscopy left distal stone extraction, stent removal on 07/16/22? Imaging: CT Abd/pelvis 06/23/22--KIDNEYS AND URETERS: A punctate obstructing stone is noted in the distal left ureter,? with with question of possible additional stone slightly distally? which results in mild proximal hydroureteronephrosis. Few additional punctate nonobstructing bilateral renal stones are also seen. Left renal hypodensity too small to characterize. (note s/p Left ureteral stent 06/26/22) 11/17/23- cont to monitor kidney stones. Cont Vit b6 100 mg daily. FU in one year. [facility] Medical History Nephrolithiasis Psoriatic arthritis Surgical History S/P cystoscopy with ureteral stent placement Family History Father No problems noted. Mother No problems noted. Social History Household Members: Spouse and Children Housing: House Do you presently have visiting nurse or other home services: No Alcohol intake: never Patient Tobacco Use Status: Never used Tobacco service: No Current occupational status: employed Review of Systems Const All systems reviewed & are unremarkable except as noted in HPI and below Reports no additional complaints Eyes Reports no additional complaints ENT Reports no additional complaints Card Reports no additional complaints Resp Reports no additional complaints GI Reports no additional complaints Reports as per HPI Musc Reports no additional complaints Skin/Breast Reports system reviewed and no additional complaints, except as documented Neuro Reports no additional complaints Psych Reports no additional complaints Endo Reports no additional complaints Yinka/Lymph Reports no additional complaints Aller/Immun Reports no additional complaints Results AMB Urinalysis, Automated UA Leukoctes 15 Yani/uL Last Edit by Essie Meyersmelo Meyers [facility] on 11/17/23 10:10 UA Nitrite Negative [facility], [facility] on 11/17/23 10: 10 UA Urobilinogen 0.2 mg/dL Last Edit [facility], [facility] on 4 10:10 UA Protein 15 mg/dL Last Edit [facility], [facility] on 11/17/23 10:1 0 UA pH 6.0 Last Edit by [facility], [facility] on 11/17/23 10:10 UA Blood 0 Rober/uL Last Edit by [facility], [facility] on 11/17/23 10:10 UA Specific [place] 1.030 Last Edit by [facility], [facility] on 10:10 UA Ketone Negative Last Edit by Essie Meyers [facility], [facility] on 11/17/23 10:1 0 UA Bilirubin 0 mg/dL Last Edit by [facility], [facility] on 11/17/23 10: 10 UA Glucose 0 mg/dL Last Edit [facility], [facility] on 11/17/23 10:10 Results Reviewed Results Reviewed: Laboratory Last Values Urine pH (Auto) 6.0 11/17/23 10:04 Specific [place] (Auto) 1.030 11/17/23 10:04 Urine Protein (Auto) 15 mg/dL 11/17/23 10:04 Glucose (UA)(Auto) 0 mg/dL 11/17/23 10:04 Urine Ketones (Auto) Negative 11/17/23 10:04 Urine Blood (Auto) 0 Rober/uL 11/17/23 10:04 Urine Nitrite (Auto) Negative 11/17/23 10:04 Urine Bilirubin (Auto) 0 mg/dL 11/17/23 10:04 Urine Urobilinogen (Auto) 0.2 mg/dL 11/17/23 10:04 Leukocyte Esterase (Auto) 15 Yani/uL 11/17/23 10:04 Date of Service: 11/03/23 EXAMINATION: US RETROPERITONEAL COMPLETE (RENAL) CLINICAL INFORMATION: Renal calculus. COMPARISON: Renal ultrasound from 02/27/2023. Abdomen CT from 06/23/2022. TECHNIQUE: Real-time imaging of the kidneys and bladder. FINDINGS: RIGHT KIDNEY: 12 x 5 x 5.1 cm (SAG x AP x TRV). 0.7 cm simple cyst of the interpolar region. No renal imaging follow-up is recommended for simple cyst. Questionable finding of a small 0.4 cm calyceal stone of the interpolar area. A calyceal stone in the upper pole measures up to 0.5 cm and is unchanged compared to 02/27/2023. No hydronephrosis. LEFT KIDNEY: 10.4 x 5.1 x 4.1 cm (SAG x AP x TRV). 1.1 cm simple cyst of the lower pole. No renal imaging follow-up recommended. 0.5 cm calyceal stone of the lower pole is unchanged compared to 02/27/2023. Also, there appears to be a small, approximately 0.3 cm stone in the interpolar area and possible 0.4 cm stone in the upper pole. No large calculi or hydronephrosis. A region of decreased echotexture at the posterior upper pole corresponds to site of chronic cortical thinning/atrophy seen on abdomen CT from 06/23/2022. BLADDER: Well distended and normal. Bilateral ureteral jets are demonstrated. Prevoid bladder volume is 170 mL. Postvoid bladder volume is 4 mL. IMPRESSION: * Again noted are small bilateral renal calculi. No large stones or hydronephrosis. * Urinary bladder is normal. Date of Service: 02/27/23 EXAMINATION: US RETROPERITONEAL LIMITED (RENAL ONLY) CLINICAL INFORMATION: Calculus of kidney. COMPARISON: X-ray abdomen KUB same date. CT abdomen and pelvis 06/23/2022. FINDINGS: RIGHT KIDNEY: 10.9 x 4.7 x 6.0 cm (SAG x AP x TRV). Medial midpole 0.5 cm cyst is difficult to characterize due to small size. There is a 0.7 cm upper pole and a 0.3 cm mid pole calculi. No hydronephrosis. Limited visualization. Renal cortical thickness is normal. LEFT KIDNEY: 10.4 x 4.6 x 4.4 cm (SAG x AP x TRV). Renal calculi measure 0.3 cm midpole, 0.6 cm lower pole and 0.6 cm lower pole. Renal cortical thickness is normal. No hydronephrosis. Limited visualization. There is a 1.2 x 1.1 x 1.1 cm cyst lower pole with benign features. There is no indication for follow-up imaging. IMPRESSION: Bilateral renal calculi. No hydronephrosis. Date of Service: 02/27/23 EXAMINATION: XR ABDOMEN KUB CLINICAL INDICATION: Calculus of kidney.? COMPARISON: Renal ultrasound performed today. CT scan of the abdomen and pelvis dated 06/23/2022.? FINDINGS: The bowel gas pattern is normal with no evidence of ileus or obstruction. A 0.3 cm radiopaque density overlies the upper pole the right kidney. Multiple phleboliths are seen overlying the inferior pelvis. Mild degenerative disc disease is seen at L3-L4 and L4-L5. L5-S1 is transitional with partial sacralization of L5 on the right side. IMPRESSION: 1.? 0.3 cm radiopaque density overlying of both right kidney may represent intrarenal calculus. Other known intrarenal calculi are not as well visualized radiographically. Please refer to the renal ultrasound from today for more detailed findings. Assessment & Plan Assessment & Plan (1) Bilateral kidney stones: Code(s): N20.0 - Calculus of kidney Category: Medical (2) Nephrolithiasis: Code(s): N20.0 - Calculus of kidney Category: Medical Plan cont to monitor kidney stones. Cont Vit b6 100 mg daily. FU in one year. Orders: Orders AMB Urinalysis Automated 11/17/23 R33.9 - Retention of urine, unspecified Patient Instructions: The patient had an opportunity to ask questions regarding treatment plan. The patient expressed understanding and agreement with the above treatment plan. The patient is aware they should contact our office by phone for worsening of their current condition or the appearance of new symptoms. Compliance is encouraged with any medications and followup testing that is ordered. It is a privilege to be allowed the opportunity to participate in the urologic care of your patient. If you have any questions or concerns regarding treatment for the above conditions please do not hesitate to contact me. The office telephone contact is [phone]. This note is constructed in part using voice recognition software. While every effort has been made to ensure accuracy oncology specialist errors may have been included. Yours sincerely, Hernando Davis MD Coding Level of Care Code Est Pt Level 3 (62643) Diagnoses Bilateral kidney stones N20.0 Nephrolithiasis N20.0
== END 2023-11-17 10:51 | disposition home or self-care (01) ==
PROVIDERS: PCP Internal Medicine; Visit Provider Urology
DX: N20.0 Calculus of kidney (principal)
CPT/HCPCS: 99213

== ENCOUNTER → 2023-11-17 09:54 | Outpatient (BNVA) | payer OTHER, SELFPAY | PROVIDERS: PCP Internal Medicine; Visit Provider Urology | DX: N20.0 Calculus of kidney (principal); R33.9 Retention of urine, unspecified | CPT/HCPCS: 81003 ==

== ENCOUNTER 2024-06-21 12:08 | Outpatient (REF) | payer OTHER, SELFPAY ==
--- NOTE | ~2024-06-21 | US_ITS ---
EXAMINATION: Screening Moderately CLINICAL INFORMATION: Flank pain, calculus of kidney, hydronephrosis, pyelonephritis. COMPARISON: 11/03/2023 ultrasound retroperitoneum ON 02/27/2023. TECHNIQUE: Real-time imaging of the kidneys and bladder. Limited visualization due to bowel gas. FINDINGS: RIGHT KIDNEY: 11.4 x 4.6 x 5.7 cm (SAG x AP x TRV). No hydronephrosis. 0.6 and 0.4 cm upper pole calculi. Renal cortical thickness is normal. Limited visualization. 0.8 cm mid pole cyst with benign features. There is no indication for follow-up imaging. LEFT KIDNEY: 9.8 x 4.7 x 4.2 cm (SAG x AP x TRV). No hydronephrosis. 0.8 and 0.5 cm lower pole calculi. 0.5 cm upper pole calculus. Renal cortical thickness is normal. Limited visualization. 1.2 cm lower pole cyst with benign features. There is no indication for follow-up imaging. US/US renal BI IMPRESSION: Bilateral nonobstructive renal calculi. No hydronephrosis. Electronically signed by: Dian Walker MD 06/22/2024 05:29 AM EDT
== END 2024-06-21 12:09 | disposition home or self-care (01) ==
LOC: HO.US 12:08
PROVIDERS: PCP Internal Medicine; Visit Provider Urology
DX: N20.0 Calculus of kidney (principal); N12 Tubulo-interstitial nephritis, not specified as acute or chronic; N13.30 Unspecified hydronephrosis; Z52.4 Kidney donor; R10.9 Unspecified abdominal pain
CPT/HCPCS: 76775

== ENCOUNTER 2024-11-08 10:07 | Outpatient (REF) | payer OTHER, SELFPAY ==
[2024-11-08 11:19] LABS: Estimated Average Glucose 111 mg/dL; Hemoglobin A1c % 5.5 % (<6.0); Total Hemoglobin (HGBA1C) 3449.3601 umol/L
[2024-11-08 11:41] LABS: Cholesterol 256 mg/dL (<200); HDL Cholesterol 45 mg/dL (>40); LDL Cholesterol Calculated 159 mg/dL (<100); Triglycerides 262 mg/dL (<150)
[2024-11-08 11:57] LABS: Free T4 (Free Thyroxine) 1.12 ng/dL (0.71-1.85); Thyroid Stimulating Hormone 26.25 uIU/mL (0.32-4.0)
[2024-11-09 04:28] LABS: Triiodothyronine T3 Free 2.5 pg/mL (2.3-4.2)
[2024-11-09 20:03] LABS: Thyroid Peroxidase Antibodies 562 IU/mL (<9)
== END 2024-11-08 10:08 | disposition home or self-care (01) ==
LOC: HO.LAB 10:07
PROVIDERS: PCP Internal Medicine; Visit Provider Physician Assistant
DX: E03.8 Other specified hypothyroidism (principal); Z13.6 Encounter for screening for cardiovascular disorders; Z13.1 Encounter for screening for diabetes mellitus
CPT/HCPCS: 36415; 80061; 83036; 84439; 84443; 84481; 86376

== ENCOUNTER 2024-11-27 10:39 | Outpatient (REF) | payer OTHER, SELFPAY ==
--- OUTSIDE RECORDS SUMMARY | 2024-11-27 10:43 | XMS_ITS | Data Portability ---
Author Organization [facility], Home Service Address [address] [place] [address] Assessment Encounter Date Assessment Date Assessment LastModified by Organization Details LastModified Time 10/08/2022 10/08/2022 Patient agreed and verbally consents to this audio and video Telehealth appt via a secure platform [email or web address] Not available 10/08/2022 15:23:37 Plan of Treatment Reminders Order Date Submit Date Provider Last Modified By Organization Details Last Modified Time Details Appointments None recorded. Lab lipid panel, blood 2024 025 [facility], [address] [place] [address], [address], 5 12:42:21 hemoglobi n A1c, QN, blood 2024 025 [facility], [address] [place] [address], [address], 5 12:42:21 TSH + free T4, serum 2024 025 [facility], [address] [place] [address], [address], 5 12:42:21 T3, free, serum or plasma 2024 025 [facility], [address] [place] [address], [address], 5 12:42:21 thyroid peroxidas e (tpo) Ab, serum 2024 025 [facility], [address] [facility], [place], [address], 5 13:01:11 CBC w/ auto diff 2021 022 [facility], [address] [facility], [place], [address], 2 09:50:25 TSH + free T4, serum 2021 022 [facility], [address] [facility] [facility], [place], [address], 2 12:26:25 TSH + free T4, serum 2019 020 [facility], [address] [facility], [address], [place], [address], 0 02:28:58 lipids, total, serum 2018 019 [facility], [address], [address], [place], [address], 9 08:18:35 vitamin D, 25-hydrox y, total, serum [address] [facility], [address], [address], [place], [address], 9 06:39:56 TSH + free T4, serum [address] [facility], [address], [address], [place], [address], 9 06:39:57 Referral gynecolog ist referral [address] Ildefonso Ruiz, [place], [address], 9 08:54:32 Procedures None recorded. Surgeries None recorded. Imaging US, thyroid 2019 020 [facility]IN Not available 0 15:08:49 electroca rdiogram 2018 019 lan [facility], [address], [place], [address], 9 15:09:25 exercise stress test 2018 019 [place], [address], 9 08:40:31 Medication Orders albuterol sulfate HFA 90 mcg/actua tion aerosol inhaler 2022 023 ODIN [id number], [address] [place], [address], 3 15:24:16 prednison e 10 mg tablet 2022 023 [email or web address] [id number], [address] [place], [address], 5 09:24:44 Patient TargetsNo targets recorded. Patient Instructions Encounter Date Encounter Id Patient Instructions Last Modified By Organization Details Last Modified Time 06/30/2019 [id number] methacholine challenge* [email or web address] Not available 07/28/2019 08:19:48 complete PFT* [email or web address] Not available 1 09/28/2018 08:19:48 learning about healthy weight Not available 06/30/2019 14:00:33 hypothyroidism: care instructions Not available 06/30/2019 14:00:33 Reason for Referral Hospice Volunteer Referral for Ad ult health examination Referring Physician: Dawna Long, Internal Medicine, Encounter Date: 06/30/2019 Results Created Date Observation Date Name Description Value Unit Range Abnormal Flag Note LastModifiedBy Organization Detail LastModifiedTime 06/30/20 19 06/30/2019 elect mateus pettitgr am Rate & Rhythm 59 sinus Not Available [facility] [address], [place], [address], 06/30/2019 14:09:29 06/30/20 19 06/30/2019 elect rocar diogr am QRS 98 ms Not Available [facility] [address], [place], [address], 06/30/2019 14:09:29 06/30/20 19 06/30/2019 elect rocar diogr am HI Interval 134 ms Not Available [facility] [address], [place], [address], 06/30/2019 14:09:29 06/30/20 19 06/30/2019 elect rocar diogr am QRS Duration 98 ms Not Available [facility] [address], [place], [address], 06/30/2019 14:09:29 06/30/20 19 06/30/2019 elect rocar diogr am QT Interval 420 Not Available [facility] [address], [place], [address], 06/30/2019 14:09:29 07/15/20 19 07/14/2019 MAMMO , scree [place], bilat eral No observ ation record ed. [address] [facility] [address] [place] [address], [address], 07/16/2019 10:16:44 07/15/20 19 07/14/2019 MAMMO , scree [place], bilat eral No observ ation record ed. [address] [facility] [address] [place] [address], [address], 07/16/2019 10:16:44 07/20/20 19 07/20/2019 MAMMO , diagn ostic , digit al, unila teral No observ ation record ed. [address] [facility] [address] [place] [address], [address], 07/20/2019 09:38:53 08/03/20 19 07/14/2019 exerc isecho encisos s test No observ ation record ed. [facility] [address] [place], [address], 08/04/2019 15:08:56 05/30/20 20 05/30/2020 US, thyro id No observ ation record ed. [facility] [address] [place], [address], 05/30/2020 16:34:31 10/08/19 22 10/05/2021 MAMMO , scree [place], digit al, bilat eral No observ ation record ed. [address] [place], [address], 10/08/2021 12:18:46 10/17/19 23 10/16/2022 MAMMO , scree [place], digit al, bilat eral No observ ation record ed. [email or web address] [address] [place], [address], 10/18/2022 08:19:07 11/03/19 24 11/03/2023 US, kidne y No observ [facility]ion [facility] ed. [facility] [address] [place], [address], 11/03/2023 12:21:42 11/20/19 24 11/12/2023 MAMMO , scree [place], digit al, bilat eral No observ ation record ed. [email or web address] [address] [place], [address], 11/20/2023 15:59:44 06/22/20 24 06/21/2024 US, renal No observ ation record ed. [email or web address] [facility] (Medical Records) [address] [place], [address], 06/22/2024 08:04:39 Result Notes None recorded. Problems Name Problem SNOMED Code Status Onset Date Resolution Date Notes Provider Name and Address Organization Details Recorded Time Hypothyroi dism 17609791 Active 2017 [facility] 8 11:31:58 Psoriasis with arthropath y Active 2017 Monae Blackburn, AARON, S [address] [place] [address], [address], [facility] 8 10:18:22 Wears bifocal glasses 468385703 Active 2018 [facility] KASEY Long [address] [place] [address], [address], [facility] 9 14:02:05 Body mass index 25-29 - overweight 151300091 Active 2018 Dawna KASEY Long [address] [place] [address], [address], [facility] 9 14:02:09 Vitamin D deficiency 94517341 Active 2018 Dawna KASEY Long [address] [place] [address], [address], [facility] 9 14:02:11 COVID-19 685250315 Active 2021 RENAE LEI [address] [place] [address], [address], [facility] 2 11:37:17 Calculus of kidney and ureter 773858675 Active 2021 RENAE LEI [address] [place] [address], [address], [facility] 2 09:10:40 Candidiasi s of mouth 36772972 Active 2021 RENAE LEI [address] [place] [address], [address], [facility] 2 16:19:34 Cough 74179445 Active 2022 RENAE LEI [address] [place], [address], [facility] 3 15:22:54 Sunburn of first degree 344098789 Active 2022 RENAE LEI [address] [place], [address], [facility] 3 15:49:15 Psoriasis 7602439 Active 2024 RENAE LEI [address] [place], [address], [facility] 5 09:32:36 Psoriatic arthritis 417488056 Active 2024 RENAE LEI [address] [place], [address], [facility] 5 09:33:17 Kidney stone 84198743 Active 2024 RENAE LEI [address] [place], [address], [facility] 5 09:35:58 Problem Notes None recorded. Procedures Surgical History Date Name Laterality Status Provider Name and Address Organization Details Recorded Time 07/09/20 13 Arthroscopic Surgery completed Kaila Rico [facility] 04/08/2018 11:30:35 Imaging Results Imaging Date Name Status LastModified by Organ [facility] Details LastModified Time 07/14/2019 MAMMO, screening, bilateral completed [address] [facility] [address] [place] [address], [address], 07/16/2019 10:16:44 07/14/2019 MAMMO, screening, bilateral completed [address] [facility] [address] [facility] [address] [place] [address], [address], 07/16/2019 10:16:44 07/20/2019 MAMMO, diagnostic, digital, unilateral completed [address] [facility] [address] [place] [address], [address], 07/20/2019 09:38:53 07/14/2019 exercise stress test completed [facility] [address] [place], [address], 08/04/2019 15:08:56 05/30/2020 [facility] [address], [address], 05/30/2020 16:34:31 10/05/2021 MAMMO, screening, digital, bilateral completed [facility] [address] [place], [address], 10/08/2021 12:18:46 10/16/2022 MAMMO, screening, digital, bilateral [facility] [address] [place], [address], 10/18/2022 08:19:07 11/03/2023 US, [facility] [address] [place], [address], 11/03/2023 12:21:42 11/12/2023 MAMMO, screening, digital, bilateral completed [email or web address] [address] [place], [address], 11/20/2023 15:59:44 06/21/2024 US, renal completed [email or web address] [facility] (Medical Records) [address] [place], [address], 06/22/2024 08:04:39 Procedure Notes None recorded. Medical Equipment None Reported. Allergies Allergen ID Allergen Name Allergen Category Reaction Reaction Severity Criticality Documentation Date Start Date Code Code System Note Provider Name and Address Organization Details Recorded Time 2153 Penicilli n Not available rash respirato ry distress moderate mild Not available 04/08/2018 44612 RxNorm [facility] 8 11:29:07 3575 Humira medicatio n rash Not available Not available 06/30/2019 95674 4 RxNorm sob Joanna velasquez [place] - [facility] 9 13:28:58 Medications Name Sig Start Date Stop Date Status Note LastModified by Organization Details LastModified Time celecoxib 200 mg capsule TAKE 1 TABLET TWICE A DAY WITH FOOD. REPLACE NABUMETON E. 11/08 completed Not Available Not Available Not Available cyclobenzap rine 10 mg tablet Take 1 tablet every day by oral route at bedtime. 06/30 completed Not Available Not Available Not Available silver sulfadiazin e 1 % topical cream APPLY A 1/16 INCH (1.5 MM) THICK LAYER TO ENTIRE BURN AREA BY TOPICALRO DEENA 2 TIMES PER DAY 11/08 completed Not Available Not Available Not Available nystatin 100,000 unit/mL oral suspension TAKE 5 ML BY MOUTH 4 TIMES A DAY FOR 7 DAYS 11/08 completed Not Available Not Available Not Available prednisone 10 mg tablet PLEASE SEE ATTACHED FOR DETAILED DIRECTION S 11/08 completed Not Available Not Available Not Available nabumetone 750 mg tablet TAKE 1 TABLET BY MOUTH TWICE A DAY WITH FOOD 11/08 completed Not Available Not Available Not Available azithromyci n 250 mg tablet TAKE 2 TABLETS BY MOUTH TODAY, THEN TAKE 1 TABLET DAILY FOR 4 DAYS DIRECTED 11/08 completed Not Available Not Available Not Available benzonatate 200 mg capsule TAKE 1 CAPSULE BY MOUTH THREE TIMES A DAY FOR 7 DAYS 11/08 completed Not Available Not Available Not Available meloxicam 15 mg tablet TAKE 1 TABLET BY MOUTH EVERY DAY 11/08 completed Not Available Not Available Not Available phenazopyri dine 200 mg tablet TAKE 1 TABLET ORALLY 3 TIMES A DAY FOR URINARY DISCOMFOR T TAKE WITH FOOD MAY CAUSE NAUSEA 11/08 completed Not Available Not Available Not Available prednisone 20 mg tablet TAKE 1 TABLET BY MOUTH EVERY DAY FOR 3 DAYS 11/08 completed Not Available Not Available Not Available prednisone 5 mg tablet PLEASE SEE ATTACHED FOR DETAILED DIRECTION S 11/08 completed Not Available Not Available Not Available triamcinolo ne acetonide 0.1 % topical cream APPLY THIN COAT TO AFFECTED AREA TWICE A DAY 11/08 completed Not Available Not Available Not Available TobraDex 0.3 %-0.1 % eye ointment 05/24 completed Not Available Not Available Not Available BD Tuberculin Syringe 1 mL 27 x 1/2 USE DIRECTED ONCE WEEKLY TO ADMINISTE R METHOREXA TE 11/08 completed Not Available Not Available Not Available oxycodone-a cetaminophe n 5 mg-325 mg tablet TAKE 1 TAB ORALLY EVERY 6 HOURS NEEDED FOR PAIN 11/08 completed Not Available Not Available Not Available methotrexat e sodium 2.5 mg tablet TAKE 4 TABLETS IN THE MORNING AND 4 TABLETS IN THE EVENING ONCE WEEKLY. active Not Available Not Available No t Available tamsulosin 0.4 mg capsule TAKE 1 CAPSULE BY MOUTH EVERY DAY AT BEDTIME FOR 14 DAYS 11/08 completed Not Available Not Available Not Available phenazopyri dine 100 mg tablet TAKE 1 TABLET BY MOUTH THREE TIMES A DAY FOR 5 DAYS 11/08 completed Not Available Not Available Not Available erythromyci n 5 mg/gram (0.5 %) eye ointment APPLY 1 CM RIBBON INTO THE LOWER CONJUNCTI GIULIANO SAC(S) IN THE AFFECTED EYE(S) BY OPHTHALMI C ROUTE 3 TIMES PER DAY 06/30 completed Not Available Not Available Not Available levothyroxi ne 125 mcg tablet TAKE 1 TABLET BY MOUTH EVERY DAY FOR 30 DAYS active Not Available Not Available No t Available pyridoxine (vitamin B6) 50 mg tablet TAKE 2 TABLETS BY MOUTH EVERY DAY 11/08 completed Not Available Not Available Not Available folic acid 1 mg tablet TAKE 1 TABLET DAILY active Not Available Not Available No t Available diclofenac sodium 50 mg tablet,poly yed release 05/24 completed Not Available Not Available Not Available levofloxaci n 500 mg tablet TAKE 1 TABLET BY MOUTH DAILY 07/10 completed Not Available Not Available Not Available methylpredn isolone 4 mg tablets in a dose pack TAKE 6 TABLETS ON DAY 1 DIRECTED ON PACKAGE AND DECREASE BY 1 TAB EACH DAY FOR A TOTAL OF 6 DAYS 11/08 completed Not Available Not Available Not Available albuterol sulfate HFA 90 mcg/actuati on aerosol inhaler INHALE 2 PUFFS EVERY 4 HOURS BY INHALATIO N ROUTE NEEDED active Not Available Not Available No t Available morphine 15 mg immediate release tablet TAKE 1 TAB 15 MG ORALLY EVERY 4 TO 6 HOURS NEEDED FOR PAIN 11/08 completed Not Available Not Available Not Available betamethaso ne dipropionat e 0.05 % lotion 05/24 completed Not Available Not Available Not Available doxycycline hyclate 100 mg tablet TAKE 1 TABLET BY MOUTH TWICE A DAY FOR 7 DAYS 11/08 completed Not Available Not Available Not Available levothyroxi ne 112 mcg tablet TAKE 1 TABLET BY MOUTH EVERY DAY (NEEDS APPT NO 90 DAY OR FULL MONTH SUPPLY active Not Available Not Available No t Available naproxen 375 mg tablet,poly yed release TWO TABS IN THE AM AND TWO TABS IN THE PM active Not Available Not Available No t Available metaxalone 800 mg tablet TAKE 1 TABLET BY MOUTH AT BEDTIME NEEDED FOR BACK PAIN 11/08 completed Not Available Not Available Not Available cyclosporin e 0.05 % eye drops in a dropperette INSTILL ONE DROP TO EACH EYE TWICE DAILY. 11/08 completed Not Available Not Available Not Available iron 325 mg qd active Not Available Not Veronica ilable Not Available diclofenac 1 % topical gel APPLY 2G TO AFFECTED AREA EVERY 4-6 HOURS NEEDED. 11/08 completed Not Available Not Available Not Available Vitamin D3 50 mcg (2,000 unit) tablet Take 1 tablet every day by oral route. active Not Available Not Available No t Available Stelara 45 mg/0.5 mL subcutaneou s syringe 11/08 completed Not Available Not Available Not Available Otezla 30 mg tablet Take 1 mg twice a day by oral route for 30 days. 11/08 completed Not Available Not Available Not Available Otezla Starter 10 mg (4)-20 mg (4)-30 mg(47) tablets in a dose pack 06/30 completed Not Available Not Available Not Available Cosentyx Pen 300 mg/2 pens (150 mg/mL) subcutaneou s pen injector 11/08 completed Not Available Not Available Not Available Xeljanz XR 11 mg tablet,exte nded release 11/08 completed Not Available Not Available Not Available Taltz Autoinjecto r 80 mg/mL subcutaneou s 80 mg SC q2wk x12wk active Not Available Not Available No t Available Humira(CF) Pen 40 mg/0.4 mL subcutaneou s kit 06/30 completed Not Available Not Available Not Available BinaxNOW COVID-19 Ag Self Test kit 11/08 completed Not Available Not Available Not Available Tyrvaya 0.03 mg/spray nasal spray APPLY ONE SPRAY TO EACH NOSTRIL TWICE DAILY. 11/08 completed Not Available Not Available Not Available molnupiravi r 200 mg capsule (EUA) TAKE 4 CAPSULES EVERY 12 HOURS BY ORAL ROUTE FOR 5 DAYS. 11/08 completed Not Available Not Available Not Available Vitals Date Recorded Body height Body mass index (BMI) Body weight Heart rate Oxygen saturation Oxygen saturation in Arterial blood by Pulse oximetry Provider Name and Address Organization Details Last Updated DateTime 9 157.48 cm 29.6 kg/m2 98828.5 3 g 66 /min 96 % 96 % Joanna Moore [facility] 9 13:32:03 Date Recorded Systolic blood pressure Diastolic blood pressure Provider Name and Address Organization Details Last Updated DateTime 06/30/2019 110 mm[Hg] 78 mm[Hg] KASEY Jaramillo [address] [place], [address] 06/30/2019 14:00:47 Date Recorded Body height Body mass index (BMI) Body weight Heart rate Oxygen saturation Oxygen saturation in Arterial blood by Pulse oximetry Systolic blood pressure Diastolic blood pressure Provider Name and Address Organization Details Last Updated DateTime 0 157.48 cm 29.9 kg/m2 81565.0 7 g 69 /min 98 % 98 % 120 mm[Hg] 70 mm[Hg] RENAE LEI [address] [place], [address], [facility] 0 09:39:48 Date Recorded Body weight Heart rate Oxygen saturation Oxygen saturation in Arterial blood by Pulse oximetry Systolic blood pressure Diastolic blood pressure Provider Name and Address Organization Details Last Updated DateTime 2 83844.3 g 83 /min 98 % 98 % 122 mm[Hg] 62 mm[Hg] Joan Gillespie [facility] 2 09:37:11 Date Recorded Body height Body mass index (BMI) Body weight Heart rate Oxygen saturation Oxygen saturation in Arterial blood by Pulse oximetry Systolic blood pressure Diastolic blood pressure Provider Name and Address Organization Details Last Updated DateTime 5 157.48 cm 33.3 kg/m2 18549.8 1 g 55 /min 96 % 96 % 128 mm[Hg] 82 mm[Hg] Chaim Arreola [facility] 5 09:27:12 Social History Question Answer Notes LastModified by Organizat ion Details LastModified Time Tobacco Smoking Status Never Smoker Kaila velasquez [facility] 04/08/2018 11:30:28 What Is Your Level Of Alcohol Consumption? None Information not available 04/08/2018 Are You Blind Or Do You Have Difficulty Seeing? No Information not available 04/08/2018 What Is Your Level Of Caffeine Consumption? None Information not available 04/08/2018 How Much Tobacco Do You Chew? None Information not available 04/08/2018 Are You Currently Employed? Yes Information not available 04/08/2018 Are You Deaf Or Do You Have Serious Difficulty Hearing? No Information not available 04/08/2018 What Type Of Diet Are You Following? REGULAR Information not available 04/08/2018 Do You Or Have You Ever Used E-cigarettes Or Vape? 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 No Information not available 04/08/2018 Hard Of Hearing Or Deaf In One Or Both Ears? No Information not available 07/10/2022 Live Alone Or With Others? With Others Information not available 07/10/2022 What Was The Date Of Your Most Recent Tobacco Screening? 11/08/2024 [email or web address] Information not available 11/08/2024 How Many Children Do You Have? 3 Information not available 04/08/2018 Performs Monthly Self-breast Exam? Yes Information not available 07/10/2022 Seat Belts Used Routinely Yes Information not available 07/10/2022 Are You Sexually Active? Yes Information not available 04/08/2018 Smoke Alarm In Home Yes Information not available 07/10/2022 Are You Passively Exposed To Smoke? No Information not available 04/08/2018 Do You Or Have You Ever Used Smokeless Tobacco? Never Used Smokeless Tobacco Information not available 07/10/2022 How Much Tobacco Do You Smoke? No Information not available 04/08/2018 General Stress Level Medium Information not available 07/10/2022 Do You Use Sunscreen Routinely? Yes Information not available 04/08/2018 How Many Years Have You Smoked Tobacco? 0 Information not available 06/30/2019 Sex: Unknown Functional Status Question Answer Note LastModified by Organizat ion Details LastModified Time Do you have difficulty walking or climbing stairs? Yes Information not available 04/08/2018 Are you able to walk? YESWOREST Information not available 04/08/2018 Do you have difficulty doing errands alone? No Information not available 04/08/2018 Are you able to care for yourself? Yes Information not available 04/08/2018 Do you have difficulty dressing or bathing? No Information not available 04/08/2018 Mental Status Question Answer Note LastModified by Organization D etails LastModified Time Do you have difficulty concentrating, remembering or making decisions? No Information no t available 04/08/2018 Family History Relationship Description Onset Age of this Age Resolved Age Notes LastModified by Organization Details LastModified Time Maternal Uncle Disorder of thyroid gland [email or web address] Not available 2017 11:31:20 Maternal Aunt Diabetes mellitus tbalicki Not available 2017 11:31:20 Mother Dementia 75 tbalicki Not available 04/08/2018 11:31:20 Mother Hypertensive disorder tbalicki Not available 2017 11:31:20 Mother Arthritis tbalicki Not availabl e 04/08/2018 11:31:20 Father Diabetes mellitus tbalicki Not available 2017 11:31:20 Father Heart disease 48 57 tbalicki Not available 2017 11:31:20 Father Myocardial infarction 57 tbalicki Not available 04/08 11:31:20 Unspecified Relation Diabetes mellitus 21 tbalicki Not available 2017 11:31:20 Unspecified Relation Diabetes mellitus 2 31 tbalicki Not available 2017 11:31:20 Brother Arthritis tbalicki Not availab le 04/08/2018 11:31:20 Brother Myocardial infarction 44 tbalicki Not available 04/08 11:31:20 Brother Myocardial infarction 45 tbalicki Not available 04/08 11:31:20 Brother Hypertensive disorder 42 tbalicki Not available 2017 11:31:20 Brother Diabetes mellitus 48 tbalicki Not available 2017 11:31:20 Brother Heart disease 42 tbalicki Not available 2017 11:31:20 Brother Heart disease 40 45 tbalicki Not available 2017 11:31:20 Brother Disorder of thyroid gland 50 tbalicki Not available 2017 11:31:20 Medical History Condition Response Coronary Artery Disease N Other N Gout N Blood Diseases N Kidney Stones N Blood Transfusion N Breast Cancer N Depression N COPD N Lung Disease N Defects or Inherited Disease N Anxiety Disorder N Muscle, Joint, or Bone Problems N Obesity N Vision or Eye Problems N Arthritis Y Polyps N Infertility N Mental Disorder N Cancer N Varicosities N Stroke N Endometriosis N Bladder or Kidney Problems N High Cholesterol N Liver Disease N Fibromyalgia N Headaches N Kidney Disease N Allergies/Hayfever N Heart Problems N Hospitalizations N Thyroid Problems Y GI Problems N Skin Problems N Eating Disorder N Anemia N MRSA exposure N Constipation N Mental Illness N Ovarian Cancer N Diabetes N Seizures/Epilepsy N Tuberculosis N Congestive Heart Failure (CHF) N Eczema N Diverticulitis N Abuse/Domestic Violence N Asthma N Reflux/GERD N Hepatitis N Heart Disease N Pulmonary Embolism N Hypertension N Osteoporosis N Chicken Pox N Autism Spectrum Disorder (ASD) N Gynecological History Statement/Question Response Abnormal Pap N Flow Moderate Date of LMP 03/17/2018 HPV Vaccine N Duration of Flow (days) 5 Age at Menarche 11 Current Control Method None Age at First Child 22 Frequency of Cycle (Q days) 27 Sexually Active? Y None Menses Monthly Y Sexual Problems? N LMP Definite N Obstetrics History GPAL:G 0 P 0 0 0 0 Immunizations Vaccine Type Date Status Note Provider Nam e and Address Organization Details Recorded Time COVID-19, mRNA, LNP-S, PF, 30 mcg/0.3 mL dose 10/06/2020 completed Kaila velasquez [facility] 03/27/2021 10:37:04 COVID-19, mRNA, LNP-S, PF, 30 mcg/0.3 mL dose 11/06/2020 completed Kaila velasquez [facility] 03/27/2021 10:37:09 Past Encounters Encounter ID Performer Location Encounter Start Date Encounter Closed Date Diagnosis/Indication Diagnosis SNOMED-CT Code Diagnosis ICD10 Code Diagnosis Note [id number] Monae Blackburn NP, [facility] [address] [facility], [place] [address] 04/08/2018 11:18:14 04/08/2018 13:33:50 Hypothyroidism 98392177 E03.9 Screening procedure 2012 5006 Z13.9 Anemia 693023521 D64.9 Adult [facility] th examination 376436002 Z00.00 Body mass index 25-29 - overweight 770437138 Z68.28 continue to track calories, try to decrease by 50 daily Multiple joint pain 3567 8005 M25.50 see's rheumatolo gy, ? seronegati ve RA, discuss dangers of chronic prednisone [id number] Monae Blackburn NP, [facility] [address] [facility], [place] [address] 10/14/2018 08:58:28 10/14/2018 09:41:48 Hordeolum externum of lower eyelid 493969968 H00.019 Psoriasis with arthropathy 67799894 L40.50 new to [facility], follow Vitamin D deficiency 347 15055 E55.9 await labs Hypothyroidism 10146528 E03.9 stable [id number] November KASEY Long [facility] [address] [facility], [place] [address] 06/30/2019 13:19:30 06/30/2019 15:09:25 Adult health examination 917021778 Z00.00 due for pap this year ES used to do paps Active or passive immunization 539134305 Z23 Body mass index 25-29 - overweight 816396497 Z68.29 Hypothyroidism 95344944 E03.9 Vitamin D deficiency 347 38102 E55.9 Atypical chest pain 1025 53976 R07.89 Dyspnea on exertion 6084 5006 R06.09 ? underlying asthma [id number] RENAE LEI [facility] [address] [facility] [place] [email or web address] [address] 05/24/2020 09:25:18 05/24/2020 10:02:00 Immunization due 894538583 Z23 will send in Hypothyroidism 55454808 E03.9 will check again and have thyroid checked as well [id number] RENAE LEI [facility] [address] [facility] [address], [place] [email or web address] [place] [address] 07/10/2022 09:28:27 07/10/2022 15:52:17 Calculus of kidney and ureter 410183302 N20.2 is following up with urology in a few weeksjust saw them on Friday Acute urin luiza tract infection 282917190 N10 will recheck her CBC to see if her WBC has gone back Hypothyroidism 70918768 E03.8 will check again for patient; reports that she had it done 6 mos ago [id number] RENAE LEI [facility] [address] [facility] [address] 10/08/2022 11:16:39 10/09/2022 08:28:15 Cough 99870521 R05.1 [id number] RENAE LEI [facility] [address] [facility],[place] [address] 11/08/2024 09:17:09 11/08/2024 10:42:27 Kidney stone 64943300 N20.0 stable Hypothyroidism 50916400 E03.8 will check again for patient; reports that she had it done 6 mos ago Psoriasis 7883725 L40.8 stable Psoriatic arthritis 1563 95104 L40.53 stable Screening for cardiovascular system disease 599383679 Z13.6 needs recheck Health Concerns Section Related Observation LastModified by Organization Detai ls LastModified Time None Recorded Concern Status LastModified by Organization Details LastModified Time None Recorded Advance Directives Directive None Recorded Payers Encounter Date Sequence Insurance Name Policy Number Policy Ervin Covered Member ID Ervin Member ID Guarantor Name 06/30/2019 1 [facility] [id number] Joan Merrill [id number] 2 Joan Westc 05/24/2020 1 [facility] [id number] Joan Seelerc [id number] 2 Joan Seelerc 07/10/2022 1 [facility] [id number] Joan Seelerc [id number] 2 Joan Seelerc 10/08/2022 1 [facility] [id number] Joan Seelerc [id number] 2 Joan Henderson Desirae 11/08/2024 1 [facility] [id number] Joan Seelerc [id number] 2 Joan Merrill Notes Date Note Type Note Provider Name a nd Address Organization Details Recorded Time 9 text/html Annual WellnessReported bypatient.Diet and Nutrition:healthy diet Fracture Risk:no recent explained fracture; no sudden unexplained fractures; no previous musculoskeletal injuries;history of fractures Physical Activity:does not exercise on a regular basis Additional Lifestyle Factors:no tobacco use; no alcohol intake Depression Risk:never feels sad, empty, or tearful; no loss of interest in activities; no significant changes in weight; no sleep disturbances or insomnia; no agitation; no loss of energy; no feelings of worthlessness or guilt; no thoughts of suicide; no history of depression; no history of mood disorders Hearing:no loss of hearing Vision:no vision problems chest pain/sob - for the past year or so. happened while on vacation, struggling to go up stairs. hasn't gotten any worse. sob only with exertion. chest pressure is intermittent can happen at rest as well. feels like cramp, but is not painful to touch. has strong family history of heart disease, with early DE, and numerous CAD Dawna KASEY Long [address] [place] [address], [place], [address], [place] [facility] 06/30/2019 14:26:17 0 text/html TSH the patient reports that she had her TSH at her rheum office after telling her dr. she was having hot flashes or intolerance to heat her TSH was low at 0.35 no T4 done will recheck with my lab including T4 and also a US of thyroid because she has never really had to change her medication dose and with adjustments to rheum meds want to rule out any underlying patho with actual thyroid gland no fever, no sob, no cough, no abdominal pain, no chest pain RENAE LEI [address] [place], [address], [facility] 05/24/2020 09:58:56 2 text/html Hospital F/U patient was admitted to the hospital following kidney stone, acute UTI, acute AKIthe patient imaging revealed left kidney stone obstructing the left ureterdevelopment of hydronephrosis and subsequent MILLIE patient treated with IV fluids, abx and flomaxadmitted for monitoring d/c with improvement in pain level, UTI treated and urology fu noted in d/c plan patient has a brother who has also suffered from kidney stonesso possible genetic predisposition to forming them CT also picked up small lung nodule in the right lung base; per guidelines and lack of smoking history f/u is not needednodule is benign TODAY: the patient has surgical intervention needed to remove the stentthe patient saw urology on Friday for monitoring the patient had a stent placednotices some pain residual from the stent (the patient has has been seen three times in the ER before she was admitted and started on IV abx) denies any fever, chills, nausea, vomitingmild spasms in the left side due to the stent RENAE LEI [address] [place], [address], [facility] 07/10/2022 09:50:41 3 text/html c/o URI telemed phone callpt consents to phone call the patient reports for the last few weeks that she has had an URIthe patient reports dry cough, persistantworse with dry coughthe patient did have COVID back this summerthe patient most likely had a cold, with lingering symptoms for lungs that are compromised for her covid infection start back on inhaler and steroid tapercall back with update RENAE LEI [address] [place], [address], [facility] 10/08/2022 15:27:01 5 text/html medication check the patient is seeing Dr. Gan at [facility] for rheumatologistshe was previously on alt meds, stopped the meloxicam the patient is getting worsening headaches, rheum starts that she is getting the due to the arthritisthe patient is doing okay with the new meds, no side effectswill f/u with her in 3 mos the patient reports that she is seeing the urologist as well for kidney stonesdid have one in July she passed, still has about 5 or so left the patient is otherwise doing well needs thyroid rechecked RENAE LEI [address] [place] [address], [place], [address], [place] [facility] 11/08/2024 09:44:17 OBGyn Episode No OBEpisode recorded.
[2024-11-27 12:09] LABS: Free T4 (Free Thyroxine) 1.77 ng/dL (0.71-1.85); Thyroid Stimulating Hormone 0.11 uIU/mL (0.32-4.0)
== END 2024-11-27 10:40 | disposition home or self-care (01) ==
LOC: HO.LAB 10:39
PROVIDERS: PCP Internal Medicine; Visit Provider Physician Assistant
DX: E03.8 Other specified hypothyroidism (principal)
CPT/HCPCS: 36415; 84439; 84443

== ENCOUNTER 2024-12-11 08:42 | Outpatient (REF) | payer OTHER, SELFPAY ==
[2024-12-11 09:36] LABS: Estimated Average Glucose 117 mg/dL; Hemoglobin A1C 123.7982 umol/L; Hemoglobin A1c % 5.7 % (<6.0); Total Hemoglobin (HGBA1C) 3195.3769 umol/L
[2024-12-11 09:47] LABS: Cholesterol 216 mg/dL (<200); HDL Cholesterol 41 mg/dL (>40); LDL Cholesterol Calculated 143 mg/dL (<100); Triglycerides 163 mg/dL (<150)
[2024-12-11 09:58] LABS: Free T4 (Free Thyroxine) 1.48 ng/dL (0.71-1.85)
[2024-12-12 11:29] LABS: Triiodothyronine T3 Free 2.5 pg/mL (2.3-4.2)
[2024-12-13 18:49] LABS: Thyroid Peroxidase Antibodies 502 IU/mL (<9)
== END 2024-12-11 08:43 | disposition home or self-care (01) ==
LOC: HO.LAB 08:42
PROVIDERS: Physician Assistant; PCP Internal Medicine; Visit Provider Internal Medicine
DX: E03.8 Other specified hypothyroidism (principal); Z13.6 Encounter for screening for cardiovascular disorders; Z13.1 Encounter for screening for diabetes mellitus
CPT/HCPCS: 36415; 80061; 83036; 84439; 84443; 84481; 86376

== ENCOUNTER 2024-12-16 14:06 | Outpatient (REF) | payer OTHER, SELFPAY ==
--- NOTE | ~2024-12-16 | US_ITS ---
EXAMINATION: US THYROID HISTORY: THYROIDITIS TECHNIQUE: Real-time grayscale ultrasound imaging was performed and images were reviewed. COMPARISON: There are no prior studies for comparison. FINDINGS: SIZE: The right thyroid lobe measures 3.0 x 1.1 x 1.1 cm. The left thyroid lobe measures 3.0 x 1.1 x 1.1 cm. The isthmus measures 2 mm. FLOW: Flow to the gland is normal. ECHOGENICITY: The echotexture of the gland is heterogeneous. NODULES: A right-sided nodule is identified as described below: Nodule #: 1 Location: Midportion of the right thyroid lobe measuring 4 x 3 x 3 mm. Shape: Wider than tall (0 points) Margins: Smooth (0 points) Echotexture: Hyperechoic (1 point) Composition: Solid (2 points) Calcifications: None (0 points) Total points: 3 TIRADS: TR3: Mildly suspicious. US/US thyroid IMPRESSION: Small, heterogeneous thyroid gland initiating a single subcentimeter nodule on the right. ACR TI-RADS Guidelines TR1 (0 points): Benign, No follow-up or biopsy required TR2 (2 points): Not Suspicious, No biopsy or follow up indicated TR3 (3 points): Mildly Suspicious, FNA if >= 2.5 cm, Follow if >= 1.5 cm TR4 (4-6 points): Moderately Suspicious, FNA if >= 1.5 cm, Follow if >= 1.0 cm TR5 (>=7 points): Highly Suspicious, FNA if >= 1.0 cm, Follow if >= 0.5 cm Electronically signed by: Prakash Stacy MD 12/17/2024 03:28 PM EDT
--- OUTSIDE RECORDS SUMMARY | 2024-12-16 16:35 | XMS_ITS | Data Portability ---
Author Organization [facility] Home Service Address [address] [place] [address] Assessment Encounter Date Assessment Date Assessment LastModified by Organization Details LastModified Time 10/08/2022 10/08/2022 Patient agreed and verbally consents to this audio and video Telehealth appt via a secure platform [email or web address] Not available 10/08/2022 15:23:37 Plan of Treatment Reminders Order Date Submit Date Provider Last Modified By Organization Details Last Modified Time Details Appointments None recorded. Lab lipid panel, blood 2024 025 [facility], [address] [place] [address], [id number], 5 12:42:21 hemoglobi n A1c, QN, blood 2024 025 [facility], [address] [place] [address], [address], 5 12:42:21 TSH + free T4, serum 2024 025 [facility], [address] [place] [address], [address], 5 12:42:21 T3, free, serum or plasma 2024 025 [facility], [address] [place] [address], [address], 5 12:42:21 thyroid peroxidas e (tpo) Ab, serum 2024 025 [facility], [address] [facility], [place], [address], 5 13:01:11 CBC w/ auto diff 2021 022 [facility], [address] [facility], [place], [address], 2 09:50:25 TSH + free T4, serum 2021 022 [facility], [address] [facility], [place], [address], 2 12:26:25 TSH + free T4, serum 2019 020 [facility], [address], [place], [address], 0 02:28:58 lipids, total, serum 2018 019 [facility], [address], [place], [address], 9 08:18:35 vitamin D, 25-hydrox y, total, serum 2018 019 [facility], [address], [place], [address], 9 06:39:56 TSH + free T4, serum 2018 019 [facility], [address], [place], [address], 9 06:39:57 Referral gynecolog ist referral [address] Ildefonso Ruiz, [place], [address], 9 08:54:32 Procedures None recorded. Surgeries None recorded. Imaging US, thyroid 2019 020 ODIN Not available 0 15:08:49 electroca rdiogram 2018 019 lan [facility], [address], [place], [address], 9 15:09:25 exercise stress test 2018 019 [place], [address], 9 08:40:31 Medication Orders albuterol sulfate HFA 90 mcg/actua tion aerosol inhaler 2022 023 ODIN [id number], [address] [place], [address], 3 15:24:16 prednison e 10 mg tablet 2022 023 [email or web address] [id number], [address] [place], [address], 5 09:24:44 Patient TargetsNo targets recorded. Patient Instructions Encounter Date Encounter Id Patient Instructions Last Modified By Organization Details Last Modified Time 06/30/2019 [id number] methacholine challenge* [email or web address] Not available 07/28/2019 08:19:48 complete PFT* [email or web address] Not available 1 09/28/2018 08:19:48 learning about healthy weight Not available 06/30/2019 14:00:33 hypothyroidism: care instructions Not available 06/30/2019 14:00:33 Reason for Referral Leaf Tinner Referral for Ad ult health examination Referring Physician: Dawna Long, Internal Medicine, Encounter Date: 06/30/2019 Results Created Date Observation Date Name Description Value Unit Range Abnormal Flag Note LastModifiedBy Organization Detail LastModifiedTime 06/30/20 19 06/30/2019 elect mateus pettitgr am Rate & Rhythm 59 sinus Not Available [facility] [address], [place], [address], 06/30/2019 14:09:29 06/30/20 19 06/30/2019 elect rocar diogr am QRS 98 ms Not Available [facility] [address], [place], [address], 06/30/2019 14:09:29 06/30/20 19 06/30/2019 elect rocar diogr am SD Interval 134 ms Not Available [facility] [address], [place], [address], 06/30/2019 14:09:29 06/30/20 19 06/30/2019 elect rocar diogr am QRS Duration 98 ms Not Available [facility] [address], [place], [address], 06/30/2019 14:09:29 06/30/20 19 06/30/2019 elect rocar diogr am QT Interval 420 Not Available [facility] [address], [place], [address], 06/30/2019 14:09:29 07/15/20 19 07/14/2019 MAMMO , scree [place], bilat eral No observ ation record ed. [address] [facility] [address] [place] [address], [address], 07/16/2019 10:16:44 07/15/20 19 07/14/2019 MAMMO , scree [place], bilat eral No observ ation record ed. [address] [facility] [address] [place] [address], [address], 07/16/2019 10:16:44 07/20/20 19 07/20/2019 MAMMO , diagn ostic , digit al, unila teral No observ ation record ed. [address] [facility] [address] [place] [address], [address], 07/20/2019 09:38:53 08/03/20 19 07/14/2019 exerc isecho necisos s test No observ ation record ed. [facility] [address] [place], [address], 08/04/2019 15:08:56 05/30/20 20 05/30/2020 US, thyro id No observ ation record ed. [facility] [address] [place], [address], 05/30/2020 16:34:31 10/08/19 22 10/05/2021 MAMMO , scree [place], digit al, bilat eral No observ ation record ed. [address] [place], [address], 10/08/2021 12:18:46 10/17/19 23 10/16/2022 MAMMO , scree [place], digit al, bilat eral No observ ation record ed. [email or web address] [address] [place], [address], 10/18/2022 08:19:07 11/03/19 24 11/03/2023 US, kidne y No observ ation [facility] ed. [facility] [address] [place], [address], 11/03/2023 12:21:42 11/20/19 24 11/12/2023 MAMMO , scree [place], digit al, bilat eral No observ ation record ed. [email or web address] [address] [place], [address], 11/20/2023 15:59:44 06/22/20 24 06/21/2024 US, renal No observ ation record ed. [email or web address] [facility] (Medical Records) [address] [place], [address], 06/22/2024 08:04:39 Result Notes None recorded. Problems Name Problem SNOMED Code Status Onset Date Resolution Date Notes Provider Name and Address Organization Details Recorded Time Hypothyroi dism 10532318 Active 2017 [facility] 8 11:31:58 Psoriasis with arthropath y Active 2017 Monae Blackburn, AARON, S [address] [place] [address], [address], [facility] 8 10:18:22 Wears bifocal glasses 234966248 Active 2018 [facility] KASEY Long [address] [place] [address], [address], [facility] 9 14:02:05 Body mass index 25-29 - overweight 302546064 Active 2018 Dawna KASEY Long [address] [place] [address], [address], [facility] 9 14:02:09 Vitamin D deficiency 17908268 Active 2018 Dawna AKSEY Long [address] [place] [address], [address], [facility] 9 14:02:11 COVID-19 568710149 Active 2021 RENAE LEI [address] [place] [address], [address], [facility] 2 11:37:17 Calculus of kidney and ureter 057421466 Active 2021 RENAE LEI [address] [place] [address], [address], [facility] 2 09:10:40 Candidiasi s of mouth 19044829 Active 2021 RENAE LEI [address] [place] [address], [address], [facility] 2 16:19:34 Cough 89149005 Active 2022 RENAE LEI [address] [place], [address], [facility] 3 15:22:54 Sunburn of first degree 494352100 Active 2022 RENAE LEI [address] [place], [address], [facility] 3 15:49:15 Psoriasis 1588459 Active 2024 RENAE LEI [address] [place], [address], [facility] 5 09:32:36 Psoriatic arthritis 030494064 Active 2024 RENAE LEI [address] [place], [address], [facility] 5 09:33:17 Kidney stone 90649182 Active 2024 RENAE LEI [address] [place], [address], [facility] 5 09:35:58 Thyroiditi s 42490782 Active 2024 RENAE LEI [address] [place] [address], [address], [facility] 5 14:48:45 Problem Notes None recorded. Procedures Surgical History Date Name Laterality Status Provider Name and Address Organization Details Recorded Time 07/09/20 13 Arthroscopic Surgery completed Kaila Rico [facility] 04/08/2018 11:30:35 Imaging Results Imaging Date Name Status LastModified by [email or web address] Details LastModified Time 07/14/2019 MAMMO, screening, bilateral completed [address] [facility] [address] [place] [address], [address], 07/16/2019 10:16:44 07/14/2019 MAMMO, screening, bilateral completed [address] [facility] [address] [place] [address], [address], 07/16/2019 10:16:44 07/20/2019 MAMMO, diagnostic, digital, unilateral completed [address] [facility] [address] [place], [address], 07/20/2019 09:38:53 07/14/2019 exercise stress test completed [address] [facility] [address] [place] [address], [address], 08/04/2019 15:08:56 05/30/2020 US, thyroid completed [address], [address], 05/30/2020 16:34:31 10/05/2021 MAMMO, screening, digital, bilateral completed [address] [place], [address], 10/08/2021 12:18:46 10/16/2022 MAMMO, screening, digital, bilateral completed [email or web address] [address] [place], [address], 10/18/2022 08:19:07 11/03/2023 US, kidney completed [facility] (Medical Records) [address] [place] [address], [address], 11/03/2023 12:21:42 11/12/2023 MAMMO, screening, digital, bilateral completed [email or web address] [address] [place], [address], 11/20/2023 15:59:44 06/21/2024 US, renal completed [email or web address] [facility] (Medical Records) [address] [place] [address], [address], 06/22/2024 08:04:39 Procedure Notes None recorded. Medical Equipment None Reported. Allergies Allergen ID Allergen Name Allergen Category Reaction Reaction Severity Criticality Documentation Date Start Date Code Code System Note Provider Name and Address Organization Details Recorded Time 2153 Penicilli n Not available rash respirato ry distress moderate mild Not available 04/08/2018 60390 RxNorm Kaila Rico eva [facility] 8 11:29:07 3575 Humira medicatio n rash Not available Not available 06/30/2019 93062 4 RxNorm issa Moore eva [facility] 9 13:28:58 Medications Name Sig [...] LAYER TO ENTIRE BURN AREA BY TOPICALRO [place] 2 TIMES PER DAY 11/08 completed Not [...] methotrexat e sodium 2.5 mg tablet TAKE 8 TABS (20 MG TOTAL)ONC E A WEEK SPLIT DOSE MORNING AND EVENING ONCE A WEEK MAX 30 DAYS SUPPLY active Not Available Not Available No [...] Not Available levothyroxi ne 125 mcg tablet Take 1 tablet every day by oral route as directed for 30 days. 2024 active Not Available Not Available Not Avai lable pyridoxine (vitamin B6) 50 mg tablet TAKE 2 TABLETS BY MOUTH EVERY DAY 11/08 completed Not Available Not Available Not Available folic acid 1 mg tablet TAKE 1 TABLET BY MOUTH EVERY DAY active Not Available Not Available No t [...] NO 90 DAY OR FULL MONTH SUPPLY 11/29 completed Not Available Not Available Not Available naproxen 375 mg tablet,poly yed release [...] completed Not Available Not Available Not Available [employer] r 80 mg/mL subcutaneou s 80 [...] Updated DateTime 9 157.48 cm 29.6 kg/m2 79895.5 3 g 66 /min 96 % 96 % Joanna Moore [facility] 9 13:32:03 Date Recorded Systolic blood pressure Diastolic blood pressure Provider Name and Address Organization Details Last Updated DateTime 06/30/2019 110 mm[Hg] 78 mm[Hg] November KASEY Long [address] [place], [address], [facility] 06/30/2019 14:00:47 Date Recorded Body height Body mass index (BMI) Body weight Heart rate Oxygen saturation Oxygen saturation in Arterial blood by Pulse oximetry Systolic blood pressure Diastolic blood pressure Provider Name and Address Organization Details Last Updated DateTime 0 157.48 cm 29.9 kg/m2 12743.0 7 g 69 /min 98 % 98 % 120 mm[Hg] 70 mm[Hg] RENAE LEI [address] [place], [address], [facility] 0 09:39:48 Date Recorded Body weight Heart rate Oxygen saturation Oxygen saturation in Arterial blood by Pulse oximetry Systolic blood pressure Diastolic blood pressure Provider Name and Address Organization Details Last Updated DateTime 2 89903.3 g 83 /min 98 % 98 % 122 mm[Hg] 62 mm[Hg] Joan Castrobecky [facility] 2 09:37:11 Date Recorded Body height Body mass index (BMI) Body weight Heart rate Oxygen saturation Oxygen saturation in Arterial blood by Pulse oximetry Systolic blood pressure Diastolic blood pressure Provider Name and Address Organization Details Last Updated DateTime 5 157.48 cm 33.3 kg/m2 20676.8 1 g 55 /min 96 % 96 % 128 mm[Hg] 82 mm[Hg] Chaim [place] [facility] 5 09:27:12 Social History Question Answer Notes LastModified by Organizat ion Details LastModified Time Tobacco Smoking Status Never Smoker [facility] 04/08/2018 11:30:28 What Is Your [...] available 07/10/2022 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 Information not available 04/08/2018 Are There Any [...] Artery Disease N Other N Gout N Kidney Stones N Blood Diseases N Breast Cancer N Blood Transfusion N Depression N COPD N Lung Disease N Defects or Inherited Disease N Anxiety Disorder N Muscle, Joint, or Bone Problems N Obesity N Vision or Eye Problems N Arthritis Y Polyps N Infertility N Mental Disorder N Cancer N Varicosities N Stroke N Endometriosis N Bladder or Kidney Problems N High Cholesterol N Liver Disease N Headaches N Fibromyalgia N Kidney Disease N Allergies/Hayfever N Heart [...] Disease N Pulmonary Embolism N Hypertension N Chicken Pox N Autism Spectrum Disorder (ASD) N Osteoporosis N Gynecological History Statement/Question Response Abnormal Pap [...] mcg/0.3 mL dose 10/06/2020 completed Kaila velasquez [facility] 03/27/2021 10:37:04 COVID-19, mRNA, LNP-S, PF, 30 mcg/0.3 mL dose 11/06/2020 completed Kaila velasquez [facility] 03/27/2021 10:37:09 Past Encounters Encounter ID Performer Location Encounter Start Date Encounter Closed Date Diagnosis/Indication Diagnosis SNOMED-CT Code Diagnosis ICD10 Code Diagnosis Note [id number] Monae Blackburn NP, S [facility] [address] [facility],[place] [address] 04/08/2018 11:18:14 04/08/2018 13:33:50 Hypothyroidism 86150235 E03.9 Screening procedure 2012 5006 Z13.9 Anemia 978196688 D64.9 Adult heal th examination 608403581 Z00.00 Body mass index 25-29 - overweight 624602751 Z68.28 continue to track calories, try to decrease by 50 daily Multiple joint pain 3567 8005 M25.50 see's rheumatolo gy, ? seronegati ve RA, discuss dangers of chronic prednisone [id number] Monae Blackburn NP, S [facility] [address] [facility],[place] [address] 10/14/2018 08:58:28 10/14/2018 09:41:48 Hordeolum externum of lower eyelid 371064811 H00.019 Psoriasis with arthropathy 74615921 L40.50 new to Wendy, follow Vitamin D deficiency 347 43971 E55.9 await labs Hypothyroidism 03781906 E03.9 stable [id number] November KASEY Long [facility] [address] [facility] [address], [place] [address] 06/30/2019 13:19:30 06/30/2019 15:09:25 Adult health examination 637787276 Z00.00 due for pap this year ES used to do paps Active or passive immunization 585289154 Z23 Body mass index 25-29 - overweight 478588481 Z68.29 Hypothyroidism 41353867 E03.9 Vitamin D deficiency 347 59755 E55.9 Atypical chest pain 1025 58479 R07.89 Dyspnea on exertion 6084 5006 R06.09 ? underlying asthma [id number] RENAE LEI [facility] [address] [facility] [address] 05/24/2020 09:25:18 05/24/2020 10:02:00 Immunization due 557124498 Z23 will send in Hypothyroidism 81963086 E03.9 will check again and have thyroid checked as well [id number] RENAE LEI Internal [facility] [address] [facility], [address] [facility] [place] [address] 07/10/2022 09:28:27 07/10/2022 15:52:17 Calculus of kidney and ureter 173535395 N20.2 is following up with urology in a few weeksjust saw them on Friday Acute urin luiza tract infection 661675640 N10 will recheck her CBC to see if her WBC has gone back Hypothyroidism 46400049 E03.8 will check again for patient; reports that she had it done 6 mos ago [id number] RENAE LEI [facility] [address] [facility], [address] [facility] [place] [address] 10/08/2022 11:16:39 10/09/2022 08:28:15 Cough 57645018 R05.1 [id number] RENAE LEI [facility] [address] [facility] [address] [address] 11/08/2024 09:17:09 11/08/2024 10:42:27 Kidney stone 44872279 N20.0 stable Hypothyroidism 07437402 E03.8 will check again for patient; reports that she had it done 6 mos ago Psoriasis 0071904 L40.8 stable Psoriatic arthritis 1563 54024 L40.53 stable Screening for cardiovascular system disease 065567819 Z13.6 needs recheck Health Concerns Section Related Observation LastModified by Organization Detai ls LastModified Time None Recorded Concern Status LastModified by Organization Details LastModified Time None Recorded Advance Directives Directive None Recorded Payers Encounter Date Sequence Insurance Name Policy Number Policy Ervin Covered Member ID Ervin Member ID Guarantor Name 06/30/2019 1 [facility] [id number] Joan Desirae [id number] 2 Joan Henderson Desirae 05/24/2020 1 [facility] [id number] Joan Desirae [id number] 2 Joan Henderson Desirae 07/10/2022 1 [facility] [id number] Joan Desirae [id number] 2 Joan Henderson Desirae 10/08/2022 1 [facility] [id number] Joan Desirae [id number] 2 Joan Henderson Desirae 11/08/2024 1 [facility] [id number] Joan Desirae [id number] 2 Joan Henderson Desirae Notes Date Note Type Note Provider Name [...] family history of heart disease, with early [place], and numerous CAD November KASEY Long [address] [place] [address], [place], [address], [facility] 06/30/2019 14:26:17 0 text/html TSH [...] pain, no chest pain RENAE LEI [address] [place], [address], [facility] 05/24/2020 09:58:56 2 text/html Hospital [...] due to the stent RENAE LEI [address] [place], [address], [facility] 07/10/2022 09:50:41 3 text/html c/o [...] tapercall back with update RENAE LEI [address] [place], [address], [facility] 10/08/2022 15:27:01 5 text/html medication check the patient [place] [facility] [place] on alt meds, [...] doing well needs thyroid rechecked RENAE LEI [address] [place], [address], [facility] 11/08/2024 09:44:17 OBGyn Episode No OBEpisode recorded.
== END 2024-12-16 14:07 | disposition home or self-care (01) ==
LOC: HO.US 14:06
PROVIDERS: PCP Internal Medicine; Visit Provider Physician Assistant
DX: E06.9 Thyroiditis, unspecified (principal); E04.1 Nontoxic single thyroid nodule
CPT/HCPCS: 76536

== ENCOUNTER → 2024-12-16 14:30 | Outpatient (BNV) | payer OTHER, SELFPAY | PROVIDERS: PCP Internal Medicine; Visit Provider Radiology Diagnostic Radiology | DX: E04.1 Nontoxic single thyroid nodule (principal) | CPT/HCPCS: 76536 ==

== ENCOUNTER 2025-01-28 11:30 | Outpatient (REF) | payer OTHER, SELFPAY ==
--- OUTSIDE RECORDS SUMMARY | 2025-01-28 12:15 | XMS_ITS | Data Portability ---
Author Organization [facility], Telehealth Patient Home Address [address] [place] [address] Assessment Encounter Date Assessment Date Assessment LastModified by Organization Details LastModified Time 10/08/2022 10/08/2022 Patient agreed and verbally consents to this audio and video Telehealth appt via a secure platform [email or web address] Not available 10/08/2022 15:23:37 01/04/2025 01/04/2025 Patient agreed and verbally consents to this audio and video Telehealth appt via a secure platform [email or web address] Not available 01/04/2025 14:58:35 Plan of Treatment Reminders Order Date Submit Date Provider Last Modified By Organization Details Last Modified Time Details Appointments None recorded. Lab lipid panel, blood 2024 025 [facility], [address] [place] [address], [address], 5 12:42:21 hemoglobin A1c, QN, blood 2024 025 [facility], [address] [place] [address], [address], 5 12:42:21 TSH + free T4, serum 2024 025 [facility], [address] [place] [address], [address], 5 12:42:21 T3, free, serum or plasma 2024 025 [facility], [address] [place] [address], [place], [address], 5 12:42:21 thyroid peroxidase (tpo) Ab, serum 2024 025 [facility], [address] [place] [address], [place], [address], 5 13:01:11 CBC w/ auto diff 2021 022 [facility], [address] [place] [address], [address], 2 09:50:25 TSH + free T4, serum 2021 022 [facility], [address] [place] [address], [address], 2 12:26:25 TSH + free T4, serum 2019 020 [facility], [address] [facility], [address], [place], [address], 0 02:28:58 Referral None recorded. Procedures None recorded. Surgeries None recorded. Imaging US, thyroid 2019 020 [place] Not available 0 15:08:49 Medication Orders prednisone 10 mg tablet 2024 025 [facility]/Pharmacy #[id number], [address] [place], [address], 5 15:00:37 albuterol sulfate HFA 90 mcg/actuat ion aerosol inhaler 2022 023 [facility]/Pharmacy #[id number], [address] [place], [address], 3 15:24:16 prednisone 10 mg tablet [address]/Pharmacy #[id number], [address] [place], [address], 09:24:44 Patient TargetsNo targets recorded. Patient InstructionsNo instructions recorded. Reason for Referral None Reported. Results Created Date Observation Date Name Description Value Unit Range Abnormal Flag Note LastModifiedBy Organization Detail LastModifiedTime 05/30/2005/30/2020 US, thyro id No observ ation record ed. [address], [place], [address], 05/30/2020 16:34:31 10/08/19 22 10/05/2021 [email or web address] , scree [place], digit al, bilat eral No observ ation record ed. [address] [place], [address], 10/08/2021 12:18:46 10/17/19 23 10/16/2022 [email or web address] , scree [place], digit al, bilat eral No observ ation record ed. [email or web address] [address] [place], [address], 10/18/2022 08:19:07 11/03/1911/03/2023 US, kidne y No observ ation record ed. [facility] (Medical Records) [address] [facility] [place], [address], 11/03/2023 12:21:42 11/20/1911/12/2023 [email or web address] , scree [place], digit al, bilat eral No observ ation record ed. [email or web address] [address] [place], [address], 11/20/2023 15:59:44 06/22/20 24 06/21/2024 US, renal No observ ation record ed. [email or web address] [facility] (Medical Records) [address] [place], [address], 06/22/2024 08:04:39 12/18/1912/16/2024 US, thyro id No observ ation record ed. [facility] [address] [facility], [place], [address], 12/20/2024 10:49:46 Result Notes None recorded. Problems Name Problem SNOMED Code Status Onset Date Resolution Date Notes Provider Name and Address Organization Details Recorded Time Hypothyroi dism 29961313 [facility] 8 11:31:58 Psoriasis with arthropath y Active 2017 Monae Blackburn NP, [address] [place] [address], [address], [facility] 8 10:18:22 Wears bifocal glasses 795259759 Active 2018 [facility] KASEY Long [address] [place] [address], [address], [facility] 9 14:02:05 Body mass index 25-29 - overweight 334041182 Active 2018 [facility] KASEY Long [address] [place] [address], [address], [facility] 9 14:02:09 Vitamin D deficiency 46972998 Active 2018 [facility] KASEY Long [address] [place] [address], [address], [facility] 9 14:02:11 COVID-19 092334216 Active 2021 RENAE LEI [address] [place] [address], [address], [facility] 2 11:37:17 Calculus of kidney and ureter 238133837 Active 2021 RENAE LEI [address] [place] [address], [address], [facility] 2 09:10:40 Candidiasi s of mouth 38029116 Active 2021 RENAE LEI [address] [place], [address], [facility] 2 16:19:34 Cough 19828910 Active 2022 RENAE LEI [address] [place], [address], [facility] 3 15:22:54 Sunburn of first degree 392860967 Active 2022 RENAE LEI [address] [place], [address], [facility] 3 15:49:15 Psoriasis 7515376 Active 2024 RENAE LEI [address] [place] [address], [address], [facility] 5 09:32:36 Psoriatic arthritis 774177020 Active 2024 RENAE LEI [address] [place] [address], [address], [facility] 5 09:33:17 Kidney stone 59475531 Active 2024 RENAE LEI [address] [place] [address], [address], [facility] 5 09:35:58 Thyroiditi s 53948199 Active 2024 RENAE LEI [address] [place] [address], [address], [facility] 5 14:48:45 Acute infective bronchitis 890539858 Active 2024 RENAE LEI [address] [place] [address], [address], [facility] 5 14:58:02 Problem Notes None recorded. Procedures Surgical History Date Name Laterality Status Provider Name and Address Organization Details Recorded Time 07/09/20 13 Arthroscopic Surgery completed Kaila Rico [facility] 04/08/2018 11:30:35 Imaging Results None recorded. Procedure Notes None recorded. Medical Equipment None Reported. Allergies Allergen ID Allergen Name Allergen Category Reaction Reaction Severity Criticality Documentation Date Start Date Code Code System Note Provider Name and Address Organization Details Recorded Time 2153 Penicilli n Not available rash respirato ry distress moderate mild Not available 04/08/2018 63606 RxNorm Kaila Rico eva [facility] 8 11:29:07 3575 Humira medicatio n rash Not available Not available 06/30/2019 99841 4 RxNorm issa Moore eva [facility] 9 13:28:58 Medications Name Sig [...] LAYER TO ENTIRE BURN AREA BY TOPICALRO CONFEDERATED COOS 2 TIMES PER DAY 11/08 completed Not Available Not Available Not Available nystatin 100,000 unit/mL oral suspension TAKE 5 ML BY MOUTH 4 TIMES A DAY FOR 7 DAYS 11/08 completed Not Available Not Available Not Available prednisone 10 mg tablet TAKE 5 TABS DAILY X2 DAYS,4 TABS X 2 DAYS, 3 TABS X2 DAYS,2 TABS X2 DAYS THEN 1 TAB X 2 DAYS active Not Available Not Available No t Available nabumetone 750 mg tablet TAKE 1 TABLET (750 MG TOTAL) BY MOUTH 2 (TWO) TIMES A DAY NEEDED (ARTHRITI S PAIN). active Not Available Not Available No t Available azithromyci n 250 mg tablet TAKE [...] BD Tuberculin Syringe 1 mL 27 x 08/26 USE DIRECTED ONCE WEEKLY TO ADMINISTE R [...] TAKE 1 TABLET BY MOUTH EVERY DAY DIRECTED active Not Available Not Available No t [...] Updated DateTime 5 157.48 cm 33.3 kg/m2 11268.8 1 g 55 /min 96 % 96 % 128 mm[Hg] 82 mm[Hg] Chaim Arreola [facility] 5 09:27:12 Date Recorded Body height Body mass index (BMI) Body weight Heart rate Oxygen saturation Oxygen saturation in Arterial blood by Pulse oximetry Systolic blood pressure Diastolic blood pressure Provider Name and Address Organization Details Last Updated DateTime 0 157.48 cm 29.9 kg/m2 20938.0 7 g 69 /min 98 % 98 % 120 mm[Hg] 70 mm[Hg] RENAE LEI [address] [place], [address], [facility] 0 09:39:48 Date Recorded Body weight Heart rate Oxygen saturation Oxygen saturation in Arterial blood by Pulse oximetry Systolic blood pressure Diastolic blood pressure Provider Name and Address Organization Details Last Updated DateTime 2 39395.3 g 83 /min 98 % 98 % 122 mm[Hg] 62 mm[Hg] Joan Gillespie [facility] 09:37:11 Social History Question Answer Notes LastModified by Organizat ion Details LastModified Time Tobacco Smoking Status Never Smoker Kaila velasquez [facility] 04/08/2018 11:30:28 Are You Blind Or Do You Have Difficulty Seeing? No Information not available 04/08/2018 What Is Your Level Of Caffeine Consumption? None Information not available 04/08/2018 How Much Tobacco Do You Chew? None Information not available 04/08/2018 Are You Deaf Or Do You Have Serious Difficulty Hearing? No Information not available 04/08/2018 What Type Of Diet Are You Following? REGULAR Information not available 04/08/2018 Education 2 Year College Information not available 07/10/2022 Are There Any Guns Present In Your [...] To Smoke? No Information not available 04/08/2018 How Much Tobacco Do You Smoke? No Information not available 04/08/2018 General Stress Level Medium Information not available 07/10/2022 Do You Use Sunscreen Routinely? Yes Information not available 04/08/2018 How Many Years Have You Smoked Tobacco? 0 Information not available 06/30/2019 Do You Have Difficulty Walking Or Climbing Stairs? Yes Information not available 04/08/2018 Sex: Unknown Functional Status Question Answer Note LastModified by Organizat ion Details LastModified Time What is your level of alcohol consumption? None Information not available 04/08/2018 Do you or have you ever used smokeless tobacco? Never used smokeless tobacco Information not available 07/10/2022 Are you currently employed? Yes Information not available 04/08/2018 Are you able to walk? YESWOREST Information not available 04/08/2018 Do you have difficulty doing errands alone? No Information not available 04/08/2018 Are you able to care for yourself? 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 No Information not available 04/08/2018 Do you or have you ever used e-cigarettes or vape? Never used electronic cigarettes Information not available 07/10/2022 Mental Status Question Answer Note LastModified by [...] History Condition Response Coronary Artery Disease N Gout N Other N Kidney Stones N Blood Diseases N Blood Transfusion N Breast Cancer N COPD N Depression N Lung Disease N Defects or Inherited Disease N Anxiety Disorder N Muscle, Joint, or Bone Problems N Obesity N Vision or Eye Problems N Arthritis Y Infertility N Polyps N Mental Disorder N Cancer N Stroke N Varicosities N Endometriosis N Bladder or Kidney Problems N High Cholesterol N Liver Disease N Fibromyalgia N Headaches N Kidney Disease N Allergies/Hayfever N Heart Problems N Hospitalizations N Thyroid Problems Y GI Problems N Eating Disorder N Skin Problems N Anemia N MRSA exposure N Constipation N Mental Illness N Diabetes N Ovarian Cancer N Seizures/Epilepsy N Tuberculosis N Congestive Heart Failure (CHF) N Eczema N Abuse/Domestic Violence N Diverticulitis N Asthma N Reflux/GERD N Hepatitis N [...] PF, 30 mcg/0.3 mL dose 10/06/2020 completed [facility] 03/27/2021 10:37:04 COVID-19, mRNA, LNP-S, PF, 30 mcg/0.3 mL dose 11/06/2020 completed Kaila Jacky velasquez [facility] 03/27/2021 10:37:09 Past Encounters Encounter ID Performer Location Encounter Start Date Encounter Closed Date Diagnosis/Indication Diagnosis SNOMED-CT Code Diagnosis ICD10 Code Diagnosis Note [id number] Ton Robert [facility] [address] [facility], [place] [address] 04/08/2018 11:18:14 04/08/2018 13:33:50 Hypothyroidism 16906220 E03.9 Screening procedure 2012 5006 Z13.9 Anemia 736016483 D64.9 Adult heal th examination 445884895 Z00.00 Body mass index 25-29 - overweight 548431970 Z68.28 continue to track calories, try to decrease by 50 daily Pain of mu ltiple joints 63576133 M25.50 see's rheumatolo gy, ? seronegati ve RA, discuss dangers of chronic prednisone [id number] Ton Robert [facility] [address] [facility], [place] [address] 10/14/2018 08:58:28 10/14/2018 09:41:48 Hordeolum externum of lower eyelid 991258076 H00.019 Psoriasis with arthropathy 13380299 L40.[address] [facility], follow Vitamin D deficiency 347 95731 E55.9 await labs Hypothyroidism 01307793 E03.9 stable [id number] Ton Robert [facility] [address] [facility], [place] [address] 06/30/2019 13:19:30 06/30/2019 15:09:25 Adult health examination 252929506 Z00.00 due for pap this year ES used to do paps Active or passive immunization 675659728 Z23 Body mass index 25-29 - overweight 782006110 Z68.29 Hypothyroidism 06733825 E03.9 Vitamin D deficiency 347 79683 E55.9 Atypical chest pain 1025 58653 R07.89 Dyspnea on exertion 6084 5006 R06.09 ? underlying [id number] [address] [facility], [place] [address] 05/24/2020 09:25:18 05/24/2020 10:02:00 Immunization due 424097850 Z23 will send in Hypothyroidism 14968130 E03.9 will check again and have thyroid checked as well [id number] Ton Robert [facility] Internal [facility] [address] [facility], [place] [address] 07/10/2022 09:28:27 07/10/2022 15:52:17 Calculus of kidney and ureter 297816749 N20.2 is following up with urology in a few weeksjust saw them on Friday Acute urin luiza tract infection 304487709 N10 will recheck her CBC to see if her WBC has gone back Hypothyroidism 71017450 E03.8 will check again for patient; reports that she had it done 6 mos ago [id number] [facility] [address] [facility], [place] [address] 10/08/2022 11:16:39 10/09/2022 08:28:15 Cough 38886638 R05.1 [id number] Ton Robert [facility] [address] [facility], [place] [address] 11/08/2024 09:17:09 11/08/2024 10:42:27 Kidney stone 10774182 N20.0 stable Hypothyroidism 21105454 E03.8 will check again for patient; reports that she had it done 6 mos ago Psoriasis 1829772 L40.8 stable Psoriatic arthritis 1563 29261 L40.53 stable Screening for cardiovascular system disease 246160668 Z13.6 needs recheck [id number] Ton Robert [facility] [address] [facility] [place] [address] 01/04/2025 14:55:08 01/04/2025 16:16:46 Acute infective bronchitis 057220229 J20.8 start on pred taper Health Concerns Section Related Observation LastModified by Organization Detai ls LastModified Time None Recorded Concern Status LastModified by Organization Details LastModified Time None Recorded Advance Directives Directive None Recorded Payers Encounter Date Sequence Insurance Name Policy Number Policy Ervin Covered Member ID Ervin Member ID Guarantor Name 05/24/2020 1 [employer] [id number] Joan Seelerc [id number] Joan Henderson Desirae 07/10/2022 1 [employer] [id number] Joan Desirae [id number] Joan Henderson Desirae 10/08/2022 1 [employer] [id number] Joan Desirae [id number] Joan Henderson Desirae 11/08/2024 1 [employer] [id number] Joan Desirae [id number] Joan Henderson Desirae 01/04/2025 1 [employer] [id number] Joan Desirae [id number] 2 oJan Henderson Desirae Notes Date Note Type Note Provider Name a pr Address Organization Details Recorded Time 0 text/html TSH the patient reports that she had her TSH at her rheum office after telling her drRivka she was having hot flashes or intolerance [...] abdominal pain, no chest pain RENAE LEI [address] [place] [address], [address], [place] [facility] 05/24/2020 09:58:56 2 text/html Hospital [...] due to the stent RENAE LEI [address] [place], [address], [facility] 07/10/2022 09:50:41 3 text/html [...] tapercall back with update RENAE LEI [address] [place], [address], [facility] 10/08/2022 15:27:01 5 text/html medication check the patient is seeing [facility]. Gan [place] [facility] [place] rheumatologistshe was previously on alt meds, [...] otherwise doing well needs thyroid rechecked RENAE LIE [address] [place], [address], [facility] 11/08/2024 09:44:17 5 text/html c/o sick symptoms The patient is participating in this appointment via telemedicine communication with a phone call/video calling service (Doxy)The patient consents to use of these platforms in place of an in-person appointment due to either sick symptoms the patient is presenting with or current office closure due to COVID exposure in order to keep our office staff and patients safe The patient presents to the office today with concerns of sick symptoms including wheezing, sore throat, upper chest congestion and wheezing (exp) The symptoms started originally last weekThe patient reports exposure to plane, she was traveling started getting sick when she got backThe patient symptoms mainly involves the cough and congestion Pertinent comorbidities include hx of bronchitis The patient symptoms are alleviated by n/aThe patient symptoms are exacerbated by talking, laying flat The patient has tested for COVID-19 and the results was negative x [address] LEI [address] [place] [address], [place], [address], [facility] 01/04/2025 15:00:57 OBGyn Episode No OBEpisode recorded.
== END 2025-01-28 11:31 | disposition home or self-care (01) ==
LOC: HO.MAMMO 11:30
PROVIDERS: PCP Internal Medicine; Visit Provider Internal Medicine
DX: Z12.31 Encounter for screening mammogram for malignant neoplasm of breast (principal)
CPT/HCPCS: 77063; 77067

== ENCOUNTER → 2025-01-28 11:45 | Outpatient (BNV) | payer OTHER, SELFPAY | PROVIDERS: PCP Internal Medicine; Visit Provider Internal Medicine | DX: Z12.31 Encounter for screening mammogram for malignant neoplasm of breast (principal) | CPT/HCPCS: 77063; 77067 ==

== ENCOUNTER 2025-01-31 07:35 | Outpatient (AMB) | payer OTHER, SELFPAY ==
--- NOTE | 2025-01-30 22:32 | A.OFFVIS_ITS ---
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 ankita is a 53-year-old female who presents today to the office for follow-up to review US results. She states she is doing well. She denies gross hematuria or renal colic. Plan cont to monitor kidney stones. 11/17/23--Joan is a 53-year-old female who presents today to the office for follow-up to review US results. She states she is doing well. She denies gross hematuria or renal colic. Reviewed renal US 11/03/23- no significant change, bilateral renal calculi, small, no hydronephrosis. Plan cont to monitor kidney stones. FU in one year. 04/17/2023?She is followed today for US and KUB results. PMH of psoriatic arthritis, Bradley's disease. She was last seen by me on 10/02/2022 for bilateral kidney stones. Patient was instructed on the importance of fluid intake up to 2.5 liters at that time. She was advised to continue with Low-oxalate diet, low-sodium diet, and to follow up in 6 months with renal sono, KUB and repeat 24-hour urine. She states that she is trying to consume adequate amount of fluids. She states that she is adding lemon to water. I reviewed the US retroperitoneal results from 02/27/2023 revealed bilateral renal calculi. No hydronephrosis. I reviewed the X ray KUB results from 02/27/2023 revealed 0.3 cm radiopaque density overlying of both right kidney may represent intrarenal calculus. Other known intrarenal calculi are not as well visualized radiographically. Please refer to the renal ultrasound from today for more detailed findings. Evaluation today?UA?leukocytes: negative; blood: negative. Plan Vit B6 100mg daily, monitor kidney stones. 10/02/2022?51-year-old female followed for kidney stones here in fu post 24 hr urine PMhistory of psoriatic arthritis, Bradley's disease. s/p Left ureteral stent on 06/26/22.? s/p left ureteroscopy stone extraction, stent removal on 07/16/22? --? Discussed 24 hour urine results-Collected 09/06/22:? Total volume? 590? mL, Calcium? 142 mg; Oxalate? 17? mg, Sodium 113, Citrate? 437? mg.? Instructed on importance of fluid intake up to 2.5 liters important, Continue with Low oxalate diet, low sodium diet. Plan: follow up in 6months renal sono, KUB and repeat 24 hr urine Treatment course: s/p Left ureteral stent on 06/26/22.? s/p left ureteroscopy left distal stone extraction, stent removal on 07/16/22? Imaging: CT Abd/pelvis 06/23/22--KIDNEYS AND URETERS: A punctate obstructing stone is noted in the distal left ureter,? with with question of possible additional stone slightly distally? which results in mild proximal hydroureteronephrosis. Few additional punctate nonobstructing bilateral renal stones are also seen. Left renal hypodensity too small to characterize. (note s/p Left ureteral stent 06/26/22) [facility] Medical History Nephrolithiasis Psoriatic arthritis Surgical History S/P cystoscopy with ureteral stent placement Family History Father No problems noted. Mother No problems noted. Social History Household Members: Spouse and Children Housing: House Do you presently have visiting nurse or other home services: No Alcohol intake: never Patient Tobacco Use Status: Never used Tobacco service: No Current occupational status: employed Telehealth Telehealth Telehealth Platform: [employer] Location of provider rendering services: practice address Location of patient: address on file Patient Identification confirmed using: Name, : Yes Telehealth method: voice only Patient verbally consented to treatment: Yes Patient verbally consented to billing insurance company: Yes Patient informed of any privacy concerns related to visit: Yes Minutes spent on Phone/Video with Pt.: 14 Results Reviewed Results Reviewed: Date of Service: 06/21/24 EXAMINATION: CLINICAL INFORMATION: Flank pain, calculus of kidney, hydronephrosis, pyelonephritis. COMPARISON: 11/03/2023 ultrasound retroperitoneum ON 02/27/2023. TECHNIQUE: Real-time imaging of the kidneys and bladder. Limited visualization due to bowel gas. FINDINGS: RIGHT KIDNEY: 11.4 x 4.6 x 5.7 cm (SAG x AP x TRV). No hydronephrosis. 0.6 and 0.4 cm upper pole calculi. Renal cortical thickness is normal. Limited visualization. 0.8 cm mid pole cyst with benign features. There is no indication for follow-up imaging. LEFT KIDNEY: 9.8 x 4.7 x 4.2 cm (SAG x AP x TRV). No hydronephrosis. 0.8 and 0.5 cm lower pole calculi. 0.5 cm upper pole calculus. Renal cortical thickness is normal. Limited visualization. 1.2 cm lower pole cyst with benign features. There is no indication for follow-up imaging. IMPRESSION: Bilateral nonobstructive renal calculi. No hydronephrosis. Date of Service: 11/03/23 EXAMINATION: US RETROPERITONEAL COMPLETE (RENAL) CLINICAL INFORMATION: Renal calculus. COMPARISON: Renal ultrasound from 02/27/2023. Abdomen CT from 06/23/2022. TECHNIQUE: Real-time imaging of the kidneys and bladder. FINDINGS: RIGHT KIDNEY: 12 x 5 x 5.1 cm (SAG x AP x TRV). 0.7 cm simple cyst of the interpolar region. No renal imaging follow-up is recommended for simple cyst. Questionable finding of a small 0.4 cm calyceal stone of the interpolar area. A calyceal stone in the upper pole measures up to 0.5 cm and is unchanged compared to 02/27/2023. No hydronephrosis. LEFT KIDNEY: 10.4 x 5.1 x 4.1 cm (SAG x AP x TRV). 1.1 cm simple cyst of the lower pole. No renal imaging follow-up recommended. 0.5 cm calyceal stone of the lower pole is unchanged compared to 02/27/2023. Also, there appears to be a small, approximately 0.3 cm stone in the interpolar area and possible 0.4 cm stone in the upper pole. No large calculi or hydronephrosis. A region of decreased echotexture at the posterior upper pole corresponds to site of chronic cortical thinning/atrophy seen on abdomen CT from 06/23/2022. BLADDER: Well distended and normal. Bilateral ureteral jets are demonstrated. Prevoid bladder volume is 170 mL. Postvoid bladder volume is 4 mL. IMPRESSION: * Again noted are small bilateral renal calculi. No large stones or hydronephrosis. * Urinary bladder is normal. Date of Service: 02/27/23 EXAMINATION: US RETROPERITONEAL LIMITED (RENAL ONLY) CLINICAL INFORMATION: Calculus of kidney. COMPARISON: X-ray abdomen KUB same date. CT abdomen and pelvis 06/23/2022. FINDINGS: RIGHT KIDNEY: 10.9 x 4.7 x 6.0 cm (SAG x AP x TRV). Medial midpole 0.5 cm cyst is difficult to characterize due to small size. There is a 0.7 cm upper pole and a 0.3 cm mid pole calculi. No hydronephrosis. Limited visualization. Renal cortical thickness is normal. LEFT KIDNEY: 10.4 x 4.6 x 4.4 cm (SAG x AP x TRV). Renal calculi measure 0.3 cm midpole, 0.6 cm lower pole and 0.6 cm lower pole. Renal cortical thickness is normal. No hydronephrosis. Limited visualization. There is a 1.2 x 1.1 x 1.1 cm cyst lower pole with benign features. There is no indication for follow-up imaging. IMPRESSION: Bilateral renal calculi. No hydronephrosis. Date of Service: 02/27/23 EXAMINATION: XR ABDOMEN KUB CLINICAL INDICATION: Calculus of kidney.? COMPARISON: Renal ultrasound performed today. CT scan of the abdomen and pelvis dated 06/23/2022.? FINDINGS: The bowel gas pattern is normal with no evidence of ileus or obstruction. A 0.3 cm radiopaque density overlies the upper pole the right kidney. Multiple phleboliths are seen overlying the inferior pelvis. Mild degenerative disc disease is seen at L3-L4 and L4-L5. L5-S1 is transitional with partial sacralization of L5 on the right side. IMPRESSION: 1.? 0.3 cm radiopaque density overlying of both right kidney may represent intrarenal calculus. Other known intrarenal calculi are not as well visualized radiographically. Please refer to the renal ultrasound from today for more detailed findings. Assessment & Plan Assessment & Plan (1) Bilateral kidney stones: Code(s): N20.0 - Calculus of kidney Category: Medical (2) Nephrolithiasis: Code(s): N20.0 - Calculus of kidney Category: Medical Plan cont to monitor kidney stones. Cont Vit b6 100 mg daily. FU in one year. Patient Instructions: The patient had an opportunity to ask questions regarding treatment plan. The patient expressed understanding and agreement with the above treatment plan. The patient is aware they should contact our office by phone for worsening of their current condition or the appearance of new symptoms. Compliance is encouraged with any medications and followup testing that is ordered. It is a privilege to be allowed the opportunity to participate in the urologic care of your patient. If you have any questions or concerns regarding treatment for the above conditions please do not hesitate to contact me. The office telephone contact is [phone]. This note is constructed in part using voice recognition software. While every effort has been made to ensure accuracy weight tester errors may have been included. Yours sincerely, Hernando Davis MD Coding Level of Care Code Tele Est Pt Level 3 (23649) Diagnoses Bilateral kidney stones N20.0 Nephrolithiasis N20.0
--- OUTSIDE RECORDS SUMMARY | 2025-01-31 07:37 | XMS_ITS | Data Portability ---
Author Organization [facility], Telehealth Patient Home Address [address] [place] [address] Assessment Encounter Date Assessment Date Assessment LastModified [...] recorded. Lab lipid panel, blood 2024 025 [facility], [address] [place] [address], [address], 5 12:42:21 hemoglobin A1c, QN, blood 2024 025 [facility], [address] [place] [address], [address], 5 12:42:21 TSH + free T4, serum 2024 025 [facility], [address] [place] [address], [address], 5 12:42:21 T3, free, serum or plasma 2024 025 [facility], [address] [place] [address], [place], [address], 5 12:42:21 thyroid peroxidase (tpo) Ab, serum 2024 025 [facility], [address] [place] [address], [place], [address], 5 13:01:11 CBC w/ auto diff 2021 022 [facility], [address] [place] [address], [address], 2 09:50:25 TSH + free T4, serum 2021 022 [facility], [address] [place] [address], [address], 2 12:26:25 TSH + free T4, serum 2019 020 [facility], [address] [facility], [address], [place], [address], 0 02:28:58 Referral None recorded. Procedures None recorded. Surgeries None recorded. Imaging US, thyroid 2019 020 BENEDICT Not available 0 15:08:49 Medication Orders prednisone 10 mg tablet 2024 025 [facility][id number], [address] [place], [address], 5 15:00:37 albuterol sulfate HFA 90 mcg/actuat ion aerosol inhaler 2022 023 [facility][id number], [address] [place], [address], 3 15:24:16 prednisone 10 mg tablet [address]/Pharmacy #[id number], [address] [place], [address], 09:24:44 Patient TargetsNo targets recorded. Patient InstructionsNo instructions recorded. Reason for Referral None Reported. Results Created Date Observation Date Name Description Value Unit Range Abnormal Flag Note LastModifiedBy Organization Detail LastModifiedTime 05/30/2005/30/2020 US, thyro id No observ ation record ed. [address], [place], [address], 05/30/2020 16:34:31 10/08/19 22 10/05/2021 [email or web address] , scree [place], digit al, bilat eral No observ ation record ed. [address] [place], [address], 10/08/2021 12:18:46 10/17/19 23 10/16/2022 MAMMO , scree [place], digit al, bilat eral No observ ation record ed. [facility] [address] [place], [address], 10/18/2022 08:19:07 11/03/1911/03/2023 US, kidne y No observ ation record ed. [facility] (Medical Records) [address] [facility] [place], [address], 11/03/2023 12:21:42 11/20/1911/12/2023 MAMMO , scree [place], digit al, bilat eral No observ ation record ed. [email or web address] [address] [place], [address], 11/20/2023 15:59:44 06/22/20 24 06/21/2024 US, renal No observ ation record ed. [email or web address] [facility] (Medical Records) [address] [facility] [place], [address], 06/22/2024 08:04:39 12/18/1912/16/2024 US, thyro id No observ ation record ed. [facility] [address] [facility], [place], [address], 12/20/2024 10:49:46 Result Notes None recorded. Problems Name Problem SNOMED Code Status Onset Date Resolution Date Notes Provider Name and Address Organization Details Recorded Time Hypothyroi dism 77274843 [facility] 8 11:31:58 Psoriasis with arthropath y Active 2017 Monae Blackburn NP, S [address] [place] [address], [address], [facility] 8 10:18:22 Wears bifocal glasses 226941651 Active 2018 [facility] KASEY Long [address] [place] [address], [address], [facility] 9 14:02:05 Body mass index 25-29 - overweight 383072613 Active 2018 [facility] KASEY Long [address] [place] [address], [address], [facility] 9 14:02:09 Vitamin D deficiency 19775021 Active 2018 [facility] KASEY Long [address] [place] [address], [address], [facility] 9 14:02:11 COVID-19 762347743 Active 2021 RENAE LEI [address] [place] [address], [address], [facility] 2 11:37:17 Calculus of kidney and ureter 949469220 Active 2021 RENAE LEI [address] [place] [address], [address], [facility] 2 09:10:40 Candidiasi s of mouth 28326671 Active 2021 RENAE LEI [address] [place], [address], [facility] 2 16:19:34 Cough 02565105 Active 2022 REANE LEI [address] [place], [address], [facility] 3 15:22:54 Sunburn of first degree 471378414 Active 2022 RENAE LEI [address] [place], [address], [facility] 3 15:49:15 Psoriasis 6548473 Active 2024 RNEAE LEI [address] [place] [address], [address], [facility] 5 09:32:36 Psoriatic arthritis 976065724 Active 2024 RENAE LEI [address] [place] [address], [address], [facility] 5 09:33:17 Kidney stone 40932608 Active 2024 RENAE LEI [address] [place] [address], [address], [facility] 5 09:35:58 Thyroiditi s 45575500 Active 2024 RENAE LEI [address] [place] [address], [address], [facility] 5 14:48:45 Acute infective bronchitis 003407219 Active 2024 RENAE LEI [address] [place] [address], [address], [facility] 5 14:58:02 Problem Notes None recorded. Procedures Surgical History Date Name Laterality Status Provider Name and Address Organization Details Recorded Time 07/09/20 13 Arthroscopic Surgery completed Kaila Rico [facility] 04/08/2018 11:30:35 Imaging Results None recorded. Procedure Notes None recorded. Medical Equipment None Reported. Allergies Allergen ID Allergen Name Allergen Category Reaction Reaction Severity Criticality Documentation Date Start Date Code Code System Note Provider Name and Address Organization Details Recorded Time 2153 Penicilli n Not available rash respirato ry distress moderate mild Not available 04/08/2018 13575 RxNorm Kaila Rico eva [facility] 8 11:29:07 3575 Humira medicatio n rash Not available Not available 06/30/2019 30514 4 RxNorm issa Moore eva [facility] 9 13:28:58 Medications Name Sig [...] LAYER TO ENTIRE BURN AREA BY TOPICALRO JAMUL 2 TIMES PER DAY 11/08 completed Not [...] Updated DateTime 5 157.48 cm 33.3 kg/m2 24728.8 1 g 55 /min 96 % 96 % 128 mm[Hg] 82 mm[Hg] Chaim Arreola [facility] 5 09:27:12 Date Recorded Body height Body mass index (BMI) Body weight Heart rate Oxygen saturation Oxygen saturation in Arterial blood by Pulse oximetry Systolic blood pressure Diastolic blood pressure Provider Name and Address Organization Details Last Updated DateTime 0 157.48 cm 29.9 kg/m2 59885.0 7 g 69 /min 98 % 98 % 120 mm[Hg] 70 mm[Hg] RENAE LEI [address] [place], [address], [facility] 0 09:39:48 Date Recorded Body weight Heart rate Oxygen saturation Oxygen saturation in Arterial blood by Pulse oximetry Systolic blood pressure Diastolic blood pressure Provider Name and Address Organization Details Last Updated DateTime 2 31341.3 g 83 /min 98 % 98 % 122 mm[Hg] 62 mm[Hg] Joan Gillespie [facility] 09:37:11 Social History Question Answer Notes LastModified by Organizat ion Details LastModified Time Tobacco Smoking Status Never Smoker Kaila velasquez [facility] 04/08/2018 11:30:28 Are You Blind [...] available 04/08/2018 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 Information not available 04/08/2018 Do you have [...] N Blood Diseases N Blood Transfusion N COPD N Depression N Anxiety Disorder N Muscle, Joint, or Bone Problems N Obesity N Vision or Eye Problems N Arthritis Y Polyps N Infertility N Mental Disorder N Cancer N Varicosities N Stroke N Headaches N Fibromyalgia N Kidney Disease N Heart Problems N Hospitalizations N Eating Disorder N Skin Problems N MRSA exposure N Constipation N Tuberculosis N Asthma N Hepatitis N Pulmonary Embolism N Chicken Pox N Autism Spectrum Disorder (ASD) N Breast Cancer N Lung Disease N Defects or Inherited Disease N Endometriosis N Bladder or Kidney Problems N High Cholesterol N Liver Disease N Allergies/Hayfever N Thyroid Problems Y GI Problems N Anemia N Mental Illness N Diabetes N Ovarian Cancer N Seizures/Epilepsy N Congestive Heart Failure (CHF) N Eczema N Abuse/Domestic Violence N Diverticulitis N Reflux/GERD N Heart Disease N Hypertension N Osteoporosis N Gynecological History Statement/Question Response [...] 30 mcg/0.3 mL dose 10/06/2020 completed Kaila Balicki null, [facility] 03/27/2021 10:37:04 COVID-19, mRNA, LNP-S, PF, 30 mcg/0.3 mL dose 11/06/2020 completed Kaila Jacky velasquez [facility] 03/27/2021 10:37:09 Past Encounters Encounter ID Performer Location Encounter Start Date Encounter Closed Date Diagnosis/Indication Diagnosis SNOMED-CT Code Diagnosis ICD10 Code Diagnosis Note [id number] Ton Robert [facility] [address] [facility], [place] [address] 04/08/2018 11:18:14 04/08/2018 13:33:50 Hypothyroidism 09154058 E03.9 Screening procedure 2012 5006 Z13.9 Anemia 810020185 D64.9 Adult heal th examination 496722126 Z00.00 Body mass index 25-29 - overweight 806572159 Z68.28 continue to track calories, try to decrease by 50 daily Pain of mu ltiple joints 07084113 M25.50 see's rheumatolo gy, ? seronegati ve RA, discuss dangers of chronic prednisone [id number] Ton Robert [facility] [address] [facility], [place] [address] 10/14/2018 08:58:28 10/14/2018 09:41:48 Hordeolum externum of lower eyelid 736753421 H00.019 Psoriasis with arthropathy 26619283 L40.50 new to [facility], follow Vitamin D deficiency 347 53749 E55.9 await labs Hypothyroidism 63399004 E03.9 stable [id number] Ton Robert [facility] [address], [place] [address] 06/30/2019 13:19:30 06/30/2019 15:09:25 Adult health examination 677904479 Z00.00 due for pap this year ES used to do paps Active or passive immunization 679988684 Z23 Body mass index 25-29 - overweight 043078985 Z68.29 Hypothyroidism 04163387 E03.9 Vitamin D deficiency 347 10686 E55.9 Atypical chest pain 1025 31382 R07.89 Dyspnea on exertion 6084 5006 R06.09 ? underlying asthma [id number] [facility] [address], [place] [address] 05/24/2020 09:25:18 05/24/2020 10:02:00 Immunization due 227724641 Z23 will send in Hypothyroidism 87428155 E03.9 will check again and have thyroid checked as well [id number] Ton Robert [facility] Internal [facility] [address], [place] [address] 07/10/2022 09:28:27 07/10/2022 15:52:17 Calculus of kidney and ureter 568978520 N20.2 is following up with urology in a few weeksjust saw them on Friday Acute urin luiza tract infection 258502065 N10 will recheck her CBC to see if her WBC has gone back Hypothyroidism 30002578 E03.8 will check again for patient; reports that she had it done 6 mos ago [id number] [facility] [address], [place] [address] 10/08/2022 11:16:39 10/09/2022 08:28:15 Cough 00632601 R05.1 [id number] Ton Robert [facility] [address], [place] [address] 11/08/2024 09:17:09 11/08/2024 10:42:27 Kidney stone 16770737 N20.0 stable Hypothyroidism 51637579 E03.8 will check again for patient; reports that she had it done 6 mos ago Psoriasis 7550888 L40.8 stable Psoriatic arthritis 1563 07329 L40.53 stable Screening for cardiovascular system disease 681615518 Z13.6 needs recheck [id number] Ton Robert [facility] [address] [facility] [address] [place], [place] [address] 01/04/2025 14:55:08 01/04/2025 16:16:46 Acute infective bronchitis 141149666 J20.8 start on pred taper Health Concerns Section Related Observation LastModified by Organization Detai ls LastModified Time None Recorded Concern Status LastModified by Organization Details LastModified Time None Recorded Advance Directives Directive None Recorded Payers Encounter Date Sequence Insurance Name Policy Number Policy Ervin Covered Member ID Ervin Member ID Guarantor Name 05/24/2020 1 [employer] [id number] Joan Seelerc [id number] 2 Joan Henderson Desirae 07/10/2022 1 [employer] [id number] Joan Desirae [id number] 2 Joan Henderson Desirae 10/08/2022 1 [employer] [id number] Joan Desirae [id number] 2 Joan Henderson Desirae 11/08/2024 1 [employer] [id number] Joan Desirae [id number] 2 Joan Henderson Desirae 01/04/2025 1 [employer] [id number] Joan Desirae [id number] 2 Joan Henderson Desirae Notes Date Note Type Note Provider Name a ar Address Organization Details Recorded Time 0 text/html [...] abdominal pain, no chest pain RENAE LEI [address] [place] [address], [address], [place] [facility] 05/24/2020 09:58:56 2 [...] due to the stent RENAE LEI [address] [place], [address], [facility] 07/10/2022 09:50:41 3 text/html [...] tapercall back with update RENAE LEI [address] [place], [address], [facility] 10/08/2022 15:27:01 5 text/html medication check the patient is seeing Dr. Gan [facility] for rheumatologistshe was previously on alt meds, [...] well needs thyroid rechecked RENAE LEI [address] [place], [address], [facility] 11/08/2024 09:44:17 5 text/html c/o [...] results was negative x 1 RENAE LEI [address] [place] [address], [place], [address], [facility] 01/04/2025 15:00:57 OBGyn Episode No OBEpisode recorded.
== END 2025-01-31 08:51 | disposition home or self-care (01) ==
LOC: HO.HUSH 07:35
PROVIDERS: PCP Internal Medicine; Visit Provider Urology
DX: N20.0 Calculus of kidney (principal)
CPT/HCPCS: 98013

== ENCOUNTER 2025-03-04 13:42 | Outpatient (REF) | payer OTHER, SELFPAY ==
--- NOTE | ~2025-03-04 | XR_ITS ---
EXAMINATION: XR KNEE, LEFT CLINICAL INFORMATION: internal derangement of knee COMPARISON: 12/20/2021. TECHNIQUE: Four views of the left knee. FINDINGS: No fracture, dislocation, or suspicious bone lesion. There is normal alignment. There is mild medial compartment joint space narrowing. Lateral and patellofemoral compartments appear normal. Extremely subtle chondrocalcinosis is suspected. There is normal patellar alignment. There is no patellar tilt. There is a small sized suprapatellar joint effusion. Normal-appearing soft tissues. XR/XR knee LT 4V IMPRESSION: 1. No acute abnormality of the left knee. 2. Suspect subtle chondrocalcinosis in the medial lateral compartments. 3. Mild degenerative arthritis in the medial compartment. 4. Small joint effusion. Electronically signed by: Lito Mae MD 03/04/2025 02:20 PM EDT
--- OUTSIDE RECORDS SUMMARY | 2025-03-04 13:51 | XMS_ITS | Data Portability ---
Author Organization [facility], Telehealth Patient Home Address [address] [place] [address] Assessment Encounter Date Assessment Date Assessment LastModified by Organization Details LastModified Time 10/08/2022 10/08/2022 Patient agreed and verbally consents to this audio and video Telehealth appt via a secure platform [email or web address] Not available 10/08/2022 15:23:37 01/04/2025 01/04/2025 Patient agreed and verbally consents to this audio and video Telehealth appt via a secure platform [email or web address] Not available 01/04/2025 14:58:35 01/31/2025 01/31/2025 Patient agreed and verbally consents to this audio Telehealth appt via a secure platform [email or web address] Not available 01/31/2025 14:51:38 Plan of Treatment Reminders Order Date Submit Date Provider Last Modified By Organization Details Last Modified Time Details Appointments None recorded. Lab lipid panel, blood 2024 025 [facility], [address] [place] [address], [id number], 12:42:21 hemoglobin A1c, QN, blood 2024 025 [facility], [address] [place] [address], [address], 5 12:42:21 TSH + free T4, serum 2024 025 [facility], [address] [place] [address], [address], 5 12:42:21 T3, free, serum or plasma 2024 025 [facility], [address] [place] [address], [address], 5 12:42:21 thyroid peroxidase (tpo) Ab, serum 2024 025 [facility], [address] [place] [address], [address], 5 13:01:11 CBC w/ auto diff 2021 022 [facility], [address] [place] [address], [address], 09:50:25 TSH + free T4, serum 2021 022 [facility], [address] [place] [address], [address], 12:26:25 Referral None recorded. Procedures None recorded. Surgeries None recorded. Imaging None recorded. Medication Orders Cipro 500 mg tablet 2024 025 [facility]/Pharmacy #[id number], [address] [place], [address], 5 15:54:13 prednisone 10 mg tablet 2024 025 [facility]/Pharmacy #[id number], [address] [place], [address], 5 15:00:37 albuterol sulfate HFA 90 mcg/actuat ion aerosol inhaler 2022 023 [facility]/Pharmacy #[id number], [address] [place], [address], 3 15:24:16 prednisone 10 mg tablet [address]/Pharmacy #[id number], [address] [facility], [place], [address], 09:24:44 Patient TargetsNo targets recorded. Patient InstructionsNo instructions recorded. Reason for Referral None Reported. Results Created Date Observation Date Name Description Value Unit Range Abnormal Flag Note LastModifiedBy Organization Detail LastModifiedTime 10/17/1910/16/2022 MAMMO , scree [place], digit al, bilat eral No observ ation [email or web address] [address] [place], [address], 10/18/2022 08:19:07 11/03/19 24 11/03/2023 US, kidne y No observ ation record ed. [email or web address] [facility] (Medical Records) [address] [facility] [place], [address], 11/03/2023 12:21:42 11/20/19 24 11/12/2023 MAMMO , scree [place], digit al, bilat eral No observ ation record ed. [email or web address] [address] [place], [address], 11/20/2023 15:59:44 06/22/20 24 06/21/2024 US, renal No observ ation record ed. [email or web address] [facility] (Medical Records) [address] [facility], [address], 06/22/2024 08:04:39 12/18/19 25 12/16/2024 US, thyro id No observ ation record ed. [facility] [address] [facility], [address], 12/20/2024 10:49:46 02/04/20 25 01/28/2025 [email or web address] , scree [place], digit al, bilat eral No observ ation record ed. [email or web address] [address] [place], [address], 02/04/2025 09:40:05 Result Notes None recorded. Problems Name Problem SNOMED Code Status Onset Date Resolution Date Notes Provider Name and Address Organization Details Recorded Time Hypothyroi dism 11731683 [facility] 2017 [facility] 8 11:31:58 Psoriasis with arthropath y Active 2017 Monae Blackburn, AARON, S [address] [place] [address], [address], [facility] 8 10:18:22 Wears bifocal glasses 133104636 Active 2018 KASEY Long [address] [place] [address], [address], [facility] 9 14:02:05 Body mass index 25-29 - overweight 951314298 Active 2018 KASEY Long [address] [place] [address], [address], [facility] 9 14:02:09 Vitamin D deficiency 46789976 Active 2018 KASEY Long [address] [place] [address], [address], [facility] 9 14:02:11 COVID-19 341840333 Active 2021 RENAE LEI [address] [place] [address], [address], [facility] 2 11:37:17 Calculus of kidney and ureter 143664077 Active 2021 RENAE LEI [address] [place] [address], [address], [facility] 2 09:10:40 Candidiasi s of mouth 23212327 Active 2021 RENAE LEI [address] [place] [address], [address], [facility] 2 16:19:34 Cough 68321314 Active 2022 RENAE LEI [address] [place], [address], [facility] 3 15:22:54 Sunburn of first degree 335270870 Active 2022 RENAE LEI [address] [place], [address], [facility] 3 15:49:15 Psoriasis 9072373 Active 2024 RENAE LEI [address] [place] [address], [address], [facility] 5 09:32:36 Psoriatic arthritis 403956862 Active 2024 RENAE LEI [address] [place] [address], [address], [facility] 5 09:33:17 Kidney stone 75042576 Active 2024 RENAE LEI [address] [place] [address], [address], [facility] 5 09:35:58 Thyroiditi s 25369182 Active 2024 RENAE LEI [address] [place] [address], [address], [facility] 5 14:48:45 Acute infective bronchitis 682589723 Active 2024 RENAE LEI [address] [place] [address], [address], [facility] 5 14:58:02 Acute bacterial sinusitis 51651513 Active 2024 RENAE LEI [address] [place] [address], [address], [facility] 5 14:50:50 Bacterial conjunctiv itis 732906408 Active 2024 RENAE LEI [address] [place] [address], [address], [facility] 5 14:51:00 Problem Notes None recorded. Procedures Surgical History Date Name Laterality Status Provider Name and Address Organization Details Recorded Time 07/09/20 13 Arthroscopic Surgery completed Kaila Rico [facility] 04/08/2018 11:30:35 Imaging Results None recorded. Procedure Notes None recorded. Medical Equipment None Reported. Allergies Allergen ID Allergen Name Allergen Category Reaction Reaction Severity Criticality Documentation Date Start Date Code Code System Note Provider Name and Address Organization Details Recorded Time 2153 Penicilli n Not available rash respirato ry distress moderate mild Not available 04/08/2018 69748 RxNorm Kaila velasquez [facility] 8 11:29:07 3575 Humira medicatio n rash Not available Not available 06/30/2019 57858 4 RxNorm sob Joanna Moore [facility] 9 13:28:58 Medications Name Sig Start Date [...] LAYER TO ENTIRE BURN AREA BY TOPICALRO WIYOT 2 TIMES PER DAY 11/08 completed Not [...] completed Not Available Not Available Not Available ciprofloxac in 500 mg tablet TAKE 1 TABLET BY MOUTH EVERY 12 HOURS FOR 7 DAYS active Not Available Not Available No t Available triamcinolo ne acetonide 0.1 % topical [...] 1 TABLET BY MOUTH EVERY DAY DIRECTED 2024 active Not Available Not Available Not [...] in Arterial blood by Pulse oximetry Systolic And Diastolic Provider Name and Address Organization Details Last Updated DateTime 5 157.48 cm 33.3 kg/m2 52516.8 1 g 55 /min 96 % 96 % 128/82 mm[Hg] Chaim Arreola [facility] 5 09:27:12 Date Recorded Body weight Heart rate Oxygen saturation Oxygen saturation in Arterial blood by Pulse oximetry Systolic And Diastolic Provider Name and Address Organization Details Last Updated DateTime 2 06873.3 g 83 /min 98 % 98 % 122/62 mm[Hg] Joan Gillespie [facility] 09:37:11 Social History Question Answer Notes LastModified by Organizat ion Details LastModified Time Tobacco Smoking Status Never Smoker Kaila velasquez [facility] 04/08/2018 11:30:28 Are You Blind [...] available 04/08/2018 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 Information not available 04/08/2018 Do you [...] mcg/0.3 mL dose 10/06/2020 completed Kaila velasquez [facility] 03/27/2021 10:37:04 COVID-19, mRNA, LNP-S, PF, 30 mcg/0.3 mL dose 11/06/2020 completed Kaila velasquez [facility] 03/27/2021 10:37:09 Past Encounters Encounter ID Performer Location Encounter Start Date Encounter Closed Date Diagnosis/Indication Diagnosis SNOMED-CT Code Diagnosis ICD10 Code Diagnosis Note [id number] Ton Robert [facility] [address] [facility],[place] [address] 04/08/2018 11:18:14 04/08/2018 13:33:50 Hypothyroidism 62353108 E03.9 Screening procedure 2012 5006 Z13.9 Anemia 217067179 D64.9 Adult heal th examination 556965408 Z00.00 Body mass index 25-29 - overweight 069667511 Z68.28 continue to track calories, try to decrease by 50 daily Pain of mu ltiple joints 93251968 M25.50 see's rheumatolo gy, ? seronegati ve RA, discuss dangers of chronic prednisone [id number] Ton Robert [facility] [address] [facility],[place] [address] 10/14/2018 08:58:28 10/14/2018 09:41:48 Hordeolum externum of lower eyelid 602143819 H00.019 Psoriasis with arthropathy 73060191 L40.50 new to [facility], follow Vitamin D deficiency 347 92167 E55.9 await labs Hypothyroidism 90755662 E03.9 stable [id number] Ton Robert [address],[place] [address] 06/30/2019 13:19:30 06/30/2019 15:09:25 Adult health examination 873262130 Z00.00 due for pap this year ES used to do paps Active or passive immunization 849512844 Z23 Body mass index 25-29 - overweight 501490018 Z68.29 Hypothyroidism 12177539 E03.9 Vitamin D deficiency 347 99943 E55.9 Atypical chest pain 1025 26458 R07.89 Dyspnea on exertion 6084 5006 R06.09 ? underlying asthma [id number] Ton Robert [facility] [address] [facility], [place] [address] 05/24/2020 09:25:18 05/24/2020 10:02:00 Immunization due 306433227 Z23 will send in Hypothyroidism 36903607 E03.9 will check again and have thyroid checked as well [id number] Ton Robert [facility] [address] [facility], [place] [employer] [place] [address] 07/10/2022 09:28:27 07/10/2022 15:52:17 Calculus of kidney and ureter 491984994 N20.2 is following up with urology in a few weeksjust saw them on Friday Acute urin luiza tract infection 061100514 N10 will recheck her CBC to see if her WBC has gone back Hypothyroidism 74072852 E03.8 will check again for patient; reports that she had it done 6 mos ago [id number] Ton Robert [facility] [address] [facility], [place] [employer] [place] [address] 10/08/2022 11:16:39 10/09/2022 08:28:15 Cough 37286096 R05.1 [id number] Ton Robert [facility] [address] [facility], [place] [address] 11/08/2024 09:17:09 11/08/2024 10:42:27 Kidney stone 94693178 N20.0 stable Hypothyroidism 06848200 E03.8 will check again for patient; reports that she had it done 6 mos ago Psoriasis 6905863 L40.8 stable Psoriatic arthritis 1563 56655 L40.53 stable Screening for cardiovascular system disease 314374189 Z13.6 needs recheck [id number] Ton Robert [facility] [address] [facility], [place] [address] 01/04/2025 14:55:08 01/04/2025 16:16:46 Acute infective bronchitis 766957092 J20.8 start on pred taper [id number] Ton Robert [facility] [address] [facility],[place] [address] 01/31/2025 09:21:22 01/31/2025 15:58:39 Acute bacterial sinusitis 66520159 J01.90 B96.89 start on cipro for conjunctiv itis and sinusitis Bacterial conjunctivitis 434235316 H10.9 warm compresses , abx, consistent hand hygiene Acute infe ctive bronchitis 194988306 J20.8 improving Health Concerns Section Related Observation LastModified by Organization Detai ls LastModified Time None Recorded Concern Status LastModified by Organization Details LastModified Time None Recorded Advance Directives Directive None Recorded Payers Insurance Date Sequence Insurance Name Policy Number Policy Ervin Covered Member ID Ervin Member ID Guarantor Name 01/31/2025 1 CATHY [id number] Joan Merrill [id number] Joan Merrill Notes Date Note Type Note Provider Name a nd Address Organization Details Recorded Time 2 text/html Hospital F/U patient was admitted [...] due to the stent RENAE LEI [address] [facility], [place], [address], [facility] 07/10/2022 09:50:41 3 text/html c/o [...] tapercall back with update RENAE LEI [address] [place], [address], [facility] 10/08/2022 15:27:01 5 text/html medication check the patient is seeing Dr. Gan at [facility] for rheumatologistshe was previously on alt meds, [...] well needs thyroid rechecked RENAE LEI [address] [place], [address], [facility] 11/08/2024 09:44:17 5 text/html c/o sick symptoms The patient is participating in this appointment via telemedicine communication with a phone call/video calling service ([employer])The patient consents to use of these platforms [...] results was negative x 1 RENAE LEI [address] [place], [address], [facility] 01/04/2025 15:00:57 5 text/html c/o eye infection and resp symptoms The patient is participating in this appointment via telemedicine communication with a phone call (audio) only.The patient consents to use of these platforms in place of an in-person appointment due to either patient being acutely ill (being in office would put our staff and our other patients at risk) or unable to make an in-person appointment due to either lack of transportation, severe medical condition, immunocompromised, etc.The appointment took place over a phone call (audio) due to patient's inability to access or use an audio and visual platform. The patient presents to the office today with concerns of sick symptoms including cough (improved from previous visit) sore throat, purulent d/c from eyes, and fatigue, sinus pressure and pain, and loss of smelltaste still intact The symptoms started originally a week agoThe patient reports exposure to co workers possibly and also her daughter who had same symptomsThe patient symptoms mainly involves the sore throat and eye irritation and d/c Pertinent comorbidities include bronchitis/asthma The patient has tested for COVID-19 and the results was negative x 2 recommended starting on cipro to treat eyes, throat, lungs all together, better coverage for bacterial eye infections RENAE LEI [address] [facility], [place], [address], [facility] 01/31/2025 14:58:20 OBGyn Episode No OBEpisode recorded.
== END 2025-03-04 13:43 | disposition home or self-care (01) ==
LOC: HO.XRAY 13:42
PROVIDERS: PCP Internal Medicine; Visit Provider Specialist
DX: M17.12 Unilateral primary osteoarthritis, left knee (principal); M25.462 Effusion, left knee
CPT/HCPCS: 73564

== ENCOUNTER → 2025-03-04 13:57 | Outpatient (BNV) | payer OTHER, SELFPAY | PROVIDERS: PCP Internal Medicine; Visit Provider Radiology Diagnostic Radiology | DX: M17.12 Unilateral primary osteoarthritis, left knee (principal) | CPT/HCPCS: 73564 ==

== ENCOUNTER 2025-04-01 07:42 | Outpatient (REF) | payer OTHER, SELFPAY ==
--- NOTE | ~2025-04-01 | US_ITS ---
EXAMINATION: US RETROPERITONEAL LIMITED (RENAL ONLY) CLINICAL INFORMATION: Calculus of kidney. COMPARISON: 06/13/2024 TECHNIQUE: Real-time imaging of the kidneys. FINDINGS: RIGHT KIDNEY: 11.5 x 4.7 x 4.9 cm (SAG x AP x TRV). The kidney is normal in size, contour, and echogenicity. Renal cortical thickness is normal. No suspicious focal parenchymal lesions. There is a mid pole simple cyst measuring 0.7 x 0.6 x 0.8 cm. There are 2 nonobstructing calculi present, larger in the midpole measuring 3 x 2 x 2 mm. LEFT KIDNEY: 9.6 x 5.2 x 4.0 cm (SAG x AP x TRV). The kidney is normal in size, contour, and echogenicity. Renal cortical thickness is normal. No suspicious focal parenchymal lesions. There is a lower pole simple cyst measuring 1.3 x 1.0 x 1.2 cm. There are 4 nonobstructing calculi, largest in the lower pole measuring 6 x 2 x 3 mm. US/US renal BI IMPRESSION: 1. Bilateral nonobstructing nephrolithiasis. 2. Small simple renal cysts bilaterally. 3. No hydronephrosis or suspicious lesion. Electronically signed by: Lito Mae MD 04/01/2025 08:26 AM EDT
== END 2025-04-01 07:43 | disposition home or self-care (01) ==
LOC: HO.US 07:42
PROVIDERS: PCP Internal Medicine; Visit Provider Urology
DX: N20.0 Calculus of kidney (principal)
CPT/HCPCS: 76775

== ENCOUNTER → 2025-04-01 07:46 | Outpatient (BNV) | payer OTHER, SELFPAY | PROVIDERS: PCP Internal Medicine; Visit Provider Radiology Diagnostic Radiology | DX: N20.0 Calculus of kidney (principal) | CPT/HCPCS: 76775 ==

== ENCOUNTER 2025-04-15 09:18 | Outpatient (AMB) | payer OTHER, SELFPAY ==
--- NOTE | 2025-04-15 09:18 | A.OFFVIS_ITS ---
Intake Visit Reasons: 10w/US Intake Note: Patient presents today via telehealth for 10w follow up/US * 04/01 Renal ultrasound Urology Meds- None Allergies to Antibiotic- Penicillins Blood Thinner- None Lidar Scientist Required: No Accompanied by: Self / Same As Patient Allergies adalimumab (Humira) Allergy (Unknown, Verified 04/15/25 09:22) Shortness of Breath Penicillins (PENICILLINS) Allergy (Unknown, Verified 04/15/25 09:22) HIVES, DIFF BREATHING Medication List - Last Reconciled 04/15/25 by Hernando Davis MD cholecalciferol (vitamin D3) 50 mcg PO BEDTIME ferrous sulfate 325 mg PO BEDTIME folic acid 1 tab PO DAILY@0630 ixekizumab (Taltz Autoinjector) mg subcut levothyroxine 125 mcg PO DAILY methotrexate sodium 8 tabs PO QWEEK nabumetone 1 tab PO BID varenicline tartrate (Tyrvaya) 1 spray intranasal DAILY HPI Comments Details: 04/15/25--Joan has been followed due to bilateral kidney stones. I have reviewed renal ultrasound 04/01/2025. Two stones in the right kidney largest 3 mm 3 stones in the left kidney largest 6 mm left kidney lower pole. I have discussed left ESWL, left kidney lower pole 6 mm stone. In review of prior 24 hour urine collection urine volume was low, otherwise urine calcium, oxalate, citrate and sodium were within normal limits. Again discussed importance of in creased fluid intake. Plan left ESWL. 01/31/25--FU kidney stones. Joan is a 53-year-old female who presents today to the office for follow-up to review US results. She states she is doing well. She denies gross hematuria or renal colic. Plan cont to monitor kidney stones. 11/17/23--Joan is a 53-year-old female who presents today to the office for follow-up to review US results. She states she is doing well. She denies gross hematuria or renal colic. Reviewed renal US 11/03/23- no significant change, bilateral renal calculi, small, no hydronephrosis. Plan cont to monitor kidney stones. FU in one year. 04/17/2023?She is followed today for US and KUB results. PMH of psoriatic arthritis, Bradley's disease. She was last seen by me on 10/02/2022 for bilateral kidney stones. Patient was instructed on the importance of fluid intake up to 2.5 liters at that time. She was advised to continue with Low-oxalate diet, low-sodium diet, and to follow up in 6 months with renal sono, KUB and repeat 24-hour urine. She states that she is trying to consume adequate amount of fluids. She states that she is adding lemon to water. I reviewed the US retroperitoneal results from 02/27/2023 revealed bilateral renal calculi. No hydronephrosis. I reviewed the X ray KUB results from 02/27/2023 revealed 0.3 cm radiopaque density overlying of both right kidney may represent intrarenal calculus. Other known intrarenal calculi are not as well visualized radiographically. Please refer to the renal ultrasound from today for more detailed findings. Evaluation today?UA?leukocytes: negative; blood: negative. Plan Vit B6 100mg daily, monitor kidney stones. 10/02/2022?51-year-old female followed for kidney stones here in fu post 24 hr urine PMhistory of psoriatic arthritis, Bradley's disease. s/p Left ureteral stent on 06/26/22.? s/p left ureteroscopy stone extraction, stent removal on 07/16/22? --? Discussed 24 hour urine results-Collected 09/06/22:? Total volume? 590? mL, Calcium? 142 mg; Oxalate? 17? mg, Sodium 113, Citrate? 437? mg.? Instructed on importance of fluid intake up to 2.5 liters important, Continue with Low oxalate diet, low sodium diet. Plan: follow up in 6months renal sono, KUB and repeat 24 hr urine Treatment course: s/p Left ureteral stent on 06/26/22.? s/p left ureteroscopy left distal stone extraction, stent removal on 07/16/22? Imaging: CT Abd/pelvis 06/23/22--KIDNEYS AND URETERS: A punctate obstructing stone is noted in the distal left ureter,? with with question of possible additional stone slightly distally? which results in mild proximal hydroureteronephrosis. Few additional punctate nonobstructing bilateral renal stones are also seen. Left renal hypodensity too small to characterize. (note s/p Left ureteral stent 06/26/22) [facility] Medical History Nephrolithiasis Psoriatic arthritis Surgical History S/P cystoscopy with ureteral stent placement Family History Father No problems noted. Mother No problems noted. Social History Household Members: Spouse and Children Housing: House Do you presently have visiting nurse or other home services: No Alcohol intake: never Patient Tobacco Use Status: Never used Tobacco service: No Current occupational status: employed Review of Systems Const All systems reviewed & are unremarkable except as noted in HPI and below Reports no additional complaints Eyes Reports no additional complaints ENT Reports no additional complaints Card Reports no additional complaints Resp Reports no additional complaints GI Reports no additional complaints Reports as per HPI Musc Reports no additional complaints Skin/Breast Reports system reviewed and no additional complaints, except as documented Neuro Reports no additional complaints Psych Reports no additional complaints Endo Reports no additional complaints Yinka/Lymph Reports no additional complaints Aller/Immun Reports no additional complaints Telehealth Telehealth Telehealth Platform: Telephone Location of provider rendering services: practice address Location of patient: address on file Patient Identification confirmed using: Name, : Yes Telehealth method: voice only Patient verbally consented to treatment: Yes Patient verbally consented to billing insurance company: Yes Patient informed of any privacy concerns related to visit: Yes Minutes spent on Phone/Video with Pt.: 14 Results Reviewed Results Reviewed: Date of Service: 04/01/25 EXAMINATION: US RETROPERITONEAL LIMITED (RENAL ONLY) CLINICAL INFORMATION: Calculus of kidney. COMPARISON: 06/13/2024 TECHNIQUE: Real-time imaging of the kidneys. FINDINGS: RIGHT KIDNEY: 11.5 x 4.7 x 4.9 cm (SAG x AP x TRV). The kidney is normal in size, contour, and echogenicity. Renal cortical thickness is normal. No suspicious focal parenchymal lesions. There is a mid pole simple cyst measuring 0.7 x 0.6 x 0.8 cm. There are 2 nonobstructing calculi present, larger in the midpole measuring 3 x 2 x 2 mm. LEFT KIDNEY: 9.6 x 5.2 x 4.0 cm (SAG x AP x TRV). The kidney is normal in size, contour, and echogenicity. Renal cortical thickness is normal. No suspicious focal parenchymal lesions. There is a lower pole simple cyst measuring 1.3 x 1.0 x 1.2 cm. There are 4 nonobstructing calculi, largest in the lower pole measuring 6 x 2 x 3 mm. IMPRESSION: 1. Bilateral nonobstructing nephrolithiasis. 2. Small simple renal cysts bilaterally. 3. No hydronephrosis or suspicious lesion. - Date of Service: 06/21/24 EXAMINATION: CLINICAL INFORMATION: Flank pain, calculus of kidney, hydronephrosis, pyelonephritis. COMPARISON: 11/03/2023 ultrasound retroperitoneum ON 02/27/2023. TECHNIQUE: Real-time imaging of the kidneys and bladder. Limited visualization due to bowel gas. FINDINGS: RIGHT KIDNEY: 11.4 x 4.6 x 5.7 cm (SAG x AP x TRV). No hydronephrosis. 0.6 and 0.4 cm upper pole calculi. Renal cortical thickness is normal. Limited visualization. 0.8 cm mid pole cyst with benign features. There is no indication for follow-up imaging. LEFT KIDNEY: 9.8 x 4.7 x 4.2 cm (SAG x AP x TRV). No hydronephrosis. 0.8 and 0.5 cm lower pole calculi. 0.5 cm upper pole calculus. Renal cortical thickness is normal. Limited visualization. 1.2 cm lower pole cyst with benign features. There is no indication for follow-up imaging. IMPRESSION: Bilateral nonobstructive renal calculi. No hydronephrosis. Date of Service: 11/03/23 EXAMINATION: US RETROPERITONEAL COMPLETE (RENAL) CLINICAL INFORMATION: Renal calculus. COMPARISON: Renal ultrasound from 02/27/2023. Abdomen CT from 06/23/2022. TECHNIQUE: Real-time imaging of the kidneys and bladder. FINDINGS: RIGHT KIDNEY: 12 x 5 x 5.1 cm (SAG x AP x TRV). 0.7 cm simple cyst of the interpolar region. No renal imaging follow-up is recommended for simple cyst. Questionable finding of a small 0.4 cm calyceal stone of the interpolar area. A calyceal stone in the upper pole measures up to 0.5 cm and is unchanged compared to 02/27/2023. No hydronephrosis. LEFT KIDNEY: 10.4 x 5.1 x 4.1 cm (SAG x AP x TRV). 1.1 cm simple cyst of the lower pole. No renal imaging follow-up recommended. 0.5 cm calyceal stone of the lower pole is unchanged compared to 02/27/2023. Also, there appears to be a small, approximately 0.3 cm stone in the interpolar area and possible 0.4 cm stone in the upper pole. No large calculi or hydronephrosis. A region of decreased echotexture at the posterior upper pole corresponds to site of chronic cortical thinning/atrophy seen on abdomen CT from 06/23/2022. BLADDER: Well distended and normal. Bilateral ureteral jets are demonstrated. Prevoid bladder volume is 170 mL. Postvoid bladder volume is 4 mL. IMPRESSION: * Again noted are small bilateral renal calculi. No large stones or hydronephrosis. * Urinary bladder is normal. Date of Service: 02/27/23 EXAMINATION: US RETROPERITONEAL LIMITED (RENAL ONLY) CLINICAL INFORMATION: Calculus of kidney. COMPARISON: X-ray abdomen KUB same date. CT abdomen and pelvis 06/23/2022. FINDINGS: RIGHT KIDNEY: 10.9 x 4.7 x 6.0 cm (SAG x AP x TRV). Medial midpole 0.5 cm cyst is difficult to characterize due to small size. There is a 0.7 cm upper pole and a 0.3 cm mid pole calculi. No hydronephrosis. Limited visualization. Renal cortical thickness is normal. LEFT KIDNEY: 10.4 x 4.6 x 4.4 cm (SAG x AP x TRV). Renal calculi measure 0.3 cm midpole, 0.6 cm lower pole and 0.6 cm lower pole. Renal cortical thickness is normal. No hydronephrosis. Limited visualization. There is a 1.2 x 1.1 x 1.1 cm cyst lower pole with benign features. There is no indication for follow-up imaging. IMPRESSION: Bilateral renal calculi. No hydronephrosis. Date of Service: 02/27/23 EXAMINATION: XR ABDOMEN KUB CLINICAL INDICATION: Calculus of kidney.? COMPARISON: Renal ultrasound performed today. CT scan of the abdomen and pelvis dated 06/23/2022.? FINDINGS: The bowel gas pattern is normal with no evidence of ileus or obstruction. A 0.3 cm radiopaque density overlies the upper pole the right kidney. Multiple phleboliths are seen overlying the inferior pelvis. Mild degenerative disc disease is seen at L3-L4 and L4-L5. L5-S1 is transitional with partial sacralization of L5 on the right side. IMPRESSION: 1.? 0.3 cm radiopaque density overlying of both right kidney may represent intrarenal calculus. Other known intrarenal calculi are not as well visualized radiographically. Please refer to the renal ultrasound from today for more detailed findings. Assessment & Plan Assessment & Plan (1) Bilateral kidney stones: Code(s): N20.0 - Calculus of kidney Category: Medical (2) Nephrolithiasis: Code(s): N20.0 - Calculus of kidney Category: Medical Plan Plan left ESWL. Cont Vit b6 100 mg daily. Patient Instructions: The patient had an opportunity to ask questions regarding treatment plan. The patient expressed understanding and agreement with the above treatment plan. The patient is aware they should contact our office by phone for worsening of their current condition or the appearance of new symptoms. Compliance is encouraged with any medications and followup testing that is ordered. It is a privilege to be allowed the opportunity to participate in the urologic care of your patient. If you have any questions or concerns regarding treatment for the above conditions please do not hesitate to contact me. The office telephone contact is [phone]. This note is constructed in part using voice recognition software. While every effort has been made to ensure accuracy inspector chief errors may have been included. Yours sincerely, Hernando Davis MD Coding Level of Care Code Tele Est Pt Level 4 (49510) Diagnoses Bilateral kidney stones N20.0 Nephrolithiasis N20.0
--- OUTSIDE RECORDS SUMMARY | 2025-04-15 09:23 | XMS_ITS | Encounter Summary ---
Author Organization [facility] Address [address] [place] [id number] Phone Care Team Providers Care Technician Trainee Name Role Phone Ton Robert DO Unavailable Ton Robert DO Primary Care Provider [phone] Reason for Visit * Reason Comments Med Change Request Encounter Details Date Type Department Care Team (Late st Contact Info) Description 01/13/2025 Refill [facility] [place] [address] [place] [address] Rachel Kelly MD, PhD [address] [place] [address] [facility], [place] [address] [email or web address] Med Change Request Social History Tobacco Use Types Packs/Day Years Used Date Smoking Tobacco: Never Passive Smoke Exposure: Never Smokeless Tobacco: Never Alcohol Use Standard Drinks/Week Comments Not Currently 0 (1 standard drink = 0.6 oz pur e alcohol) Education Answer Date Recorded Are you interested in more education? Not on erich e 12/20/2022 Are you concerned about learning? Not on file 12/20/2022 No 12/20/2022 No 12/20/2022 Digital Access Answer Date Recorded No 01/18/2023 No 01/18/2023 Reliable internet access at home? Not on file 01/18/2023 Device with a working camera? Not on file Comments Unknown Sex and Gender Information Value Date Recorded Sex Assigned at Not on file Legal Sex Female 2:25 PM EST Gender Identity Not on file Sexual Orientation Not on file documented as of this encounter Plan of Treatment Upcoming Encounters Date Type Department Care Team (Late st Contact Info) Description 04/18/2025 9:40 AM EDT Office Visit [facility] [place] [address] [place] [address] Rachel Kelly MD, PhD [address] [place] [address] [facility], [place] [address] [email or web address] documented as of this encounter Visit Diagnoses Not on filedocumented in this encounter Care Teams Technician Trainee Relationship Specialty Start Date End Date Ton Robert DO [address] [place] [id number] PCP - General Internal Medicine 10/18/24 Ton Robert DO Internal Medicine 07/10/18 documented as of this encounter Additional Source Comments The information contained in this document represents components of the legal health record. It is not the complete legal health record.[facility]
== END 2025-04-15 11:02 | disposition home or self-care (01) ==
LOC: HO.HUSH 09:18
PROVIDERS: PCP Internal Medicine; Visit Provider Urology
DX: N20.0 Calculus of kidney (principal)
CPT/HCPCS: 98013